=== PATIENT | male | born 1980 | race Caucasian/White ===

== ENCOUNTER 2019-08-01 13:47 | Emergency (ER) | payer SELFPAY ==
--- NOTE | 2019-08-01 14:00 | ER ---
Nurse's Notes [facility] Name: Jatinder Scott Age: 38 yrs Sex: Male : 1980 Arrival Date: 08/01/2019 Time: 13:48 Bed 12 Private MD: Domingo Dunlap H Diagnosis: Foreign body in left ear Presentation: 08/01 13:54 Presenting complaint: Patient states: A piece of my earbuds is stuck deep in my left la1 ear. Transition of care: patient was not received from another setting of care. Onset of symptoms was August 01, 2019. Risk Assessment: Do you want to hurt yourself or someone else? Patient reports no desire to harm self or others. Initial Sepsis Screen: Does the patient meet any 2 criteria? No. Patient's initial sepsis screen is negative. Does the patient have a suspected source of infection? No. Patient's initial sepsis screen is negative. Care prior to arrival: None. 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 - Social history:: Smoking status: Patient/guardian denies using tobacco. - Ebola Screening: : No symptoms or risks identified at this time. Screenin:55 Abuse screen: Denies threats or abuse. Nutritional screening: No deficits noted. la1 Tuberculosis screening: No symptoms or risk factors identified. Fall Risk None identified. Assessment: 13:55 General: Appears in no apparent distress. Behavior is calm, cooperative. Pain: la1 Complains of pain in left ear. Neuro: Level of Consciousness is awake, alert, obeys commands. Cardiovascular: Capillary refill < 3 seconds Patient's skin is warm and dry. Respiratory: Airway is patent Respiratory effort is even, unlabored. GI: No signs and/or symptoms were reported involving the gastrointestinal system. : No signs and/or symptoms were reported regarding the genitourinary system. Vital Signs: 13:55 BP 155 / 100; Pulse 74; Resp 16; Temp 97.6; Pulse Ox 100% on R/A; Weight 136.08 kg; la1 Height 6 ft. 4 in. (193.04 cm); 13:55 Body Mass Index 36.52 (136.08 kg, 193.04 cm) la1 ED Course: 13:48 Patient arrived in ED. am2 13:48 Domingo Dunlap DO is Private Physician. am2 13:54 Triage completed. la1 13:54 Arm band placed on. la1 13:56 Patient has correct armband on for positive identification. la1 13:57 Oscar Bello NP is PHCP. pm1 13:57 Adrienne Gibson MD is Attending Physician. pm1 14:02 No provider procedures requiring assistance completed. Patient did not have IV access ss during this emergency room visit. Administered Medications: No medications were administered Outcome: 13:59 Discharge ordered by MD. pm1 14:02 Discharged to home ambulatory. ss 14:02 Condition: good 14:02 Discharge instructions given to patient, Instructed on discharge instructions, follow up and referral plans. Demonstrated understanding of instructions, follow-up care, medications. 14:03 Patient left the ED. ss Signatures: Nazanin Vazquez RN RN Robert Su RN RN la1 Oscar Bello NP DRIVER'S EDUCATION INSTRUCTOR pm1 Anastacia Alicea am2
--- NOTE | 2019-08-01 14:00 | EDPHYS ---
Physician Documentation [facility] Name: Jatinder Scott Age: 38 yrs Sex: Male : 1980 Arrival Date: 08/01/2019 Time: 13:48 Bed 12 Private MD: Domingo Dunlap H ED Physician Adrienne Gibson HPI: 08/01 13:57 This 38 yrs old Male presents to ER via Ambulatory with complaints of Foreign pm1 Body In Ear - left/earbud. 13:57 The patient presents with a foreign body sensation, piece of his ear bud. The pm1 complaints affect the left ear. Onset: The symptoms/episode began/occurred this morning, at 04:00. Modifying factors: The symptoms are alleviated by nothing, the symptoms are aggravated by nothing. Associated signs and symptoms: The patient has no apparent associated signs or symptoms. Severity of symptoms: in the emergency department the symptoms are unchanged. The patient has not experienced similar symptoms in the past. 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 - Social history:: Smoking status: Patient/guardian denies using tobacco. - Ebola Screening: : No symptoms or risks identified at this time. ROS: 13:57 Constitutional: Negative for fever, chills, and weight loss. pm1 13:57 ENT: Positive for foreign body sensation. 13:57 All other systems are negative. Exam: 13:57 Constitutional: This is a well developed, well nourished patient who is awake, alert, pm1 and in no acute distress. Head/Face: Normocephalic, atraumatic. Eyes: Pupils equal round and reactive to light, extra-ocular motions intact. Lids and lashes normal. Conjunctiva and sclera are non-icteric and not injected. Cornea within normal limits. Periorbital areas with no swelling, redness, or edema. 13:57 ENT: External ear(s): are unremarkable, Ear canal(s): foreign body, small rubber black object, in the left external ear canal. 13:57 Neuro: Orientation: is normal, Motor: moves all fours, Gait: is steady, at a normal pace, without difficulty. Vital Signs: 13:55 BP 155 / 100; Pulse 74; Resp 16; Temp 97.6; Pulse Ox 100% on R/A; Weight 136.08 kg; la1 Height 6 ft. 4 in. (193.04 cm); 13:55 Body Mass Index 36.52 (136.08 kg, 193.04 cm) la1 Procedures: 13:57 Foreign Body Removal: small black rubber object from left ear canal, by using alligator pm1 clamps, The patient tolerated the removal well. MDM: 13:57 Patient medically screened. pm1 13:58 Data reviewed: vital signs. Data interpreted: Pulse oximetry: on room air is 100 %. pm1 Interpretation: normal. Counseling: I had a detailed discussion with the patient and/or guardian regarding: the historical points, exam findings, and any diagnostic results supporting the discharge/admit diagnosis, to return to the emergency department if symptoms worsen or persist or if there are any questions or concerns that arise at home. Administered Medications: No medications were administered Disposition: 17:46 Co-signature as Attending Physician, Adrienne Gibson MD. ma2 Disposition: 08/01/19 13:59 Discharged to Home. Impression: Foreign body in left ear. - Condition is Stable. - Discharge Instructions: Ear Foreign Body. - Medication Reconciliation Form, Thank You Letter, Antibiotic Education, Prescription Opioid Use form. - Follow up: Emergency Department; When: As needed; Reason: Worsening of condition. Follow up: Private Physician; When: As needed; Reason: Recheck today's complaints, Continuance of care, Re-evaluation by your physician. - Problem is new. - Symptoms are resolved. Signatures: Nazanin Vazquez RN RN Robert Su RN RN la1 Oscar Bello NP APPEALS SPECIALIST pm1 Adrienne Gibson MD MD ma2 Corrections: (The following items were deleted from the chart) 14:03 13:59 08/01/2019 13:59 Discharged to Home. Impression: Foreign body in left ear. ss Condition is Stable. Forms are Medication Reconciliation Form, Thank You Letter, Antibiotic Education, Prescription Opioid Use. Follow up: Emergency Department; When: As needed; Reason: Worsening of condition. Follow up: Private Physician; When: As needed; Reason: Recheck today's complaints, Continuance of care, Re-evaluation by your physician. Problem is new. Symptoms are resolved. pm1
[2019-08-01 14:15] VITALS: BP 155/100; TEMP 97.6; O2SAT 100
== END 2019-08-01 14:03 | disposition home or self-care (01) ==
LOC: ER 13:47
PROC: 09C4XZZ Extirpation of Matter from Left External Auditory Canal, External Approach (ICD-10-PCS; principal; 2019-08-01)
DX: T16.2XXA Foreign body in left ear, initial encounter (principal); X58.XXXA Exposure to other specified factors, initial encounter
CPT/HCPCS: 99281

== ENCOUNTER 2020-04-30 03:20 | Inpatient (IN) | payer SELFPAY ==
[2020-04-30] MEDS ORDERED: FOLIC ACID 5 MG/ML VIAL ONE (04:10)
[2020-04-30] MEDS ORDERED: MULTIVITAMINS 10 ML VIAL (INJ) IV ONE (04:10)
[2020-04-30] MEDS ORDERED: NA CHLORIDE 0.9% 1,000 ML ONE ×2 (04:10→14:26)
[2020-04-30] MEDS ORDERED: THIAMINE 200 MG/2 ML INJ ONE (04:10)
[2020-04-30 04:16] LABS: Absolute Lymphocytes (CBC) 0.6 K/uL (0.7-4.9); Basophils % 0.2 % (0-1.3); Hematocrit 48.8 % (39.6-49.0); Lymphocytes % 4.7 % (15.3-44.8); MPV 7.6 fL (7.6-11.3); RBC Red Blood Cell Count 4.81 M/uL (4.33-5.43)
[2020-04-30 04:22] LABS: Protime INR 0.91
[2020-04-30 05:08] LABS: Blood Morphology Comment NOT SEEN (NOT SEEN); Platelet Estimate ADEQ
[2020-04-30 05:09] LABS: ALT/SGPT 53 U/L (12-78); AST/SGOT 42 U/L (15-37); Albumin 3.9 g/dL (3.4-5.0); Alkaline Phosphatase 82 U/L (45-117); BUN Blood Urea Nitrogen 14 mg/dL (7-18); Bicarbonate 28 mmol/L (21-32); Bilirubin Direct < 0.1 mg/dL (0-0.2); Bilirubin Total 0.2 mg/dL (0.2-1.0); Glucose Level 108 mg/dL (74-106); Protein, Total 7.9 g/dL (6.4-8.2); Sodium Level 144 mmol/L (136-145)
[2020-04-30 06:02] LABS: Barbiturates NEGATIVE (NEGATIVE); Benzodiazepines POSITIVE (NEGATIVE); Cocaine POSITIVE (NEGATIVE); METHAMPHETAM NEGATIVE (NEGATIVE); Methadone NEGATIVE (NEGATIVE); Opiates POSITIVE (NEGATIVE); Phencyclidine NEGATIVE (NEGATIVE); THC Cannibis NEGATIVE (NEGATIVE)
--- NOTE | 2020-04-30 06:04 | ER ---
Nurse's Notes [facility] Name: Jatinder Scott Age: 39 yrs Sex: Male : 1980 Arrival Date: 04/30/2020 Time: 03:19 Bed 23 Private MD: Diagnosis: Altered mental status. Pneumonia. Substance abuse Presentation: 04/30 03:19 Chief complaint: EMS states: pt spouse found pt sleeping in kitchen on the floor, sg seemed confused to her so she called EMS for assistance. upon EMS arrival pt is a\T\ox3, but is drowsy and will fall asleep without stimulation, VSS in route to ER, pt reports having taken his hydrocodone and drinking alcohol beginning around 12 noon today. Coronavirus screen: Proceed with normal triage. Ebola Screen: Patient negative for fever greater than or equal to 101.5 degrees Fahrenheit, and additional compatible Ebola Virus Disease symptoms Patient denies exposure to infectious person. Patient denies travel to an Ebola-affected area in the 21 days before illness onset. No symptoms or risks identified at this time. Initial Sepsis Screen: Does the patient meet any 2 criteria? No. Patient's initial sepsis screen is negative. Does the patient have a suspected source of infection? No. Patient's initial sepsis screen is negative. Risk Assessment: Do you want to hurt yourself or someone else? Patient reports no desire to harm self or others. Onset of symptoms was April 30, 2020. Transition of care: patient was not received from another setting of care. 03:19 Method Of Arrival: EMS: [facility] 03:19 Acuity: JAYLEEN 3 sg Historical: - Allergies: 03:22 No Known Allergies; sg - Home Meds: 03:22 Hydrocodone-Acetaminophen Oral [Active]; sg - PMHx: 03:22 CYST IN BRAIN; sg - Immunization history:: Adult Immunizations not up to date. - Social history:: Smoking status: Patient reports the use of cigarette tobacco products, Patient uses alcohol, weekly. Screenin:30 Abuse screen: Denies threats or abuse. Denies injuries from another. Nutritional rv screening: No deficits noted. Tuberculosis screening: No symptoms or risk factors identified. Fall Risk None identified. Assessment: 03:30 General: Appears uncomfortable, Behavior is calm, cooperative. Pain: Denies pain. rv Neuro: Level of Consciousness is obeys commands, lethargic, Oriented to person, place, time, situation, Speech is normal, Pupils are PERRLA. Cardiovascular: Patient's skin is warm and dry. Rhythm is sinus tachycardia. Respiratory: Airway is patent Respiratory effort is even, unlabored, Breath sounds are clear bilaterally. Derm: Skin is intact. 04:30 Reassessment: patient back from CT scan. able to answer question. orientation x four. rv denies any pain. unable to maintain wakefulness. awaiting test results. 05:05 Reassessment: Patient and/or family updated on plan of care and expected duration. Pain rv level reassessed. Patient is alert, oriented x 3, equal unlabored respirations, skin warm/dry/pink. Neuro: Level of Consciousness is awake, alert, obeys commands, Oriented to person, place, time, situation, Moves all extremities. Full function Speech is normal. 07:00 General: Appears uncomfortable, Behavior is calm, cooperative. Pain: Denies pain. rb1 Neuro: Level of Consciousness is awake, alert, obeys commands, Oriented to person, place, time, situation. Cardiovascular: Capillary refill < 3 seconds Patient's skin is warm and dry. Respiratory: Airway is patent Respiratory effort is even, unlabored, Respiratory pattern is regular, symmetrical. GI: No signs and/or symptoms were reported involving the gastrointestinal system. : No signs and/or symptoms were reported regarding the genitourinary system. Musculoskeletal: Range of motion: intact in all extremities. 08:00 Reassessment: Patient appears in no apparent distress at this time. No changes from rb1 previously documented assessment. 08:57 Reassessment: Left a voice mail for Dr. Hramon requesting medication for agitation. rb1 23:55 Reassessment: report given to Caroline LONGORIA nurse for room 215. jd3 Vital Signs: 03:29 BP 136 / 70; Pulse 106; Resp 20; Temp 97.7(O); Pulse Ox 100% ; Weight 137.89 kg (R); rv Pain 0/10; 04:31 BP 145 / 79; Pulse 103; Resp 16; Pulse Ox 95% on R/A; rv 05:05 BP 146 / 93; Pulse 99; Resp 18; Pulse Ox 97% on R/A; rv 05:19 Temp 98.5(O); rv 07:00 BP 113 / 58; Pulse 102; Resp 21; Pulse Ox 95% ; rb1 08:29 BP 145 / 91; Pulse 102; Resp 20; Temp 99.1(O); Pulse Ox 90% on R/A; mh5 21:19 BP 153 / 82 LA (auto/lg); jp3 ED Course: 03:19 Patient arrived in ED. sg 03:19 Melvin Lazo MD is Attending Physician. pkl 03:19 Arm band placed on. sg 03:21 Triage completed. sg 03:29 Julian Lau, VON is Primary Nurse. rv 03:31 Patient has correct armband on for positive identification. property assessment monitor on. Pulse rv ox on. NIBP on. 03:49 Inserted saline lock: 20 gauge in left antecubital area, using aseptic technique. Blood rv collected. 04:27 CT Head Brain wo Cont In Process Unspecified. EDMS 05:08 Notified ED physician of a critical lab result(s). notified of bands of 18 per Servando in the lab. 06:02 Dev Moss is Hospitalizing Provider. pkl 07:03 XRAY CXR (1 view) In Process Unspecified. EDMS 08:47 Placed in gown. Call light in reach. Side rails up X 1. Warm blanket given. Pillow mh5 given. 14:00 Repeat lab(s) drawn. by me, sent to lab. First set of blood cultures drawn by me. jp3 14:12 Second set of blood cultures drawn by me. jp3 14:17 Diet tray given. Diet: Patient given a regular meal tray. jp3 17:51 Removal of peripheral IV. Catheter intact, dressing applied. jp3 17:51 Repeat lab(s) drawn. by me, sent to lab. Inserted saline lock: 20 gauge in right [facility] antecubital area, using aseptic technique. Blood collected. 17:55 Diet tray given. jp3 21:19 Repeat lab(s) drawn. by me, sent to lab. jp3 Administered Medications: 04:25 Drug: Banana Bag - (NS 0.9% 1000 ml, foLIC Acid 1 mg, Thiamine 100 mg, Multivitamin 1 rv amp) Route: IV; Rate: calculated rate; Site: left antecubital; Outcome: 06:03 Decision to Hospitalize by Provider. pkl 07/08 00:19 Patient left the ED. jd3 Signatures: Dispatcher [employer] EDMS Jasiel Aguero, RN RN Melvin Lacey MD MD pkl Barber, Rebecca RN RN rb1 Lia Burnett [facility] oHmero Boucher RN RN jd3 Julian Lau RN RN rv Travis Rangel jp3 Corrections: (The following items were deleted from the chart) 04/30 03:46 03:19 Chief complaint: EMS states: pt spouse found pt sleeping in kitchen on the floor, sg seemed confused to her so she called EMS for assistance. upon EMS arrival pt is alter and orientedx3 is drowsy and will fall asleep without stimulation, VSS in route to ER, pt reports having taken his hydrocodone and drinking alcohol beginning around 12 noon today sg 03:46 03:19 Chief complaint: EMS states: pt spouse found pt sleeping in kitchen on the floor, sg seemed confused to her so she called EMS for assistance. upon EMS arrival pt is aa\T\ox3, but is drowsy and will fall asleep without stimulation, VSS in route to ER, pt reports having taken his hydrocodone and drinking alcohol beginning around 12 noon today sg 10:25 07:00 BP 113 / 58; Pulse 102bpm; Resp 21bpm; Pulse Ox 20%; rb1 rb1
--- NOTE | 2020-04-30 06:04 | EDPHYS ---
Physician Documentation [facility] Name: Jatinder Scott Age: 39 yrs Sex: Male : 1980 Arrival Date: 04/30/2020 Time: 03:19 Bed 23 Private MD: ED Physician Melvin Lazo HPI: 04/30 03:55 This 39 yrs old Male presents to ER via EMS with complaints of Altered Mental pkl Status. 03:55 The patient presents with decreased mental status. Onset: The symptoms/episode pkl began/occurred just prior to arrival. Possible causes: drug use, narcotics, alcohol. Patient admits to drinking alcohol and taking hydrocodone earlier today. Historical: - Allergies: 03:22 No Known Allergies; sg - Home Meds: 03:22 Hydrocodone-Acetaminophen Oral [Active]; sg - PMHx: 03:22 CYST IN BRAIN; sg - Immunization history:: Adult Immunizations not up to date. - Social history:: Smoking status: Patient reports the use of cigarette tobacco products, Patient uses alcohol, weekly. ROS: 03:55 Eyes: Negative for injury, pain, redness, and discharge, ENT: Negative for injury, pkl pain, and discharge, Neck: Negative for injury, pain, and swelling, Cardiovascular: Negative for chest pain, palpitations, and edema, Respiratory: Negative for shortness of breath, cough, wheezing, and pleuritic chest pain, Abdomen/GI: Negative for abdominal pain, nausea, vomiting, diarrhea, and constipation, Back: Negative for injury and pain, : Negative for injury, bleeding, discharge, and swelling, MS/Extremity: Negative for injury and deformity, Skin: Negative for injury, rash, and discoloration. 03:55 Neuro: Positive for altered mental status. Exam: 03:55 Head/Face: Normocephalic, atraumatic. Eyes: Pupils equal round and reactive to light, pkl extra-ocular motions intact. Lids and lashes normal. Conjunctiva and sclera are non-icteric and not injected. Cornea within normal limits. Periorbital areas with no swelling, redness, or edema. ENT: Nares patent. No nasal discharge, no septal abnormalities noted. Tympanic membranes are normal and external auditory canals are clear. Oropharynx with no redness, swelling, or masses, exudates, or evidence of obstruction, uvula midline. Mucous membranes moist. Neck: Trachea midline, no thyromegaly or masses palpated, and no cervical lymphadenopathy. Supple, full range of motion without nuchal rigidity, or vertebral point tenderness. No Meningismus. Chest/axilla: Normal chest wall appearance and motion. Nontender with no deformity. No lesions are appreciated. Cardiovascular: Regular rate and rhythm with a normal S1 and S2. No gallops, murmurs, or rubs. Normal PMI, no JVD. No pulse deficits. Respiratory: Lungs have equal breath sounds bilaterally, clear to auscultation and percussion. No rales, rhonchi or wheezes noted. No increased work of breathing, no retractions or nasal flaring. Abdomen/GI: Soft, non-tender, with normal bowel sounds. No distension or tympany. No guarding or rebound. No evidence of tenderness throughout. Back: No spinal tenderness. No costovertebral tenderness. Full range of motion. Skin: Warm, dry with normal turgor. Normal color with no rashes, no lesions, and no evidence of cellulitis. MS/ Extremity: Pulses equal, no cyanosis. Neurovascular intact. Full, normal range of motion. 03:55 Neuro: Orientation: drowsy, Mentation: slow to respond, Cranial nerves: grossly normal, Motor: moves all fours. Vital Signs: 03:29 BP 136 / 70; Pulse 106; Resp 20; Temp 97.7(O); Pulse Ox 100% ; Weight 137.89 kg (R); rv Pain 0/10; 04:31 BP 145 / 79; Pulse 103; Resp 16; Pulse Ox 95% on R/A; rv 05:05 BP 146 / 93; Pulse 99; Resp 18; Pulse Ox 97% on R/A; rv 05:19 Temp 98.5(O); rv 07:00 BP 113 / 58; Pulse 102; Resp 21; Pulse Ox 95% ; rb1 08:29 BP 145 / 91; Pulse 102; Resp 20; Temp 99.1(O); Pulse Ox 90% on R/A; mh5 21:19 BP 153 / 82 LA (auto/lg); jp3 MDM: 03:19 Patient medically screened. pkl 05:14 Data reviewed: vital signs, nurses notes, lab test result(s), radiologic studies, CT pkl scan, plain films. ED course: Patient more alert. Said he had fever coughing since yesterday.. 05:52 ED course: Patient feeling better. Discussed lab. and X' rays and CT Scan results. pkl 06:01 ED course: Talked to Dr. Moss,, admit. pkl 04/30 03:52 Order name: Acetaminophen; Complete Time: 05:51 pkl 04/30 03:52 Order name: Basic Metabolic Panel; Complete Time: 05:51 pkl 04/30 03:52 Order name: CBC with Diff; Complete Time: 05:09 pkl 04/30 03:52 Order name: ETOH Level; Complete Time: 04:46 pkl 04/30 03:52 Order name: Hepatic Function; Complete Time: 05:51 pkl 04/30 03:52 Order name: PT-INR; Complete Time: 04:47 pkl 04/30 03:52 Order name: Ptt, Activated; Complete Time: 04:47 pkl 04/30 03:52 Order name: Salicylate; Complete Time: 04:46 pkl 04/30 03:52 Order name: Urine Drug Screen; Complete Time: 06:04 pkl 04/30 04:00 Order name: Glucose, Ancillary Testing; Complete Time: 04:47 EDMS 04/30 04:17 Order name: Manual Differential; Complete Time: 05:09 EDMS 04/30 05:14 Order name: COVID-19 rv 04/30 12:39 Order name: CORONAVIRUS EDMS 04/30 14:50 Order name: Troponin I EDMS 04/30 03:52 Order name: EKG; Complete Time: 03:54 pkl 04/30 03:52 Order name: EKG - Nurse/Tech; Complete Time: 04:25 pkl 04/30 03:52 Order name: IV Saline Lock; Complete Time: 03:58 pkl 04/30 03:52 Order name: Labs collected and sent; Complete Time: 03:58 pkl 04/30 03:52 Order name: Urine Dipstick-Ancillary (obtain specimen); Complete Time: 05:05 pkl 04/30 03:52 Order name: CT Head Brain wo Cont pkl 04/30 05:10 Order name: XRAY CXR (1 view) pkl 04/30 14:50 Order name: Thyroid Stimulating Hormone EDID 04/30 18:22 Order name: Troponin I EDID 04/30 21:49 Order name: Troponin I EDID Administered Medications: 04:25 Drug: Banana Bag - (NS 0.9% 1000 ml, foLIC Acid 1 mg, Thiamine 100 mg, Multivitamin 1 rv amp) Route: IV; Rate: calculated rate; Site: left antecubital; Disposition: 04/30/20 06:03 Hospitalization ordered by Dev Moss for Observation. Preliminary diagnosis is Altered mental status. Pneumonia. Substance abuse. - Bed requested for Telemetry/MedSurg (observation). - Status is Observation. jd3 - Condition is Stable. - Problem is new. - Symptoms are unchanged. Signatures: Dispatcher [employer] EDMS Raven Jordan, RN RN Erlinda Gonzalez RN VON dmJasiel Granda RN Melvin Tapia MD MD pkl Davies, Jonathon, RN RN jd3 Julian Lau RN RN rv Corrections: (The following items were deleted from the chart) 06:06 06:03 Hospitalization Ordered by Dev Moss for Inpatient Admission. Preliminary pkl diagnosis is Altered mental status. Pneumonia. Bed requested for Telemetry/MedSurg (Inpatient). Status is Inpatient Admission. Condition is Stable. Problem is new. Symptoms are unchanged. pkl 06:55 06:06 04/30/2020 06:03 Hospitalization Ordered by Dev Moss for Inpatient pkl Admission. Preliminary diagnosis is Altered mental status. Pneumonia. Substance abuse. Bed requested for Telemetry/MedSurg (Inpatient). Status is Inpatient Admission. Condition is Stable. Problem is new. Symptoms are unchanged. pkl 08:31 06:55 04/30/2020 06:03 Hospitalization Ordered by Dev Moss for Observation. dmKenzie Preliminary diagnosis is Altered mental status. Pneumonia. Substance abuse. Bed requested for Telemetry/MedSurg (observation). Status is Observation. Condition is Stable. Problem is new. Symptoms are unchanged. pkl 23:00 08:31 04/30/2020 06:03 Hospitalization Ordered by Dev Moss for Observation. minna Preliminary diagnosis is Altered mental status. Pneumonia. Substance abuse. Bed requested for [facility] ER HOLD. Status is Observation. Condition is Stable. Problem is new. Symptoms are unchanged. dm5 05/01 00:19 04/30 23:00 04/30/2020 06:03 Hospitalization Ordered by Dev Moss for Observation. jd3 Preliminary diagnosis is Altered mental status. Pneumonia. Substance abuse. Bed requested for Telemetry/MedSurg (observation). Status is Observation. Condition is Stable. Problem is new. Symptoms are unchanged. kl
--- NOTE | 2020-04-30 07:22 | P.HP ---
Certification for Inpatient Patient admitted to: Observation With expected LOS: <2 Midnights Practitioner: I am a practitioner with admitting privileges, knowledge of patient current condition, hospital course, and medical plan of care. Services: Services provided to patient in accordance with Admission requirements found in Title 42 Section 412.3 of the Code of Federal Regulations Patient History Date of Service: 04/30/20 Reason for admission: Confusion History of Present Illness: 39-year-old gentleman with a history of hypertension, but pain and obesity was brought to the emergency department obtunded. According to reports the found him lying on the kitchen floor confused. Patient had mild leukocytosis and chest x-ray shows bilateral infiltrates in the ED. Patient's mental status had improved during my examination in the ED. He was awake and able to communicate, and admitted to taking [place] and diazepam last night. Patient reported nonproductive cough, he denied fever. He also reports some chest pain. Patient was up and ambulating to the bathroom in the ED. He is placed under observation for further management. Allergies No Known Allergies Allergy (Verified 12/17/11 00:33) Home Medications: Hydrocodone 10/APAP 325 [[place] 10/325] 1 each PO Q4HP PRN #0 tab 12/17/11 - Past Medical/Surgical History Diabetic: No -: Hypertension -: Chronic back pain -: Obesity - Family History Father -: Diabetes - Social History Alcohol use: Yes CD- Drugs: Yes Caffeine use: Yes Review of Systems Other: Except as documented, all other systems reviewed and negative. Physical Examination - Physical Exam General: In no apparent distress, Oriented x3, Other (Awake,) HEENT: Atraumatic, Normocephalic, PERRLA, Mucous membr. moist/pink, Sclerae nonicteric Neck: Supple, JVD not distended Respiratory: Normal air movement, Crackles/rales (Bilateral) Cardiovascular: No edema, Regular rate/rhythm, Normal S1 S2 Capillary refill: <2 Seconds Gastrointestinal: Normal bowel sounds, Soft and benign, Non-distended, No tenderness Musculoskeletal: No swelling, No erythema Integumentary: No rashes Neurological: Normal speech, Normal strength at 5/5 x4 extr, Cranial nerves 3-12 intact - Studies Laboratory Data (last 24 hrs) 04/30/20 03:55: PT 10.7, INR 0.91, APTT 30.3 04/30/20 03:55: WBC 12.3 H, Hgb 15.9, Hct 48.8, Plt Count 201 04/30/20 03:55: Sodium 144, Potassium 5.0, BUN 14, Creatinine 1.56 H, Glucose 108 H, Total Bilirubin 0.2, AST 42 H, ALT 53, Alkaline Phosphatase 82 Microbiology Data (last 24 hrs): 04/30/20 05:25 Nasopharnyx Coronavirus COVID-19 PCR - Final Assessment and Plan - Problems (Diagnosis) (1) Metabolic encephalopathy Current Visit: Yes Status: Acute (2) Pneumonia Current Visit: Yes Status: Acute (3) COVID-19 ruled out Current Visit: Yes Status: Acute (4) Obesity Current Visit: Yes Status: Acute (5) Leukocytosis Current Visit: Yes Status: Acute (6) Chest pain Current Visit: Yes Status: Acute - Plan Metabolic encephalopathy likely secondary to benzodiazepine and opioid use. Place patient under observation Hydrate with IV fluid. Neuro checks Screened for COVID 19 is pending. Droplet isolation Empiric IV antibiotics. Trend troponin. Echocardiogram pending troponin results. - Advance Directives Does patient have a Living Will: No Does patient have a Durable POA for Healthcare: No
--- NOTE | 2020-04-30 07:39 | RAD REPORT ---
EXAM DESCRIPTION: RAD - Chest Single View - 04/30/2020 7:03 am CLINICAL HISTORY: leukocytosis, shortness of breath COMPARISON: None TECHNIQUE: AP portable chest image was obtained 04/30/2020 7:03 am . FINDINGS: Lung volumes are low. Prominent overlying soft tissues affect the examination. No dense consolidations seen. Interstitial pattern is prominent with the baseline for this patient un known. Minimal airspace opacities are present as well. Cardiac silhouette is enlarged by portable technique, shallow inspiration and body habitus. Vasculatu re within normal limits. No measurable pleural effusion and no pneumothorax. No acute bony abnormality seen. No acute aortic findings suspected. IMPRESSION: Prominent interstitial pattern with baseline unknown. Patchy airspace opacities are present which could be infiltrate or edema.
[2020-04-30] MEDS ORDERED: ACETAMINOPHEN 325 MG TABLET ONE (10:28)
--- NOTE | 2020-04-30 10:54 | EKG ---
Test Date: 2020-04-30 Test Time: 04:20:12 Lead Case Manager: RV MEASUREMENT RESULTS: Intervals: Rate: 103 WV: 130 QRSD: 82 QT: 330 QTc: 432 [place]: P: 67 WV: 130 QRS: 37 T: 32 INTERPRETIVE STATEMENTS: Sinus tachycardia Otherwise normal ECG Compared to ECG 03/28/2016 04:27:16 Sinus rhythm no longer present Left ventricular hypertrophy no longer present Electronically Signed On 04-30-20 10:53:50 CDT by Nabor Ramsey
--- NOTE | 2020-04-30 12:47 | RAD REPORT ---
EXAM DESCRIPTION: CT - Head Brain Wo Cont - 04/30/2020 5:50 am CLINICAL HISTORY: Altered mental status TECHNIQUE: Multiple axial CT images of the brain were performed followed by sagittal and coronal rec onstructed images. The CT study is performed according to ALARA (as low as reasonably achievable) or ALARA/IMAGE GENTLY, with automatic adjustment of mA and/or kV according to patient size. Performed on: 04/30/2020 at 3:56 AM COMPARISON: 03/28/2016. FINDINGS: There is no evidence of mass, acute mass effect or midline shift. There is a stable arachn oid cyst along the right sylvian fissure. There is no evidence of acute intracranial hemorrhage. Ther e is stable asymmetry of the lateral ventricles. The cerebral sulci and ventricles are otherwise norm al in size and configuration. There are no focal abnormal areas of increased or decreased attenuation. There is trace mucosal thickening of the paranasal sinuses. The mastoid air cells are clear. The orbital contents are grossly unremarkable. No acute osseous abnormalities are identified. No focal soft tissue abnormalities are identified. IMPRESSION: 1. There is no evidence of acute intracranial pathology. 2. Stable arachnoid cyst along the right sylvian fissure and stable asymmetry of the lateral ventricl es. Electronically signed by: Barbara Wong DO 04/30/2020 4:37 AM CDT Due to temporary technical issues with the PACS/Fluency reporting system, reports are being signed by the in house radiologist without review as a courtesy to ensure prompt reporting. The interpreting r adiologist is fully responsible for the content of the report.
[2020-04-30] MEDS: AZITHROMYCIN IV 500 MG in NA CHLORIDE 0.9% 250 ML IVPB SCH (13:06)
[2020-04-30] MEDS ORDERED: ACETAMINOPHEN 325 MG TABLET PO PRN (13:06)
[2020-04-30] MEDS: ENOXAPARIN 40 MG/0.4 ML SQ SCH (13:06)
[2020-04-30] MEDS: NA CHLORIDE 0.9% 1,000 ML IV SCH (13:06)
[2020-04-30] MEDS ORDERED: ACETAMINOPHEN 500 MG TAB PO PRN (13:06)
[2020-04-30] MEDS: CEFTRIAXONE/SWI 1gm 1 GM/10 ML SYR IV SCH (13:06)
[2020-04-30] MEDS ORDERED: BENZONATATE 100 MG CAP PO PRN (13:06)
[2020-04-30] MEDS ORDERED: ENOXAPARIN 40 MG/0.4 ML SQ ONE (14:25)
[2020-04-30] MEDS ORDERED: CEFTRIAXONE/SWI 1gm 1 GM/10 ML SYR ONE (14:26)
[2020-04-30 14:50] LABS: Thyroid Stimulating Hormone 0.154 uIU/mL (0.360-3.740); Troponin I 0.41 ng/mL (0.0-0.045)
[2020-04-30] MEDS ORDERED: BENZONATATE 100 MG CAP PO ONE (14:57)
[2020-05-01 00:44] VITALS: BMI 37.6
[2020-05-01] MEDS: NA CHLORIDE 0.9% 1,000 ML IV SCH (05:06)
[2020-05-01 05:25] LABS: Urine Appearance CLEAR; Urine Bilirubin NEGATIVE (NEG); Urine Blood NEGATIVE (NEG); Urine Color YELLOW; Urine Glucose NEGATIVE (NEG); Urine Protein NEGATIVE (NEG)
[2020-05-01 05:27] LABS: Urine Microscopic Reflex NO UMIC
[2020-05-01 06:22] LABS: Absolute Lymphocytes (CBC) 1.7 K/uL (0.7-4.9); Basophils % 0.5 % (0-1.3); Hematocrit 46.1 % (39.6-49.0); MPV 8.9 fL (7.6-11.3); RBC Red Blood Cell Count 4.64 M/uL (4.33-5.43)
[2020-05-01 06:23] LABS: BUN Blood Urea Nitrogen 15 mg/dL (7-18); Bicarbonate 24 mmol/L (21-32); Glucose Level 93 mg/dL (74-106); Sodium Level 142 mmol/L (136-145)
[2020-05-01 06:27] LABS: Magnesium 2.3 mg/dL (1.8-2.4); Potassium 4.3 mmol/L (3.5-5.1)
[2020-05-01 06:28] LABS: Phosphorus 0.5 mg/dL (2.5-4.9)
[2020-05-01] MEDS ORDERED: POTASSIUM PHOS 30 MM in NA CHLORIDE 0.9% 500 ML IV ONE (08:00)
--- NOTE | 2020-05-01 08:29 | CON ---
Date of Consultation: 05/01/[address] Moss on 04/30/2020. I saw the patient on 05/01/2020. Reason For Consultation: Syncope, elevated troponin, metabolic encephalopathy and drug abuse. History Of Present Illness: Mr. Scott is 39 years old who has a history of arachnoid cyst in his b rain, but no previous medical history otherwise. He came in with syncope. He does not remember what happened and still does not remember what happened now, but according to him, he was blue on the delmy or, was found by his daughter. He does not remember the EMS bring him to the hospital, but he rememb ers the last when he came to the hospital. His blood pressure was 160/70, white count was 12,000, cr eatinine is 1.56. His creatinine is now improved to 0.8. His white count is down to 8.0. He was po sitive for cocaine and opioids. He admits to drug use. His EKG showed sinus tachycardia. Chest x-r ay showed possible infiltrate versus edema. His troponin was mildly elevated. He never had any ches t pain. Past Medical History: Negative. Allergies: NONE. Review of Systems: Negative. Social History: Positive for drugs and alcohol. Medications: At home include testosterone. Physical Examination: Vital Signs: His weight is 317 pounds. Blood pressure is 160/70. HEENT: Negative. Neck: Supple with no bruit. Chest: Clear. Cardiac: Revealed a regular rhythm and rate. No murmurs, gallops, or rubs. Abdomen: Benign. Extremities: Revealed no clubbing, cyanosis, or edema. Diagnostic Data: As stated earlier. Impression And Plan: 1.Elevated troponin secondary to drug abuse. 2.Mild renal insufficiency that is improved with hydration. 3.Elevated white count that has improved on antibiotics. The patient has received Lovenox. His thy roid level is low and that may need to be evaluated further, but from my standpoint, he needs an echo cardiogram today and if that is normal, he can go home. He needs to be counseled regarding his drug abuse and alcohol abuse. Maybe he can see somebody as an outpatient in that regard. MAHESH/NETTEL Voice ID: [id number] Report ID: [id number]
[2020-05-01] MEDS: CEFTRIAXONE/SWI 1gm 1 GM/10 ML SYR IV SCH (08:34)
[2020-05-01] MEDS: ENOXAPARIN 40 MG/0.4 ML SQ SCH (08:34)
--- NOTE | 2020-05-01 10:24 | P.DS ---
Admission Date: 05/01/20 Discharge Date: 05/02/20 Disposition: ROUTINE DISCHARGE Discharge Condition: FAIR Reason for Admission: Confusion - Problems (1) Metabolic encephalopathy Current Visit: Yes Status: Acute (2) Pneumonia Current Visit: Yes Status: Acute (3) COVID-19 ruled out Current Visit: Yes Status: Acute (4) Obesity Current Visit: Yes Status: Acute (5) Leukocytosis Current Visit: Yes Status: Acute (6) Chest pain Current Visit: Yes Status: Acute Brief History of Present Illness: 39-year-old gentleman with a history of hypertension, but pain and obesity was brought to the emergency department obtunded. According to reports the found him lying on the kitchen floor confused. Patient had mild leukocytosis and chest x-ray shows bilateral infiltrates in the ED. Patient's mental status had improved during my examination in the ED. He was awake and able to communicate, and admitted to taking [place] and diazepam last night. Patient reported nonproductive cough, he denied fever. He also reports some chest pain. Patient was up and ambulating to the bathroom in the ED. He is placed under observation for further management. Hospital Course: Patient was admitted to the medical floor. Treated with supportive measures for possible drug overdose with opiates and benzodiazepine. His mental status improved within 24 hrs of presentation. Troponin trended came back positive and flat with no acute rise to suggest ACS. His urine toxicology screen was positive for cocaine which could indicate cocaine induced coronary spasms leading to elevated troponin. His chest x-ray demonstrated bilateral infiltrates more could be CHF. Echocardiogram done reported normal EF and no wall motion abnormalities. Patient was seen by cardiology and deemed stable for discharge. He will follow with patient in the office as an outpatient. Patient discharged with aspirin. Vital Signs/Physical Exam: Temp Pulse Resp BP Pulse Ox 97.8 F 60 18 174/82 H 95 05/01/20 08:00 05/01/20 08:00 05/01/20 08:00 05/01/20 08:00 05/01/20 08:00 General: Alert, In no apparent distress, Oriented x3 HEENT: Mucous membr. moist/pink Neck: Supple, JVD not distended Respiratory: Clear to auscultation bilaterally, Normal air movement Cardiovascular: No edema, Regular rate/rhythm, Normal S1 S2 Gastrointestinal: Normal bowel sounds, Soft and benign, No tenderness Musculoskeletal: No swelling, No erythema Integumentary: No rashes Neurological: Normal speech, Normal strength at 5/5 x4 extr Laboratory Data at Discharge: WBC 8.0 K/uL (4.3-10.9) D 05/01/20 05:37 Hgb 15.3 g/dL (13.6-17.9) 05/01/20 05:37 Hct 46.1 % (39.6-49.0) 05/01/20 05:37 Plt Count 194 K/uL (152-406) 05/01/20 05:37 PT 10.7 SECONDS (9.5-12.5) 04/30/20 03:55 INR 0.91 04/30/20 03:55 APTT 30.3 SECONDS (24.3-36.9) 04/30/20 03:55 Sodium 142 mmol/L (136-145) 05/01/20 05:37 Potassium 4.3 mmol/L (3.5-5.1) 05/01/20 05:37 BUN 15 mg/dL (7-18) 05/01/20 05:37 Creatinine 0.88 mg/dL (0.55-1.3) 05/01/20 05:37 Glucose 93 mg/dL (74-106) 05/01/20 05:37 Phosphorus 0.5 mg/dL (2.5-4.9) L* 05/01/20 05:37 Magnesium 2.3 mg/dL (1.8-2.4) 05/01/20 05:37 Total Bilirubin 0.2 mg/dL (0.2-1.0) 04/30/20 03:55 AST 42 U/L (15-37) H 04/30/20 03:55 ALT 53 U/L (12-78) 04/30/20 03:55 Alkaline Phosphatase 82 U/L (45-117) 04/30/20 03:55 Troponin I 0.20 ng/mL (0.0-0.045) H 04/30/20 21:10 Home Medications: Testosterone Cypionate [Testone Cik] 200 mg IM Q5D 04/30/20 Aspirin [Aspirin EC 81 MG] 81 mg PO DAILY #30 tablet. 05/01/20 New Medications: Aspirin [Aspirin EC 81 MG] 81 mg PO DAILY #30 tablet. Diet: AHA Activity: Ad maritza Followup: Nabor Ramsey MD [ACTIVE - CAN ADMIT] - 1-2 Weeks
[2020-05-01] MEDS: AZITHROMYCIN IV 500 MG in NA CHLORIDE 0.9% 250 ML IVPB SCH (11:39)
[2020-05-01] MEDS: POTASS/SODIUM PHOSPHATE 1 PKT POWD.PACK PO SCH ×3 (21:12→22:23)
[2020-05-02] MEDS: NA CHLORIDE 0.9% 1,000 ML IV SCH (03:54)
[2020-05-02 05:53] LABS: BUN Blood Urea Nitrogen 12 mg/dL (7-18); Bicarbonate 24 mmol/L (21-32); Glucose Level 105 mg/dL (74-106); Phosphorus 1.1 mg/dL (2.5-4.9); Potassium 4.4 mmol/L (3.5-5.1); Sodium Level 141 mmol/L (136-145)
[2020-05-02] MEDS: POTASS/SODIUM PHOSPHATE 1 PKT POWD.PACK PO SCH ×3 (06:25→11:03)
--- NOTE | 2020-05-02 08:37 | ECHO ---
HEIGHT: 6 ft 5 in WEIGHT: 317 lb 11.2 oz DATE OF STUDY: 05/01/[address]: bennie hess 2-DIMENSIONAL: YES M.MODE: YES DOPPLER: YES COLOR FLOW: YES TDS: NO PORTABLE: NO DEFINITY: NO BUBBLE STUDY: NO DIAGNOSIS: ELEVATED TROPONIN CARDIAC HISTORY: CATHERIZATION: NO SURGERY: NO PROSTHETIC VALVE: NO PACEMAKER: NO MEASUREMENTS (cm) DIASTOLIC (NORMALS) SYSTOLIC (NORMALS) IVSd 1.1 (0.6-1.2) LA Diam 3.8 (1.9-4.0) LVEF 64% LVIDd 5.2 (3.5-5.7) LVIDs 3.4 (2.0-3.5) %FS 35% LVPWd 1.2 (0.6-1.2) Ao Diam 3.3 (2.0-3.7) 2 DIMENSIONAL ASSESSMENT: RIGHT ATRIUM: NORMAL LEFT ATRIUM: NORMAL RIGHT VENTRICLE: NORMAL LEFT VENTRICLE: NORMAL TRICUSPID VALVE: NORMAL MITRAL VALVE: NORMAL PULMONIC VALVE: NORMAL AORTIC VALVE: NORMAL PERICARDIAL EFFUSION: NONE AORTIC ROOT: NORMAL LEFT VENTRICULAR WALL MOTION: NORMAL DOPPLER/COLOR FLOW: NORMAL COMMENTS: NORMAL 2D ECHOCARDIOGRAM WITH DOPPLER. NO WALL MOTION ABNORMALITY. NO EFFUSION. TECHNOLOGIST: Rj SOUZA
--- NOTE | 2020-05-02 09:13 | P.PN ---
Subjective Date of Service: 05/01/20 Chief Complaint: Confusion Patient is currently awake and alert. Altered mental status has resolved. He currently has no complain. He has been up and ambulating. Physical Examination - Vital Signs Temperature: 97.3 F Blood Pressure: 168/74 Pulse: 60 Respirations: 18 Pulse Ox (%): 95 - Physical Exam General: Alert, In no apparent distress, Oriented x3 HEENT: Mucous membr. moist/pink, Sclerae nonicteric Neck: Supple, JVD not distended Respiratory: Clear to auscultation bilaterally, Normal air movement Cardiovascular: No edema, Regular rate/rhythm, Normal S1 S2 Capillary refill: <2 Seconds Gastrointestinal: Normal bowel sounds, Soft and benign, No tenderness Musculoskeletal: No swelling, No erythema Integumentary: No rashes Neurological: Normal strength at 5/5 x4 extr Assessment And Plan - Current Problems (Diagnosis) (1) Metabolic encephalopathy Current Visit: Yes Status: Acute (2) Pneumonia Current Visit: Yes Status: Acute (3) COVID-19 ruled out Current Visit: Yes Status: Acute (4) Obesity Current Visit: Yes Status: Acute (5) Leukocytosis Current Visit: Yes Status: Acute (6) Chest pain Current Visit: Yes Status: Acute - Plan Metabolic encephalopathy resolved. Troponin elevation likely demand ischemia or secondary to coronary spasms from cocaine use. Screened for COVID 19 is negative. Echocardiogram is pending. Cardiology input appreciated.
[2020-05-02] MEDS: AZITHROMYCIN IV 500 MG in NA CHLORIDE 0.9% 250 ML IVPB SCH (09:26)
[2020-05-02] MEDS: ENOXAPARIN 40 MG/0.4 ML SQ SCH (09:28)
[2020-05-02] MEDS: CEFTRIAXONE/SWI 1gm 1 GM/10 ML SYR IV SCH (09:35)
[2020-05-02 10:03] VITALS: O2SAT 95
[2020-05-02] MEDS ORDERED: POTASS/SODIUM PHOSPHATE 1 PKT POWD.PACK ONE (11:08)
[2020-05-02 12:42] VITALS: BP 179/98; TEMP 96.9
[2020-05-03] MEDS ORDERED: AMLODIPINE 2.5 MG TAB PO ONE (10:04)
== END 2020-05-02 12:30 | disposition home or self-care (01) | DRG 917 ==
LOC: ER 03:20 → ERHOLD 07:27 → 2ND 05-01 00:03 → OBSVTOIN 05-01 07:49
PROVIDERS: ADMIT Internal Medicine; ATTEND Internal Medicine
PROC: 8E0ZXY6 Isolation (ICD-10-PCS; principal; 2020-05-01)
DX: T40.2X1A Poisoning by other opioids, accidental (unintentional), initial encounter (principal); G92 Toxic encephalopathy; I11.0 Hypertensive heart disease with heart failure; I50.9 Heart failure, unspecified; E66.9 Obesity, unspecified; D72.829 Elevated white blood cell count, unspecified; R07.9 Chest pain, unspecified; R79.89 Other specified abnormal findings of blood chemistry; F14.10 Cocaine abuse, uncomplicated; F11.10 Opioid abuse, uncomplicated; N28.9 Disorder of kidney and ureter, unspecified; F10.10 Alcohol abuse, uncomplicated; T42.4X1A Poisoning by benzodiazepines, accidental (unintentional), initial encounter; Z79.891 Long term (current) use of opiate analgesic; Z11.59 Encounter for screening for other viral diseases; Z68.37 Body mass index [BMI] 37.0-37.9, adult
CPT/HCPCS: 36415; 70450; 71045; 80048; 80076; 80307; 80320; 80329; 81003; 82947; 83735; 84100; 84443; 84484; 85025; 85610; 85730; 87040; 93005; 93306; 96374; 99284; G0378; J0456; J0696; J1650; J3411; J7030; J7040; J7050; U0002

== ENCOUNTER 2020-08-13 16:06 | Emergency (ER) | payer SELFPAY ==
[2020-08-13] MEDS ORDERED: NA CHLORIDE 0.9% 1,000 ML ONE (16:09)
[2020-08-13] MEDS ORDERED: FLUMAZENIL 0.1 MG/ML (5 mL VIAL) IV ONE (16:26)
[2020-08-13 16:46] LABS: Protime INR 2.08
[2020-08-13] MEDS ORDERED: NA CHLORIDE 0.9% 2,000 ML ONE (16:47)
[2020-08-13] MEDS ORDERED: ACETAMINOPHEN 325 MG TABLET ONE (16:47)
[2020-08-13 16:50] LABS: Absolute Lymphocytes (CBC) 0.5 K/uL (0.7-4.9); Basophils % 0.3 % (0-1.3); Lymphocytes % 5.2 % (15.3-44.8); MPV 9.1 fL (7.6-11.3); RBC Red Blood Cell Count 4.75 M/uL (4.33-5.43)
[2020-08-13 17:20] LABS: Urine Blood 3+ (NEG); Urine Glucose NEGATIVE (NEG); Urine Protein 3+ (NEG); Urine pH 6.5 (5.0-7.0)
[2020-08-13 17:22] LABS: Barbiturates NEGATIVE (NEGATIVE); Benzodiazepines POSITIVE (NEGATIVE); Cocaine NEGATIVE (NEGATIVE); METHAMPHETAM NEGATIVE (NEGATIVE); Methadone NEGATIVE (NEGATIVE); Opiates NEGATIVE (NEGATIVE); Phencyclidine NEGATIVE (NEGATIVE); THC Cannibis NEGATIVE (NEGATIVE)
[2020-08-13 17:28] LABS: CKMB Creatine Kinase MB 2.9 ng/mL (0.3-3.6)
[2020-08-13 17:34] LABS: Albumin 3.1 g/dL (3.4-5.0); Alkaline Phosphatase 112 U/L (45-117); BUN Blood Urea Nitrogen 34 mg/dL (7-18); Bicarbonate 29 mmol/L (21-32); Bilirubin Direct 1.6 mg/dL (0-0.2); Bilirubin Total 2.3 mg/dL (0.2-1.0); Glucose Level 91 mg/dL (74-106); Protein, Total 6.6 g/dL (6.4-8.2); Sodium Level 135 mmol/L (136-145)
[2020-08-13 17:37] LABS: Platelet Estimate DECR; White Blood Cell Scan OK (OK)
[2020-08-13 17:38] LABS: Blood Morphology Comment NOTED (NOT SEEN)
[2020-08-13 17:39] LABS: ALT/SGPT 4100 U/L (12-78); AST/SGOT 2918 U/L (15-37); Potassium 5.9 mmol/L (3.5-5.1); Troponin (Emerg Dept Use Only) 0.89 ng/mL (0.0-0.045)
[2020-08-13] MEDS ORDERED: PROMETHAZINE INJ 25 MG/ML AMP ONE (17:49)
[2020-08-13] MEDS ORDERED: FOLIC ACID 1 MG, MULTIVITAMINS INJ 10 ML, THIAMINE HCL 100 MG in NA CHLORIDE 0.9% 1,000 ML IV ONE (18:00)
[2020-08-13 18:04] LABS: Urine Amorphous Sediment 3+ /HPF (NONE SEEN); Urine Bacteria <20 /HPF (NONE SEEN); Urine Culture Reflex Order REFLEXED
[2020-08-13] MEDS ORDERED: INSULIN -REGULAR HUMAN 50 UNIT/0.5 ML ML ONE (18:09)
[2020-08-13] MEDS ORDERED: D50W 25 GM/50 ML SYRINGE/VIAL IV ONE (18:09)
[2020-08-13 18:50] LABS: Arterial Blood Carboxyhemoglob 1.6 % (0-1.5); Blood Gas Oxyhemoglobin 91.1 % (94-97); Blood O2 Saturation 93.5 % (92-98.5)
[2020-08-13] MEDS ORDERED: CALCIUM GLUCONATE 1gm/100 ML NS (4.65 mEq/100mL) IV ONE ×2 (19:00)
--- NOTE | 2020-08-13 19:36 | RAD REPORT ---
EXAM DESCRIPTION: CT - Chest Abd Pelvis Wo Con - 08/13/2020 7:22 pm CLINICAL HISTORY: Shortness of breath and abdominal pain COMPARISON: None TECHNIQUE: Computed axial tomography of the chest, abdomen and pelvis was obtained. Oral contrast wa s given. IV contrast was not requested. All CT scans are performed using dose optimization technique as appropriate and may include automated exposure control or mA/KV adjustment according to patient size. FINDINGS: The evaluation of mediastinum, coty, vessels and solid organs is limited secondary to the lack of IV contrast administration No mediastinal or hilar lymphadenopathy is seen. A pleural effusion is not present. A pericardial effusion is not seen. Lungs are clear Limited evaluation of the liver and spleen as the patient's arms were down by his side resulting in a rtifact Liver, spleen, Pancreas, adrenals and kidneys appear grossly normal There is no evidence of diverticulitis. Normal appendix. Small inguinal hernias contain fat Mild stranding within the retroperitoneal fat IMPRESSION: Mild stranding within the retroperitoneal fat is a nonspecific finding and of questiona ble significance Small bilateral inguinal hernias
--- NOTE | 2020-08-13 19:38 | RAD REPORT ---
EXAM DESCRIPTION: [place] Single View08/13/2020 5:04 pm CLINICAL HISTORY: sob COMPARISON: 2014 FINDINGS: The lungs appear clear of acute infiltrate. The heart is moderately enlarged IMPRESSION: No acute abnormalities displayed
--- NOTE | 2020-08-13 19:41 | RAD REPORT ---
EXAM DESCRIPTION: CT - Head Brain Wo Cont - 08/13/2020 7:25 pm CLINICAL HISTORY: Alteration of awareness/confusion COMPARISON: April 2020 TECHNIQUE: Computed axial tomography of the head was obtained. IV contrast was not requested. All CT scans are performed using dose optimization technique as appropriate and may include automated exposure control or mA/KV adjustment according to patient size. FINDINGS: An intracranial bleed is not seen . The ventricles are normal in caliber. 6.5 centimeter Low-density fluid collection along right temporal convexity is unchanged compatible wi th an arachnoid cyst. Fluid within the sinuses/ mastoids is not seen. IMPRESSION: No acute intracranial abnormality is seen. If patient's symptoms persist MRI of the bra in would be recommended.
[2020-08-13] MEDS ORDERED: ASPIRIN 81 MG CHEWABLE TABLET ONE (19:46)
[2020-08-13] MEDS ORDERED: PIPER/TAZO/NS 3.375gm 3.375 GM/100 ML BAG ONE (19:47)
[2020-08-13] MEDS ORDERED: ENOXAPARIN 100 MG/ML SYR SQ ONE (19:47)
--- NOTE | 2020-08-13 20:49 | RAD REPORT ---
EXAM DESCRIPTION: US - Abdomen Exam Limited - 08/13/2020 8:42 pm CLINICAL HISTORY: Abdominal pain. COMPARISON: None. FINDINGS: The gallbladder wall is not thickened. A gallstone is not seen. The biliary tree is normal caliber. IMPRESSION: Unremarkable gallbladder ultrasound.
[2020-08-13] MEDS ORDERED: D5 0.45 NS 1,000 ML IV ONE (21:46)
[2020-08-13] MEDS ORDERED: Acetylcysteine 6000mg/30mL IV ONE ×2 (21:46→21:48)
--- NOTE | 2020-08-13 21:47 | ER ---
Nurse's Notes [facility] Name: Jatinder Scott Age: 39 yrs Sex: Male : 1980 Arrival Date: 08/13/2020 Time: 16:07 Bed 3 Private MD: Diagnosis: Altered mental status, unspecified;Acute Kidney Injury;Liver Failure Presentation: 08/13 15:58 Chief complaint: EMS states: called out by spouse, found unresponsive at home. On EMS sv arrival, pt had labored respirations, pt might have taken an unknown pill. Narcan 1mg IVP given, pt then began having regular respirations. Pt then was A\T\O x1, EKG -ST 115, RR-14 BS-94 18G R AC. Coronavirus screen: At this time, unable to obtain information related to travel outside the [place] Ebola Screen: Unable to complete the Ebola screening because: The patient is disoriented. Initial Sepsis Screen: Does the patient meet any 2 criteria? RR > 20 per min. Altered Mental Status. HR > 90 bpm. Yes Does the patient have a suspected source of infection? Yes: Other: fever. Risk Assessment: Do you want to hurt yourself or someone else? Unable to obtain. Onset of symptoms was August 13, 2020. 15:58 Method Of Arrival: EMS: [facility] sv 16:07 Acuity: JAYLEEN 1 hb Triage Assessment: 15:55 General: Appears distressed, well developed, Behavior is uncooperative. Pain: Unable to sv use pain scale. Patient is disoriented. FLACC scale score is 0 out of 10. Neuro: Level of Consciousness is lethargic. Cardiovascular: Rhythm is sinus tachycardia. Respiratory: Airway is patent Respiratory effort is shallow, weak, Respiratory pattern is tachypnea. GI: Abdomen is obese. Derm: Skin temperature is hot pt's feet are mottled and purple up to the bilateral lower calves. 15:55 EENT: Nares blue residue noted in pt's nostrils.. 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 - Social history:: Smoking status: unknown. Screenin:14 Abuse screen: Denies threats or abuse. Denies injuries from another. Nutritional sv screening: No deficits noted. Tuberculosis screening: No symptoms or risk factors identified. Fall Risk No fall in past 12 months (0 pts). Secondary diagnosis (15 points) AMS. IV access (20 points). Ambulatory Aid- None/Bed Rest/Nurse Assist (0 pts). Gait- Normal/Bed Rest/Wheelchair (0 pts) Mental Status- Overestimates/Forgets Limitations (15 pts.). Total Montilla Fall Scale indicates High Risk Score (45 or more points). Fall prevention measures have been instituted. Side Rails Up X 2 Placed Close to Nursing Station Frequent Obs/Assessments Occuring As available patient and family educated on Fall Prevention Program and Strategies. Assessment: 16:25 Reassessment: Pt talking more to staff, eyes open and answering questions. Pt stated sv that he took 10 Xanax's sometime today. When asked about suicidal ideation, pt refused to answer the question. 17:00 Reassessment: Patient and/or family updated on plan of care and expected duration. Pain sv level reassessed. Pt restless in the bed, attempting to get out of the bed. Pt informed to remain in bed d/t safety precautions. 17:25 Reassessment: Spouse at the bedside, Richelle ACOSTA spoke with her. sv 17:35 Reassessment: Spouse stated that they came home from [place] last night around 2300 sv and fell on the ground. c/o right shoulder pain. Informed Richelle PORT ENGINEER. 17:40 Reassessment: [employer] at the bedside as a sitter. sv 18:15 Reassessment: Patient appears in no apparent distress at this time. Patient and/or sv family updated on plan of care and expected duration. Pain level reassessed. Pt remains restless in the stretcher. Spouse remains at the bedside. Arslan [email or web address].ru as a sitter at the bedside. 18:15 Derm: Skin is pt's bilateral feet are purple at this time. Richelle ACOSTA aware. sv 18:57 Reassessment: Called and spoke with Sondra in [place], that the pt has calmed down within sv the last 10 mins, if they could attempt to do the CT. She stated they would come get the pt. 19:13 Reassessment: Pt to CT via stretcher with Maryellen LONGORIA and Sondra from CT. sv 19:30 General: Appears obese. Pain: Unable to use pain scale. Patient is disoriented. Neuro: Level of Consciousness is confused, lethargic. Cardiovascular: Heart tones S1 S2. Respiratory: Airway is patent Respiratory effort is even, unlabored, Respiratory pattern is regular, symmetrical, Breath sounds are clear bilaterally. GI: Abdomen is round non-distended. : No deficits noted. EENT: No deficits noted. Derm: Skin is flushed. Musculoskeletal: Circulation, motion, and sensation intact. 20:30 Reassessment: Patient appears in no apparent distress at this time. Patient and/or family updated on plan of care and expected duration. Pain level reassessed. Pt much more alert and oriented. 21:30 Reassessment: Patient appears in no apparent distress at this time. No changes from previously documented assessment. Patient and/or family updated on plan of care and expected duration. Pain level reassessed. Patient is alert, oriented x 3, equal unlabored respirations, skin warm/dry/pink. Pt awake and alert, updated on POC need for transfer. 22:30 Reassessment: Patient appears in no apparent distress at this time. Patient and/or family updated on plan of care and expected duration. Pain level reassessed. Patient is alert, oriented x 3, equal unlabored respirations, skin warm/dry/pink. 23:30 Reassessment: Report given to Saskia Burgess RN. 08/14 00:30 Reassessment: Patient appears in no apparent distress at this time. Patient and/or family updated on plan of care and expected duration. Pain level reassessed. Patient is alert, oriented x 3, equal unlabored respirations, skin warm/dry/pink. Report given to [facility]. Vital Signs: 08/13 16:01 BP 156 / 113; Pulse 112; Resp 38; Pulse Ox 98% ; sv 16:15 BP 157 / 98; Pulse 115; Resp 36; Temp 102.2(C); Pulse Ox 100% on 2 lpm NC; sv 16:29 Weight 137 kg; sv 17:00 BP 122 / 109; Pulse 110; Resp 30; Pulse Ox 95% on 2 lpm NC; sv 17:13 BP 165 / 104; Pulse 110; Resp 26; Temp 101.8(C); Pulse Ox 96% on 2 lpm NC; sv 17:50 Pulse Ox 90% on 2 lpm NC; sv 18:16 Pulse 102; Resp 30; Temp 100.8(C); Pulse Ox 99% on 3 lpm NC; sv 18:53 BP 151 / 95; Pulse 98; Resp 24; Pulse Ox 97% on 3 lpm NC; sv 19:12 Temp 99.6(O); sv 20:00 BP 138 / 86; Pulse 98; Resp 20; Temp 99.6; Pulse Ox 98% on 3 lpm NC; wh 21:00 BP 127 / 69; Pulse 88; Resp 20; Temp 99.2; Pulse Ox 97% 3 lpm ; wh 22:00 BP 130 / 81; Pulse 88; Resp 20; Pulse Ox 95% on 3 lpm NC; wh 23:00 BP 169 / 62; Pulse 90; Resp 18; Pulse Ox 95% on R/A; wh 08/14 00:00 BP 143 / 90; Pulse 89; Resp 18; Pulse Ox 96% on R/A; wh 08/13 17:50 Pt's O2 increased to 3L per NC. O2 sat up to 95%. sv ED Course: 15:55 First set of blood cultures drawn by ED staff. Inserted saline lock: 18 gauge in left sv antecubital area, using aseptic technique. ,using aseptic technique. done by Natalya LONGORIA Blood collected. 15:55 monitoring specialist on. Pulse ox on. NIBP on. sv 16:00 Patient has correct armband on for positive identification. Placed in gown. Bed in low sv position. Call light in reach. Side rails up X2. 16:00 Arm band placed on. sv 16:05 Second set of blood cultures drawn by ED staff. sv 16:07 Patient arrived in ED. ss 16:07 Richelle Little FNP-Long is PHCP. snw 16:07 Ceasar Solorzano MD is Attending Physician. snw 16:08 Ashley Campbell, VON is Primary Nurse. sv 16:25 EKG done, by ED staff, reviewed by Ceasar Solorzano MD. Lam cath inserted, using sterile mt technique, 16 Fr., by nc, balloon inflated, to gravity drainage, Patient tolerated well. 16:31 Acetaminophen Sent. sv 16:31 Basic Metabolic Panel Sent. sv 16:31 CBC with Diff Sent. sv 16:31 ETOH Level Sent. sv 16:37 Triage completed. hb 17:09 Chest Single View XRAY In Process Unspecified. EDMS 17:34 CBC Smear Scan Sent. hb 17:40 Notified Nurse Practitioner and/or Physician Viscosity Tester of a critical lab result(s), hb Lactate 4.3, troponin 1.89, K 5.9, AST 2918, ALT 4100. 18:21 Lam cath removed intact, balloon deflated, done by Arslan interactive video technician. sv 18:47 Add On-Lab Sent. sv 18:48 ABG drawn. by RT staff, on oxygen. sv 19:03 PHCP role handed off by Richelle Little FNP-C [facility] 19:03 Mj Cooney PA is PHCP. jmm 19:[address] via stretcher. sv 19:13 Report given to Maryellen LONGORIA. sv 19:15 Primary Nurse role handed off by Ashley Campbell RN sv 19:22 Chest Abd Pelvis Wo Con In Process Unspecified. EDMS 19:24 CT Head Brain wo Cont In Process Unspecified. EDMS 19:29 Maryellen Mera is Primary Nurse. 20:[address] [facility] with Lacy. Transferred call to JADON Mares tt3 regarding the pt case, as he is the provider. 20:43 US Abdomen Limited In Process Unspecified. EDMS 21:10 Lacy called back to speak with JADON Mares regarding the pt case. tt3 22:29 Lacy Brown called to request Covid results on the pt. She also gave admin approval. tt3 Covid results and face sheet faxed to per her request. The accepting physician is Dr. Olivares and accepted the pt at 2123. The pt is going to [address] [place] [address] Bed 6. Report to be called to [phone]. 23:34 Inserted saline lock: 18 gauge in right antecubital area, using aseptic technique. jp3 23:44 [facility] is transferring pt. ETA is approximately 30-35 minutes. tt3 08/14 00:41 No provider procedures requiring assistance completed. Patient transferred, IV remains in place. Administered Medications: 08/13 16:05 Drug: NS 0.9% (30 ml/kg) 30 ml/kg Route: IV; Rate: bolus; Site: left antecubital; sv 08/14 00:42 Follow up: Response: No adverse reaction; IV Status: Completed infusion 08/13 16:13 Drug: Romazicon 0.2 mg Route: IVP; Site: left antecubital; sv 16:30 Follow up: Response: No adverse reaction; Marked relief of symptoms sv 16:35 CANCELLED (pt awake for po administration): Tylenol Suppository 650 mg HI once snw 16:50 Drug: Tylenol 650 mg Route: PO; sv 17:29 Follow up: Response: No adverse reaction; Temperature is decreased sv 17:38 Drug: Phenergan 12.5 mg Route: IVP; Site: left antecubital; sv 17:43 Follow up: Response: No adverse reaction sv 18:10 Drug: D50W 50 ml Route: IVP; Site: left antecubital; sv 18:26 Follow up: Response: No adverse reaction sv 18:10 Drug: Insulin Regular Human 10 units {Co-Signature: hb (Natalya Urrutia RN).} Route: sv IVP; Site: left antecubital; 18:26 Follow up: Response: No adverse reaction sv 20:54 Follow up: Response: No adverse reaction 18:26 Drug: Calcium Gluconate 1 grams Route: IVPB; Infused Over: 60 mins; Site: left sv antecubital; 08/14 00:42 Follow up: Response: No adverse reaction; IV Status: Completed infusion 08/13 19:45 Drug: Lovenox 100 mg Route: Sub-Q; Site: left lower abdomen; 20:53 Follow up: Response: No adverse reaction 19:45 Drug: Zosyn 3.375 grams Route: IVPB; Infused Over: 60 mins; Site: left antecubital; 20:53 Follow up: Response: No adverse reaction; IV Status: Completed infusion 19:46 Drug: Aspirin Chewable Tablet 324 mg Route: PO; 20:53 Follow up: Response: No adverse reaction 20:54 Drug: Banana Bag - (NS 0.9% 1000 ml, foLIC Acid 1 mg, Thiamine 100 mg, Multivitamin 1 wh amp) Route: IV; Rate: 150 ml/hr; Site: left antecubital; 08/14 00:42 Follow up: Response: No adverse reaction; IV Status: Completed infusion 08/13 21:28 Not Given (Physician Discretion): MucoMYST - Acetylcysteine 50 mg/kg IV at calculated [facility] rate once; not to exceed 5.5 grams, administer over 4 hours 22:00 Drug: Acetylcysteine 150 mg/kg Route: IV; Rate: calculated rate; Site: left antecubital; 23:10 Follow up: Response: No adverse reaction; IV Status: Completed infusion 23:10 Drug: D5-1/2 NS 1000 ml Route: IV; Rate: TKO; Site: left antecubital; 08/14 00:42 Follow up: Response: No adverse reaction; IV Status: Infusion continued upon transfer Outcome: 08/13 21:46 ER care complete, transfer ordered by . [facility] 08/14 00:41 Transferred by ground EMS to [facility], Transfer form completed. X-rays sent w/ patient. Note: Report given to [facility] Condition: stable Instructed on the need for transfer. 00:43 Patient left the ED. Signatures: Dispatcher [employer] Ashley Larson, VON LONGORIA sv Richelle Little, ANTIQUE FURNITURE REPAIRER-C ANTIQUE FURNITURE REPAIRER-Csnw Mj Cooney PA PA jmm Smirch, Shelby, RN RN Natalya Urrutia, VON LONGORIA Angelic Erwin mt, Winsy Travis Rangel jp3 Singh Acuña tt3 Natalya Urrutia RN Corrections: (The following items were deleted from the chart) 08/13 17:18 17:13 BP 165 / 104; Pulse 110bpm; Resp 26bpm; Pulse Ox 96% 2 lpm Nasal Cannula; sv sv 18:50 15:55 Derm: Skin temperature is hot pt's feet are mottled up to the the lower calves. svsv 19:00 18:15 Reassessment: Patient appears in no apparent distress at this time. Patient sv and/or family updated on plan of care and expected duration. Pain level reassessed. Pt remains restless in the stretcher. Spouse remains at the bedside. Arslan Jhonny rincon as a sitter at the bedside sv
--- NOTE | 2020-08-13 21:47 | EDPHYS ---
Physician Documentation [facility] Name: Jatinder Scott Age: 39 yrs Sex: Male : 1980 Arrival Date: 08/13/2020 Time: 16:07 Bed 3 Private MD: ED Physician Ceasar Solorzano HPI: 08/13 16:10 This 39 yrs old Male presents to ER via Unassigned with complaints of snw unresponsive. 16:10 The patient presents to the emergency department with a possible overdose, found snw unresponsive. Context: Method: unknown but pt has some sort of blue substance in right nare. Associated signs and symptoms: Pertinent positives: unresponsive. Severity of symptoms: At their worst the symptoms were incapacitating in the emergency department the symptoms have improved mildly. The patient has not experienced similar symptoms in the past. recent fx of right shoulder. found unresponsive by family and ems was called. 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 - Social history:: Smoking status: unknown. ROS: 16:12 Unable to obtain ROS due to altered mental status, obtunded state. snw Exam: 16:12 Head/Face: Normocephalic, atraumatic. ENT: Nares patent. No nasal discharge, no snw septal abnormalities noted. Tympanic membranes are normal and external auditory canals are clear. Oropharynx with no redness, swelling, or masses, exudates, or evidence of obstruction, uvula midline. Mucous membranes moist. Neck: Trachea midline, no thyromegaly or masses palpated, and no cervical lymphadenopathy. Supple, full range of motion without nuchal rigidity, or vertebral point tenderness. No Meningismus. Chest/axilla: Normal chest wall appearance and motion. Nontender with no deformity. No lesions are appreciated. Cardiovascular: Regular rate and rhythm with a normal S1 and S2. No gallops, murmurs, or rubs. Normal PMI, no JVD. No pulse deficits. Respiratory: Lungs have equal breath sounds bilaterally, clear to auscultation and percussion. No rales, rhonchi or wheezes noted. No increased work of breathing, no retractions or nasal flaring. Abdomen/GI: Soft, non-tender, with normal bowel sounds. No distension or tympany. No guarding or rebound. No evidence of tenderness throughout. Back: No spinal tenderness. No costovertebral tenderness. Full range of motion. MS/ Extremity: Pulses equal, no cyanosis. Neurovascular intact. Full, normal range of motion. 16:12 Constitutional: The patient appears awake, obese, obtunded, with eyes open mydriatic, equal pupils, blue substance in right nare. EMS gave Narcan 1mg without much response. 103.2 oral temp. Mottled skin to bilateral lower extremities 16:12 Skin: Appearance: Color: dusky, mottled lower extremities. 16:12 Neuro: Orientation: unable to test, Mentation: somnolent. Vital Signs: 16:01 BP 156 / 113; Pulse 112; Resp 38; Pulse Ox 98% ; sv 16:15 BP 157 / 98; Pulse 115; Resp 36; Temp 102.2(C); Pulse Ox 100% on 2 lpm NC; sv 16:29 Weight 137 kg; sv 17:00 BP 122 / 109; Pulse 110; Resp 30; Pulse Ox 95% on 2 lpm NC; sv 17:13 BP 165 / 104; Pulse 110; Resp 26; Temp 101.8(C); Pulse Ox 96% on 2 lpm NC; sv 17:50 Pulse Ox 90% on 2 lpm NC; sv 18:16 Pulse 102; Resp 30; Temp 100.8(C); Pulse Ox 99% on 3 lpm NC; sv 18:53 BP 151 / 95; Pulse 98; Resp 24; Pulse Ox 97% on 3 lpm NC; sv 19:12 Temp 99.6(O); sv 20:00 BP 138 / 86; Pulse 98; Resp 20; Temp 99.6; Pulse Ox 98% on 3 lpm NC; wh 21:00 BP 127 / 69; Pulse 88; Resp 20; Temp 99.2; Pulse Ox 97% 3 lpm ; wh 22:00 BP 130 / 81; Pulse 88; Resp 20; Pulse Ox 95% on 3 lpm NC; wh 23:00 BP 169 / 62; Pulse 90; Resp 18; Pulse Ox 95% on R/A; wh 08/14 00:00 BP 143 / 90; Pulse 89; Resp 18; Pulse Ox 96% on R/A; wh 08/13 17:50 Pt's O2 increased to 3L per NC. O2 sat up to 95%. sv MDM: 16:10 Patient medically screened. snw 16:24 Data reviewed: vital signs, nurses notes. Data interpreted: Pulse oximetry: on room air snw is 94 %. Interpretation: hypoxia. Counseling: I had a detailed discussion with the patient and/or guardian regarding: the historical points, exam findings, and any diagnostic results supporting the discharge/admit diagnosis, lab results, radiology results, the need for further work-up and treatment in the hospital. Response to treatment: awoke enough to speak post romazicon. 19:02 Transition of care: After a detail discussion of the patient's case, care is snw transferred to [facility]. 19:02 ED course: awaiting CT and CoVid results. Report to Mj Cooney, PAc. snw 21:43 ED course: I discussed the patient with Dr. Wright whom accepted transfer. [facility] 08/13 16:08 Order name: Acetaminophen sv 08/13 16:08 Order name: Basic Metabolic Panel sv 08/13 16:08 Order name: CBC with Diff sv 08/13 16:08 Order name: ETOH Level sv 08/13 16:08 Order name: Hepatic Function; Complete Time: 17:40 sv 08/13 16:08 Order name: PT-INR; Complete Time: 17:01 sv 08/13 16:08 Order name: Ptt, Activated; Complete Time: 17:01 sv 08/13 16:08 Order name: Salicylate; Complete Time: 17:05 sv 08/13 16:08 Order name: Urine Drug Screen; Complete Time: 17:24 sv 08/13 16:08 Order name: Lactate; Complete Time: 17:52 sv 08/13 16:08 Order name: Blood Culture Adult (2) sv 08/13 16:08 Order name: Acetaminophen Level; Complete Time: 17:40 EDMS 08/13 16:08 Order name: Basic Metabolic Panel; Complete Time: 17:40 EDMS 08/13 16:09 Order name: CBC with Automated Diff; Complete Time: 17:40 EDMS 08/13 16:09 Order name: Alcohol Serum/Plasma; Complete Time: 17:31 EDMS 08/13 16:09 Order name: Amylase, Serum; Complete Time: 17:40 snw 08/13 16:09 Order name: Ckmb; Complete Time: 17:40 snw 08/13 16:09 Order name: CPK; Complete Time: 17:40 snw 08/13 16:09 Order name: Lipase; Complete Time: 17:40 snw 08/13 16:09 Order name: Procalcitonin; Complete Time: 17:56 snw 08/13 16:09 Order name: Troponin (emerg Dept Use Only); Complete Time: 17:40 snw 08/13 16:09 Order name: Urine Microscopic Only; Complete Time: 18:15 snw 08/13 16:09 Order name: Chest Single View XRAY; Complete Time: 19:46 snw 08/13 16:42 Order name: Urine Dipstick--Ancillary (enter results); Complete Time: 17:24 bd 08/13 17:33 Order name: CBC Smear Scan; Complete Time: 17:40 EDMS 08/13 17:53 Order name: Chest Abd Pelvis Wo Con; Complete Time: 19:46 EDMS 08/13 17:57 Order name: ABG; Complete Time: 19:01 snw 08/13 18:05 Order name: Urine Culture EDMS 08/13 18:40 Order name: Add On-Lab w 08/13 19:08 Order name: Triglycerides Level; Complete Time: 19:23 EDMS 08/13 19:21 Order name: CT Head Brain wo Cont; Complete Time: 19:46 j 08/13 19:50 Order name: US Abdomen Limited; Complete Time: 20:52 [facility] 08/13 20:41 Order name: Lactate Sepsis 2 HR Follow-up; Complete Time: 20:50 EDMS 08/13 21:19 Order name: Phosphorus; Complete Time: 21:58 [facility] 08/13 21:23 Order name: COVID-19 [facility] 08/13 21:49 Order name: SARS-COV-2 RT PCR; Complete Time: 21:58 EDMS 08/13 16:08 Order name: EKG; Complete Time: 16:09 08/13 16:08 Order name: EKG - Nurse/Tech; Complete Time: 16:08 08/13 16:08 Order name: IV Saline Lock; Complete Time: 16:09 sv 08/13 16:08 Order name: Labs collected and sent; Complete Time: 16:09 sv 08/13 16:08 Order name: Urine Dipstick-Ancillary (obtain specimen); Complete Time: 16:09 sv 08/13 16:09 Order name: Cardiac monitoring; Complete Time: 16:30 snw 08/13 16:09 Order name: EKG; Complete Time: 16:11 snw 08/13 16:09 Order name: EKG - Nurse/Tech; Complete Time: 16:30 snw 08/13 16:09 Order name: IV Saline Lock; Complete Time: 16:30 snw 08/13 16:09 Order name: Labs collected and sent; Complete Time: 16:30 snw 08/13 16:09 Order name: O2 Per Protocol; Complete Time: 16:30 snw 08/13 16:09 Order name: O2 Sat Monitoring; Complete Time: 16:30 snw 08/13 16:09 Order name: Urine Dipstick-Ancillary (obtain specimen); Complete Time: 16:30 snw 08/13 16:09 Order name: Accucheck; Complete Time: 16:27 snw 08/13 16:09 Order name: IV Saline Lock - Large Bore; Complete Time: 16:27 snw 08/13 16:09 Order name: Lam; Complete Time: 16:27 snw 08/13 16:10 Order name: Misc. Order: suction at bedside; Complete Time: 16:10 snw 08/13 16:18 Order name: Misc. Order: criticore; Complete Time: 16:27 snw Administered Medications: 16:05 Drug: NS 0.9% (30 ml/kg) 30 ml/kg Route: IV; Rate: bolus; Site: left antecubital; sv 08/14 00:42 Follow up: Response: No adverse reaction; IV Status: Completed infusion 08/13 16:13 Drug: Romazicon 0.2 mg Route: IVP; Site: left antecubital; sv 16:30 Follow up: Response: No adverse reaction; Marked relief of symptoms sv 16:35 CANCELLED (pt awake for po administration): Tylenol Suppository 650 mg AZ once snw 16:50 Drug: Tylenol 650 mg Route: PO; sv 17:29 Follow up: Response: No adverse reaction; Temperature is decreased sv 17:38 Drug: Phenergan 12.5 mg Route: IVP; Site: left antecubital; 17:43 Follow up: Response: No adverse reaction sv 18:10 Drug: D50W 50 ml Route: IVP; Site: left antecubital; sv 18:26 Follow up: Response: No adverse reaction sv 18:10 Drug: Insulin Regular Human 10 units {Co-Signature: hb (Natalya Urrutia RN).} Route: sv IVP; Site: left antecubital; 18:26 Follow up: Response: No adverse reaction sv 20:54 Follow up: Response: No adverse reaction 18:26 Drug: Calcium Gluconate 1 grams Route: IVPB; Infused Over: 60 mins; Site: left sv antecubital; 08/14 00:42 Follow up: Response: No adverse reaction; IV Status: Completed infusion 08/13 19:45 Drug: Lovenox 100 mg Route: Sub-Q; Site: left lower abdomen; 20:53 Follow up: Response: No adverse reaction 19:45 Drug: Zosyn 3.375 grams Route: IVPB; Infused Over: 60 mins; Site: left antecubital; 20:53 Follow up: Response: No adverse reaction; IV Status: Completed infusion 19:46 Drug: Aspirin Chewable Tablet 324 mg Route: PO; 20:53 Follow up: Response: No adverse reaction 20:54 Drug: Banana Bag - (NS 0.9% 1000 ml, foLIC Acid 1 mg, Thiamine 100 mg, Multivitamin 1 wh amp) Route: IV; Rate: 150 ml/hr; Site: left antecubital; 08/14 00:42 Follow up: Response: No adverse reaction; IV Status: Completed infusion 08/13 21:28 Not Given (Physician Discretion): MucoMYST - Acetylcysteine 50 mg/kg IV at calculated jmm rate once; not to exceed 5.5 grams, administer over 4 hours 22:00 Drug: Acetylcysteine 150 mg/kg Route: IV; Rate: calculated rate; Site: left antecubital; 23:10 Follow up: Response: No adverse reaction; IV Status: Completed infusion 23:10 Drug: D5-1/2 NS 1000 ml Route: IV; Rate: TKO; Site: left antecubital; 08/14 00:42 Follow up: Response: No adverse reaction; IV Status: Infusion continued upon transfer Disposition: 06:23 Co-signature as Attending Physician, Ceasar Solorzano MD I agree with the assessment and kdr plan of care. Disposition: 08/13/20 21:46 Transfer ordered to [facility]. Diagnosis are Altered mental status, unspecified, Acute Kidney Injury, Liver Failure. - Reason for transfer: Higher level of care. - Accepting physician is Kyle. - Condition is Stable. - Problem is new. - Symptoms have improved. Signatures: Dispatcher [employer] EDMS Ashley Campbell RN RN Ceasar Benitez MD MD kdr Richelle Little, COLD ROLLER-C COLD ROLLER-Csnw Mj Cooney PA PA jmm Habalo, Winsy Natalya Urrutia RN Corrections: (The following items were deleted from the chart) 08/13 16:18 16:09 Rodrick Hugger ordered. snw snw 16:35 16:24 Tylenol Suppository 650 mg AZ once ordered. snw snw 16:35 16:35 Tylenol Suppository 650 mg AZ once ordered. snw snw 16:47 16:11 ACETAMINOPHEN+C.LAB.BRZ ordered. EDMS EDMS 16:47 16:11 BASIC METABOLIC PANEL+C.LAB.BRZ ordered. EDMS EDMS 16:47 16:11 CBC+H.LAB.BRZ ordered. EDMS EDMS 16:47 16:11 ETHANOL+C.LAB.BRZ ordered. EDMS EDMS 16:47 16:11 HEPATIC FUNCTION+C.LAB.BRZ ordered. EDMS EDMS 16:47 16:11 PROTIME (+INR)+COAG.LAB.BRZ ordered. EDMS EDMS 16:47 16:11 PTT, ACTIVATED+COAG.LAB.BRZ ordered. EDMS EDMS 16:47 16:11 SALICYLATE+C.LAB.BRZ ordered. EDMS EDMS 16:47 16:11 URINE DRUG SCREEN+CHEM UR.LAB.BRZ ordered. EDMS EDMS 16:47 16:11 LACTATE+C.LAB.BRZ ordered. EDMS EDMS 16:49 16:11 BLOOD CULTURE*+BA.LAB.BRZ ordered. EDMS EDMS 17:16 16:09 Misc. Order ordered. snw sv 17:53 17:28 Chest For PE Angio+CT.RAD.BRZ ordered. EDMS EDMS 17:54 17:52 Abdomen Pelvis W Con+CT.RAD.BRZ ordered. EDMS EDMS 20:49 16:28 CORONAVIRUS+MR.LAB.BRZ ordered. EDMS EDMS 08/14 00:43 08/13 21:46 08/13/2020 21:46 Transfer ordered to [facility]. wh Diagnosis is Altered mental status, unspecified; Acute Kidney Injury; Liver Failure. Reason for transfer: Higher level of care. Accepting physician is Kyle. Condition is Stable. Problem is new. Symptoms have improved. normm
[2020-08-13] MEDS ORDERED: NA CHLORIDE 0.9% 250 ML ONE (22:01)
[2020-08-14 01:19] VITALS: TEMP 99.2
[2020-08-14 01:22] VITALS: BP 143/90; O2SAT 96
--- NOTE | 2020-08-14 11:29 | EKG ---
Test Date: 2020-08-13 Test Time: 16:08:57 [employer] Operator Surface: MIKE MEASUREMENT RESULTS: Intervals: Rate: 113 MS: 128 QRSD: 84 QT: 286 QTc: 392 [place]: P: 31 MS: 128 QRS: 62 T: 13 INTERPRETIVE STATEMENTS: Sinus tachycardia Otherwise normal ECG Compared to ECG 04/30/2020 04:20:12 No significant changes Electronically Signed On 08-14-20 11:27:12 CDT by Nabor Ramsey
== END 2020-08-14 00:43 | disposition short-term general hospital (02) ==
LOC: ER 16:06
DX: N17.9 Acute kidney failure, unspecified (principal); K72.90 Hepatic failure, unspecified without coma; Z20.828 Contact with and (suspected) exposure to other viral communicable diseases
CPT/HCPCS: 36415; 51702; 70450; 71045; 71250; 74176; 76705; 80048; 80076; 80307; 80320; 80329; 81003; 81015; 82150; 82550; 82553; 82805; 83605; 83690; 84100; 84145; 84478; 84484; 85025; 85610; 85730; 87040; 87086; 87088; 93005; 96365; 96366; 96367; 96372; 96375; 99291; 99292; J0132; J0610; J1650; J2543; J2550; J3411; J7030; J7050; J7799; U0003

== ENCOUNTER 2023-05-07 13:42 | Emergency (ER) | payer SELFPAY ==
--- OUTSIDE RECORDS SUMMARY | 2023-05-07 13:46 | XMS REPORT | Continuity of Care Document ---
:1980 Author Organization [facility] t Address [address] [facility]. [address] [place] [address] Care Team Providers Name Role Phone DIYA EPSTEIN Attending Clinician Unavailable DIYA EPSTEIN Admitting Clinician Unavailable Problems Condition Condition Condition Status Onset Resolution Last Treating Co mments Source Name Details Category Date Date Treatment Clinician Date Acute Acute Disease Active 2019-[address] [facility] liver 0[facility]21 [facility] MELINDA (acute MELINDA (acute Disease Active 2019-[address] kidney kidney 0-21 [facility] injury) injury) 00:00: Medical 00 [place] Acute Acute Disease Active 2019-[address] [facility] [address] metabolic metabolic 0-21 [facility] encephalop encephalop 00:00: Ks dical athy athy 00 Center Allergies, Adverse Reactions, Alerts Allergy Allergy Status Severity Reaction(s) Onset Inactive Treating Comm ents Source Name Type Date Date Clinician NO KNOWN Allergy Active [facility] Social History Social Habit Start Date Stop Date Quantity Comments Source Sex Assigned At [address] [facility] k[facility] 00:00:00 00:00:00 [facility] Medications Ordered Filled Start Stop Current Ordering Indication Dosage Frequency Signature Comments Components Source Medication Medication Date Date Medication? Clinician (SIG) Name Name diazePAM 2019-10 Yes 2mg Take [address] [facility] (VALIUM) 2 0-23 by mouth [facility] MG tablet 12:29: every 6 Medic al 29 (six) Center hours as needed for Anxiety. HYDROcodone 2019-10 Yes 1{tbl} Take [address] -acetaminop 0-01 tablet by Sony zepeda (NORCO 00:00: mouth 4 Medi anastacia 10-325) 00 (four) Center 10-325 mg times per tablet daily as needed for Pain. carisoprodo 2019-10 Yes 1{tbl} Q.5D Take [address] [facility] (SOMA) 0-01 tablet by [facility] 350 MG 00:00: mouth 2 Medical tablet 00 (two) Center times daily. Vital Signs Vital Name Observation Time Observation Value Comments Source HEIGHT 2020-08-14 02:00:00 193 cm WEIGHT 2020-08-14 02:00:00 153.5 kg HEIGHT 2020-08-14 02:00:00 193 cm WEIGHT 2020-08-14 02:00:00 153.5 kg Procedures This patient has no known procedures. Plan of Care Planned Activity Planned Date Details Comments Source Future Scheduled 2023-08-[address] [facility] Test 00:00:00 (procedure) [code = [facility] 77748024] Future Scheduled 2023-06-[address] [facility] Test 00:00:00 (#1) [code = [facility] Influenza Vaccine (#1)] Future Scheduled 2022-10-[address] [facility] Test 00:00:00 (12+) [code = [facility] DEPRESSION SCREENING (12+)] Future Scheduled 1999 DTAP/TDAP/TD VACCINES [facility] Test 00:00:00 (1 - Tdap) [code = Medical enter DTAP/TDAP/TD VACCINES (1 - Tdap)] Future Scheduled [address] [facility] 00:00[facility]00 [facility] (12+) [code = Tobacco Cessation Counseling and Screening (12+)] Future Scheduled 1981-06-04 COVID-19 VACCINE (#1) [facility] Test 00:00:00 [code = COVID-[address] VACCINE (#1)] Encounters Start End Encounter Admission Attending Care Care Encounter Source Date/Time Date/Time Type Type Clinicians Facility Department ID 2020-08-14 Inpatient ER [facility] [id number] [facility] 01:49:00 [facility] Med Results Test Description Test Time Test Comments Results Result Comments Source AFB CULTURE + SMEAR (NON-SPUTUM) 2020-09-30 08:44:00 Test Item Value Reference Range Interpretation Comme nts CULTURE (BEAKER) (test code = 1095) No acid-fast bacilli isolated i n 42 days AFB SMEAR (BEAKER) (test code = 994) No acid fast bacilli seen FUNGUS CULTURE + [id number] 09:51:00 Test Item Value Reference Range Interpretation Comments CULTURE (BEAKER) (test No fungus isolated in code = 1095) 28 days FUNGUS SMEAR (BEAKER) No fungal elements seen (test code = 1406) ANTI-MITOCHONDRIAL AB, REFLEX TO [id number] 12:06:00 Test Item Value Reference Range Interpretation Comments SCAN RESULT (test code = 1537867) MISCELLANEOUS LAB [id number] 08:56:00 Test Item Value Reference Range Interpretation Comments SCAN RESULT (test code = 6956203) See Scanned ReportTISSUE [id number] 12:18:00Surgical Pathology Report Case: [id number] Authorizing Provider: Diya Epstein, Collected: 08/15/2020 05:11 PM Ordering Location: [place] [address] ICU Received: 08/16/2020 08:35 AM Pathologist: Melanie Abreu MD Specimen: Foot, Right A. SKIN, RIGHT FOOT, PUNCH BIOPSY: - LIVEDOID VASCULOPATHY Signing Pathologist Direct Phone Line: [phone] signed by Melanie Abreu MD on 08/21/2020 at 12:18 PMPreliminary result electronically signed by Melanie Abreu MD on 08/19/2020 at 3:32PMPreliminary result electronically signed by Nino Guerrero MD on 08/17/2020 at 11:42 [id number] liver injury with new onset retiform purpura on the bilateral feet. Differential diagnosis: Vasculitis versus vasculopathy versus septic emboliA. Right footA. Received in formalin labeled with the patient's name, medical record number and "right foot" is a 0.5 x 0.5 cm ya- white punch biopsy excised to a depth of 0.4 cm. The epidermis is ya-white and does not display any evident lesions. The specimen is inked blue, bisected and submitted entirely in cassette A1. DLR/pl Sections show skin withfocal fibrin thrombi within small dermal vessels.HERPES VIRUS ANTIBODY, [id number] 09:24:00 Test Item Value Reference Range Interpretation Comments HERPES VIRUS IGM (BEAKER) (test code Negative = 1808) TEST PERFORMED BY [employer]T SPOT [id number] 11:55:00 Test Item Value Reference Range Interpretation Comments T-SPOT TB (BEAKER) (test code = Negative 1683) NEG CONTROL SPOT COUNT (BEAKER) 0 (test code = 1684) PANEL A SPOT (BEAKER) (test code = 0 1685) PANEL B SPOT (BEAKER) (test code = 1 1686) POS CONTROL SPOT CT (BEAKER) (test 0 code = 1687) SCAN RESULT (test code = 2851385) BLOOD [id number] 04:00:00 Test Item Value Reference Range Interpretation Comments CULTURE (BEAKER) (test No growth in 5 days code = 1095) BLOOD [id number] 04:00:00 Test Item Value Reference Range Interpretation Comments CULTURE (BEAKER) (test No growth in 5 days code = 1095) SURGICALLY OBTAINED CULTURE + GRAM [id number] 11:36:00 Test Item Value Reference Range Interpretation Comments CULTURE (BEAKER) (test No growth code = 1095) GRAM STAIN RESULT No White blood cells (BEAKER) (test code = seen 1123) GRAM STAIN RESULT No organisms seen (BEAKER) (test code = 467087) Culture in progressPOCT-GLUCOSE [id number] 12:01:00 Test Item Value Reference Range Interpretation Comments POC-GLUCOSE METER 93 mg/dL 70-110 : TESTED A T [facility] 6720 (BEAKER) (test [facility] = [facility], 1538) [address]: Rougher Operator/Techni aggie ID = [id number] for ANALISA HOSKINS HIRAL POCT-GLUCOSE [id number] 07:56:00 Test Item Value Reference Range Interpretation Comments POC-GLUCOSE METER 83 mg/dL 70-110 : TESTED A T [facility] 6720 (BEAKER) (test code = [facility], 1538) [address]: Rougher Operator/Techni aggie ID = [id number] for HOMERO GILLIS ALPHA FETOPROTEIN (AFP), TUMOR [id number] 07:17:00 Test Item Value Reference Range Interpretation Comments ALPHA-FETOPROTEIN (BEAKER) (test 4.0 ng/mL <10.0 code = 1094) Rougher Operator ID - MAURA [id number] 06:31:00 Test Item Value Reference Range Interpretation Comments FERRITIN (BEAKER) (test code = 2387.68 ng/mL 5.00-275.00 H 361) Rougher Operator ID - EDASIOperator ID - EDASICOMPREHENSIVE METABOLIC [id number] 05:02:00 Test Item Value Reference Range Interpretation Comments TOTAL PROTEIN 5.8 gm/dL 6.0-8.3 L (BEAKER) (test code = 770) ALBUMIN (BEAKER) 3.0 g/dL 3.5-5.0 L (test code = 1145) ALKALINE PHOSPHATASE 83 U/L 40-150 (BEAKER) (test code = 346) BILIRUBIN TOTAL 1.5 mg/dL 0.2-1.2 H (BEAKER) (test code = 377) SODIUM (BEAKER) (test 141 meq/L 136-145 code = 381) POTASSIUM (BEAKER) 3.2 meq/L 3.5-5.1 L (test code = 379) CHLORIDE (BEAKER) 101 meq/L 98-107 (test code = 382) CO2 (BEAKER) (test 33 meq/L 22-29 H code = 355) BLOOD UREA NITROGEN 10 mg/dL 7-21 (BEAKER) (test code = 354) CREATININE (BEAKER) 0.75 mg/dL 0.57-1.25 (test code = 358) GLUCOSE RANDOM 99 mg/dL 70-105 (BEAKER) (test code = 652) CALCIUM (BEAKER) 8.7 mg/dL 8.4-10.2 (test code = 697) AST (SGOT) (BEAKER) 490 U/L 5-34 H (test code = 353) ALT (SGPT) (BEAKER) 1558 U/L 6-55 H (test code = 347) EGFR (BEAKER) (test 116 ESTIMATE D GFR IS code = 1092) mL/min/1.73 sq NOT ACCURA TE m CREATININE CLEARANCE IN PREDICTING GLOMERULAR FILTRATION RATE . ESTIMATED GFR I S NOT APPLICABLE FOR DIALYSIS PATIEN TS. Rougher Operator ID - [id number] 05:02:00 Test Item Value Reference Range Interpretation Comments PHOSPHORUS (BEAKER) (test code = 1.7 mg/dL 2.3-4.7 L 604) Rougher Operator ID - EDASICREATINE KINASE (CK)2020-08-16 05:02:00 Test Item Value Reference Range Interpretation Comments CREATINE KINASE TOTAL (BEAKER) (test 100 U/L 29-200 code = 380) Rougher Operator ID - EDASIPROTHROMBIN [id number] 04:35:00 Test Item Value Reference Range Interpretation Comments PROTIME (BEAKER) (test code = 17.5 seconds 11.9-14.2 H 759) INR (BEAKER) (test code = 370) 1.48 <=5.90 Effective 03/22/2019: PT Reference Range ChangeNew: 11.9-14.2 Previous: 11.7- 14.7RECOMMENDED COUMADIN/WARFARIN INR THERAPY RANGESSTANDARD DOSE: 2.0-3.0 Includes: PROPHYLAXIS for venous thrombosis, systemic embolization; TREATMENT for venous thrombosis and/or pulmonary embolus.HIGH RISK: Target INR is 2.5-3.5 for patients wiht mechanical heart valves.CBC W/PLT COUNT & AUTO [id number] 04:17:00 Test Item Value Reference Range Interpretation Comments WHITE BLOOD CELL COUNT (BEAKER) 6.8 K/ L 3.5-10.5 (test code = 775) RED BLOOD CELL COUNT (BEAKER) 4.47 M/ L 4.63-6.08 L (test code = 761) HEMOGLOBIN (BEAKER) (test code = 14.8 GM/DL 13.7-17.5 410) HEMATOCRIT (BEAKER) (test code = 45.0 % 40.1-51.0 411) MEAN CORPUSCULAR VOLUME (BEAKER) 100.7 fL 79.0-92.2 H (test code = 753) MEAN CORPUSCULAR HEMOGLOBIN 33.1 pg 25.7-32.2 H (BEAKER) (test code = 751) MEAN CORPUSCULAR HEMOGLOBIN CONC 32.9 GM/DL 32.3-36.5 (BEAKER) (test code = 752) RED CELL DISTRIBUTION WIDTH 14.7 % 11.6-14.4 H (BEAKER) (test code = 412) PLATELET COUNT (BEAKER) (test code 95 K/CU MM 150-450 L = 756) MEAN PLATELET VOLUME (BEAKER) 10.2 fL 9.4-12.4 (test code = 754) NUCLEATED RED BLOOD CELLS (BEAKER) 0 /100 WBC 0-0 (test code = 413) NEUTROPHILS RELATIVE PERCENT 71 % (BEAKER) (test code = 429) LYMPHOCYTES RELATIVE PERCENT 15 % (BEAKER) (test code = 430) MONOCYTES RELATIVE PERCENT 12 % (BEAKER) (test code = 431) EOSINOPHILS RELATIVE PERCENT 2 % (BEAKER) (test code = 432) BASOPHILS RELATIVE PERCENT 0 % (BEAKER) (test code = 437) NEUTROPHILS ABSOLUTE COUNT 4.78 K/ L 1.78-5.38 (BEAKER) (test code = 670) LYMPHOCYTES ABSOLUTE COUNT 1.00 K/ L 1.32-3.57 L (BEAKER) (test code = 414) MONOCYTES ABSOLUTE COUNT (BEAKER) 0.80 K/ L 0.30-0.82 (test code = 415) EOSINOPHILS ABSOLUTE COUNT 0.13 K/ L 0.04-0.54 (BEAKER) (test code = 416) BASOPHILS ABSOLUTE COUNT (BEAKER) 0.02 K/ L 0.01-0.08 (test code = 417) IMMATURE GRANULOCYTES-RELATIVE 1 % 0-1 PERCENT (BEAKER) (test code = 2801) SPIN/CONCENTRATION [id number] 02:06:00 Test Item Value Reference Range Interpretation Comments CONCENTRATION CHARGED (BEAKER) (test Done code = 2657) [id number] 18:49:00 Test Item Value Reference Range Interpretation Comments T4 TOTAL (BEAKER) (test code = 895) 6.8 ug/dL 4.9-11.7 Rougher Operator ID - BSCOMPREHENSIVE METABOLIC [id number] 15:41:00 Test Item Value Reference Range Interpretation Comments TOTAL PROTEIN 5.5 gm/dL 6.0-8.3 L (BEAKER) (test code = 770) ALBUMIN (BEAKER) 2.9 g/dL 3.5-5.0 L (test code = 1145) ALKALINE PHOSPHATASE 79 U/L 40-150 (BEAKER) (test code = 346) BILIRUBIN TOTAL 1.7 mg/dL 0.2-1.2 H (BEAKER) (test code = 377) SODIUM (BEAKER) (test 142 meq/L 136-145 code = 381) POTASSIUM (BEAKER) 3.3 meq/L 3.5-5.1 L (test code = 379) CHLORIDE (BEAKER) 100 meq/L 98-107 (test code = 382) CO2 (BEAKER) (test 36 meq/L 22-29 H code = 355) BLOOD UREA NITROGEN 10 mg/dL 7-21 (BEAKER) (test code = 354) CREATININE (BEAKER) 0.78 mg/dL 0.57-1.25 (test code = 358) GLUCOSE RANDOM 108 mg/dL 70-105 H (BEAKER) (test code = 652) CALCIUM (BEAKER) 8.1 mg/dL 8.4-10.2 L (test code = 697) AST (SGOT) (BEAKER) 650 U/L 5-34 H (test code = 353) ALT (SGPT) (BEAKER) 1832 U/L 6-55 H (test code = 347) EGFR (BEAKER) (test 111 ESTIMATE D GFR IS code = 1092) mL/min/1.73 sq NOT ACCURA TE m CREATININE CLEARANCE IN PREDICTING GLOMERULAR FILTRATION RATE . ESTIMATED GFR I S NOT APPLICABLE FOR DIALYSIS PATIEN TS. Rougher Operator ID - [id number] 15:41:00 Test Item Value Reference Range Interpretation Comments PHOSPHORUS (BEAKER) (test code = 2.2 mg/dL 2.3-4.7 L 604) Rougher Operator ID - BSPROTHROMBIN [id number] 15:19:00 Test Item Value Reference Range Interpretation Comments PROTIME (BEAKER) (test code = 18.8 seconds 11.9-14.2 H 759) INR (BEAKER) (test code = 370) 1.61 <=5.90 Effective 03/22/2019: PT Reference Range ChangeNew: 11.9-14.2 Previous: 11.7- 14.7RECOMMENDED COUMADIN/WARFARIN INR THERAPY RANGESSTANDARD DOSE: 2.0-3.0 Includes: PROPHYLAXIS for venous thrombosis, systemic embolization; TREATMENT for venous thrombosis and/or pulmonary embolus.HIGH RISK: Target INR is 2.5-3.5 for patients wiht mechanical heart valves.POCT-GLUCOSE [id number] 15:18:00 Test Item Value Reference Range Interpretation Comments POC-GLUCOSE METER 113 mg/dL 70-110 H : [facility] (test code = BERTNE April [facility], 1538) [address]: Rougher Operator/Techni aggie ID = [id number] for Nat Chery [id number] 12:13:00 Test Item Value Reference Range Interpretation Comments PHOSPHORUS (BEAKER) (test code = 2.5 mg/dL 2.3-4.7 604) Rougher Operator ID - AAHAMIDPOCT-GLUCOSE [id number] 12:07:00 Test Item Value Reference Range Interpretation Comments POC-GLUCOSE METER 90 mg/dL 70-110 : TESTED A T [facility] 6720 (BEAKER) (test code = [facility] April [facility], 1538) [address]: Rougher Operator/Techni aggie ID = [id number] for Nat Palmer [id number] 12:05:00 Test Item Value Reference Range Interpretation Comments MAGNESIUM (BEAKER) 1.3 mg/dL 1.6-2.6 L Specimen slightly (test code = 627) hemolyzed Rougher Operator ID - AAHAMIDBASIC METABOLIC [id number] 12:05:00 Test Item Value Reference Range Interpretation Comments SODIUM (BEAKER) 138 meq/L 136-145 (test code = 381) POTASSIUM (BEAKER) 3.4 meq/L 3.5-5.1 L Specimen slightly (test code = 379) hemolyzed CHLORIDE (BEAKER) 103 meq/L 98-107 (test code = 382) CO2 (BEAKER) (test 26 meq/L 22-29 code = 355) BLOOD UREA NITROGEN 13 mg/dL 7-21 (BEAKER) (test code = 354) CREATININE (BEAKER) 0.76 mg/dL 0.57-1.25 Specimen slightly (test code = 358) hemolyzed GLUCOSE RANDOM 89 mg/dL 70-105 (BEAKER) (test code = 652) CALCIUM (BEAKER) 8.0 mg/dL 8.4-10.2 L (test code = 697) EGFR (BEAKER) (test 114 mL/min/1.73 ESTIM ATED GFR IS code = 1092) sq m NOT ACCURATE CREATININE CLEARANCE IN PREDICTING GLOMERULAR FILTRATION RATE . ESTIMATED GFR I S NOT APPLICABLE FOR DIALYSIS PATIEN TS. Rougher Operator ID - AAHAMIDSpecimen slightly [id number] 10:59:00 Test Item Value Reference Range Interpretation Comments RPR SCREEN (BEAKER) (test code = Nonreactive Nonreactive 420) RAD, CHEST, 1 VIEW, NON [id number] 10:12:00Reason for exam:->pulmonary edema, pneumoniaShould this be performed at the bedside?->Yes [facility] 1980 Sex: MFINAL REPORT RAD, CHEST, 1 VIEW, NON DEPT INDICATION: pulmonary edema, pneumonia COMPARISON: Prior day's exam FINDINGS: Portable frontal view of the chest. IMPRESSION: Support Lines: None Lungs and pleura: No new consolidation or effusion No pneumothorax.Heart and mediastinum: Stable prominent cardiac shadow.Additional findings: None. Signed: JR Casey Robert MDReport Verified Date/Time: 08/15/2020 10:12:40 Reading Location: [facility] Radiology Reading Room POCT-GLUCOSE [id number] 09:09:00 Test Item Value Reference Range Interpretation Comments POC-GLUCOSE METER 130 mg/dL 70-110 H : TESTED A T [facility] 6720 (BEAKER) (test code = [place], 1538) [address]: Rougher Operator/Techni aggie ID = [id number] for Nat Chery SALICYLATE [id number] 08:33:00 Test Item Value Reference Range Interpretation Comments SALICYLATE LEVEL (BEAKER) (test code < mg/dL 15.0-30.0 L = 764) Therapeutic Range: 15.0-30.0 mg/dLToxic: >30.0 mg/dL Lethal: >70.0 mg/dL POCT-GLUCOSE [id number] 07:30:00 Test Item Value Reference Range Interpretation Comments POC-GLUCOSE METER 86 mg/dL 70-110 : TESTED A T [facility] 6720 (BEAKER) (test code = [place], 1538) [address]: Rougher Operator/Techni aggie ID = [id number] for Nat Palmer COMPREHENSIVE METABOLIC [id number] 06:51:00 Test Item Value Reference Range Interpretation Comments TOTAL PROTEIN 5.2 gm/dL 6.0-8.3 L (BEAKER) (test code = 770) ALBUMIN (BEAKER) 2.8 g/dL 3.5-5.0 L (test code = 1145) ALKALINE PHOSPHATASE 71 U/L 40-150 (BEAKER) (test code = 346) BILIRUBIN TOTAL 1.8 mg/dL 0.2-1.2 H (BEAKER) (test code = 377) SODIUM (BEAKER) (test 140 meq/L 136-145 code = 381) POTASSIUM (BEAKER) 3.4 meq/L 3.5-5.1 L (test code = 379) CHLORIDE (BEAKER) 104 meq/L 98-107 (test code = 382) CO2 (BEAKER) (test 27 meq/L 22-29 code = 355) BLOOD UREA NITROGEN 13 mg/dL 7-21 (BEAKER) (test code = 354) CREATININE (BEAKER) 0.80 mg/dL 0.57-1.25 (test code = 358) GLUCOSE RANDOM 91 mg/dL 70-105 (BEAKER) (test code = 652) CALCIUM (BEAKER) 8.2 mg/dL 8.4-10.2 L (test code = 697) AST (SGOT) (BEAKER) 790 U/L 5-34 H (test code = 353) ALT (SGPT) (BEAKER) 1914 U/L 6-55 H (test code = 347) EGFR (BEAKER) (test 108 ESTIMATE D GFR IS code = 1092) mL/min/1.73 sq NOT ACCURA TE m CREATININE CLEARANCE IN PREDICTING GLOMERULAR FILTRATION RATE . ESTIMATED GFR I S NOT APPLICABLE FOR DIALYSIS PATIEN TS. Rougher Operator ID - CRISTINA [id number] 06:51:00 Test Item Value Reference Range Interpretation Comments PHOSPHORUS (BEAKER) (test code = 3.0 mg/dL 2.3-4.7 604) Rougher Operator ID - CRISTINA MCREATINE KINASE (CK)2020-08-15 06:51:00 Test Item Value Reference Range Interpretation Comments CREATINE KINASE TOTAL (BEAKER) (test 215 U/L 29-200 H code = 380) Rougher Operator ID - CRISTINA MALPHA FETOPROTEIN (AFP), TUMOR [id number] 06:28:00 Test Item Value Reference Range Interpretation Comments ALPHA-FETOPROTEIN (BEAKER) (test 3.1 ng/mL <10.0 code = 1094) Rougher Operator ID - CRISTINA MHEPATITIS A ANTIBODY, [id number] 06:28:00 Test Item Value Reference Range Interpretation Comments HEPATITIS A IGG ANTIBODY (BEAKER) Nonreactive Nonreactive (test code = 2797) Rougher Operator ID - CRISTINA MCBC W/PLT COUNT & AUTO [id number] 06:27:00 Test Item Value Reference Range Interpretation Comments WHITE BLOOD CELL COUNT (BEAKER) 6.8 K/ L 3.5-10.5 (test code = 775) RED BLOOD CELL COUNT (BEAKER) 4.24 M/ L 4.63-6.08 L (test code = 761) HEMOGLOBIN (BEAKER) (test code = 13.8 GM/DL 13.7-17.5 410) HEMATOCRIT (BEAKER) (test code = 42.5 % 40.1-51.0 411) MEAN CORPUSCULAR VOLUME (BEAKER) 100.2 fL 79.0-92.2 H (test code = 753) MEAN CORPUSCULAR HEMOGLOBIN 32.5 pg 25.7-32.2 H (BEAKER) (test code = 751) MEAN CORPUSCULAR HEMOGLOBIN CONC 32.5 GM/DL 32.3-36.5 (BEAKER) (test code = 752) RED CELL DISTRIBUTION WIDTH 14.9 % 11.6-14.4 H (BEAKER) (test code = 412) PLATELET COUNT (BEAKER) (test code 72 K/CU MM 150-450 L = 756) MEAN PLATELET VOLUME (BEAKER) 9.8 fL 9.4-12.4 (test code = 754) NUCLEATED RED BLOOD CELLS (BEAKER) 1 /100 WBC 0-0 H (test code = 413) NEUTROPHILS RELATIVE PERCENT 75 % (BEAKER) (test code = 429) LYMPHOCYTES RELATIVE PERCENT 11 % (BEAKER) (test code = 430) MONOCYTES RELATIVE PERCENT 11 % (BEAKER) (test code = 431) EOSINOPHILS RELATIVE PERCENT 1 % (BEAKER) (test code = 432) BASOPHILS RELATIVE PERCENT 0 % (BEAKER) (test code = 437) NEUTROPHILS ABSOLUTE COUNT 5.14 K/ L 1.78-5.38 (BEAKER) (test code = 670) LYMPHOCYTES ABSOLUTE COUNT 0.75 K/ L 1.32-3.57 L (BEAKER) (test code = 414) MONOCYTES ABSOLUTE COUNT (BEAKER) 0.78 K/ L 0.30-0.82 (test code = 415) EOSINOPHILS ABSOLUTE COUNT 0.06 K/ L 0.04-0.54 (BEAKER) (test code = 416) BASOPHILS ABSOLUTE COUNT (BEAKER) 0.02 K/ L 0.01-0.08 (test code = 417) IMMATURE GRANULOCYTES-RELATIVE 1 % 0-1 PERCENT (BEAKER) (test code = 2801) PROTHROMBIN [id number] 06:02:00 Test Item Value Reference Range Interpretation Comments PROTIME (BEAKER) (test code = 19.5 seconds 11.9-14.2 H 759) INR (BEAKER) (test code = 370) 1.70 <=5.90 Effective 03/22/2019: PT Reference Range ChangeNew: 11.9-14.2 Previous: 11.7- 14.7RECOMMENDED COUMADIN/WARFARIN INR THERAPY RANGESSTANDARD DOSE: 2.0-3.0 Includes: PROPHYLAXIS for venous thrombosis, systemic embolization; TREATMENT for venous thrombosis and/or pulmonary embolus.HIGH RISK: Target INR is 2.5-3.5 for patients wiht mechanical heart valves.POCT-GLUCOSE [id number] 05:46:00 Test Item Value Reference Range Interpretation Comments POC-GLUCOSE METER 106 mg/dL 70-110 : TESTED A T [facility] 6720 (BEAKER) (test code = [place], 1538) [address]: Rougher Operator/Techni aggie ID = [id number] for Kathleen Harris POCT-GLUCOSE [id number] 04:17:00 Test Item Value Reference Range Interpretation Comments POC-GLUCOSE METER 81 mg/dL 70-110 : TESTED A T [facility] 6720 (BEAKER) (test code = [facility]) [address]: Rougher Operator/Techni aggie ID = [id number] for AINSLEY ORTIZ [id number] 00:19:00 Test Item Value Reference Range Interpretation Comments PHOSPHORUS (BEAKER) (test code = 2.2 mg/dL 2.3-4.7 L 604) Rougher Operator ID - PIAYA LPOCT-GLUCOSE [id number] 00:12:00 Test Item Value Reference Range Interpretation Comments POC-GLUCOSE METER 103 mg/dL 70-110 : TESTED A T [facility] 6720 (BEAKER) (test code = [facility]8) [address]: Rougher Operator/Techni aggie ID = [id number] for Kaylynn brice, Kathleen POCT-GLUCOSE [id number] 23:00:00 Test Item Value Reference Range Interpretation Comments POC-GLUCOSE METER 74 mg/dL 70-110 : TESTED A T [facility] 6720 (BEAKER) (test code = [facility], [facility]8) 82353: Rougher Operator/Techni aggie ID = [id number] for Chary es, Kathleen POCT-GLUCOSE [id number] 20:39:00 Test Item Value Reference Range Interpretation Comments POC-GLUCOSE METER 86 mg/dL 70-110 : TESTED A T [facility] 6720 (BEAKER) (test code = [facility], [facility]8) 82427: Rougher Operator/Techni aggie ID = [id number] for Chary es, Kathleen POCT-GLUCOSE [id number] 18:48:00 Test Item Value Reference Range Interpretation Comments POC-GLUCOSE METER 114 mg/dL 70-110 H : TESTED A T [facility] 6720 (BEAKER) (test code = [facility], [facility]8) 52031: Rougher Operator/Techni aggie ID = [id number] for Wi lliams, Nat TROPONIN [id number] 17:44:00 Test Item Value Reference Range Interpretation Comments TROPONIN I (BEAKER) (test code = 0.71 ng/mL 0.00-0.03 [facility]) Troponin I (TnI) levels must be interpreted in the context of the presenting symptoms and the clinical findings. Elevated TnI levels indicate myocardial damage, but are not specific for ischemic heart disease. Elevated TnI levels are seen in patients with other cardiac conditions (including myocarditis and congestive heart failure), and slight TnI elevations occur in patients with other conditions, including sepsis, renal failure, acidosis, acute neurological disease, and persistent tachyarrhythmia.Rougher Operator ID - BSHEPATITIS B CORE ANTIBODY, [id number] 17:24:00 Test Item Value Reference Range Interpretation Comments HEPATITIS B CORE TOTAL ANTIBODY Reactive Nonreactive A (BEAKER) (test code = 497) Rougher Operator ID - AWAIS CPOCT-GLUCOSE [id number] 17:08:00 Test Item Value Reference Range Interpretation Comments POC-GLUCOSE METER 212 mg/dL 70-110 H : TESTED A T [facility] 6720 (BEAKER) (test code = [facility], 1538) [address]: Rougher Operator/Techni aggie ID = [id number] for Wi richar, Nat POCT-GLUCOSE [id number] 15:40:00 Test Item Value Reference Range Interpretation Comments POC-GLUCOSE METER 131 mg/dL 70-110 H : TESTED A T [facility] 6720 (BEAKER) (test code = [facility], 1538) [address]24[address]: Rougher Operator/Techni aggie ID = [id number] for Wi lliams, Nat CYTOMEGALOVIRUS ANTIBODY, [id number] 14:31:00 Test Item Value Reference Range Interpretation Comments CYTOMEGALOVIRUS, IGG (BEAKER) Positive Negative, Equivocal A (test code = 3429) CMV IgG Result Interpretation: </= 0.8 Al Negative 0.9-1.0 Al Equivocal >/=1.1 Al PositiveCYTOMEGALOVIRUS ANTIBODY, [id number] 14:30:00 Test Item Value Reference Range Interpretation Comments CYTOMEGALOVIRUS IGM ANTIBODY Negative Negative, Equivocal (BEAKER) (test code = 3437) CMV IgM Result Interpretation: </= 0.8 Al Negative 0.9-1.0 Al Equivocal >/= 1.1 Al PositiveEBV ANTIBODY, [id number] 14:30:00 Test Item Value Reference Range Interpretation Comments LITTLE GONZALEZ VIRAL CAPSID Negative Negative, Equivocal ANTIGEN IGM (BEAKER) (test code = 3418) Little Gonzalez Viral Capsid Antigen IgM Result Interpretation: </= 0.8 Al Negative 0.9-1.0 Al Equivocal >/= 1.1 Al [id number] 13:41:00 Test Item Value Reference Range Interpretation Comments PHOSPHORUS (BEAKER) (test code = 0.9 mg/dL 2.3-4.7 LL 604) Rougher Operator ID - AWAIS CPOCT-GLUCOSE [id number] 13:39:00 Test Item Value Reference Range Interpretation Comments POC-GLUCOSE METER 146 mg/dL 70-110 H : TESTED A T [facility] 6720 (BEAKER) (test code = [place], 1538) [address]: Rougher Operator/Techni aggie ID = [id number] for Nat Chery COMPREHENSIVE METABOLIC [id number] 13:39:00 Test Item Value Reference Range Interpretation Comments TOTAL PROTEIN 5.2 gm/dL 6.0-8.3 L (BEAKER) (test code = 770) ALBUMIN (BEAKER) 2.9 g/dL 3.5-5.0 L (test code = 1145) ALKALINE PHOSPHATASE 71 U/L 40-150 (BEAKER) (test code = 346) BILIRUBIN TOTAL 1.9 mg/dL 0.2-1.2 H (BEAKER) (test code = 377) SODIUM (BEAKER) (test 141 meq/L 136-145 code = 381) POTASSIUM (BEAKER) 2.9 meq/L 3.5-5.1 L (test code = 379) CHLORIDE (BEAKER) 102 meq/L 98-107 (test code = 382) CO2 (BEAKER) (test 29 meq/L 22-29 code = 355) BLOOD UREA NITROGEN 25 mg/dL 7-21 H (BEAKER) (test code = 354) CREATININE (BEAKER) 1.03 mg/dL 0.57-1.25 (test code = 358) GLUCOSE RANDOM 144 mg/dL 70-105 H (BEAKER) (test code = 652) CALCIUM (BEAKER) 8.2 mg/dL 8.4-10.2 L (test code = 697) AST (SGOT) (BEAKER) 1478 U/L 5-34 H (test code = 353) ALT (SGPT) (BEAKER) 2578 U/L 6-55 H (test code = 347) EGFR (BEAKER) (test 80 mL/min/1.73 ESTIMA JACOB GFR IS code = 1092) sq m NOT ACCURATE CREATININE CLEARANCE IN PREDICTING GLOMERULAR FILTRATION RATE . ESTIMATED GFR I S NOT APPLICABLE FOR DIALYSIS PATIEN TS. Rougher Operator ID - AWAIS CCREATINE KINASE (CK)2020-08-14 13:37:00 Test Item Value Reference Range Interpretation Comments CREATINE KINASE TOTAL (JOSÉ LUISAKER) (test 436 U/L 29-200 H code = 380) Rougher Operator ID - AWAIS CPROTHROMBIN [id number] 13:30:00 Test Item Value Reference Range Interpretation Comments PROTIME (Cognitive SecurityAKER) (test code = 21.7 seconds 11.9-14.2 H 759) INR (Cognitive SecurityAKER) (test code = 370) 1.95 <=5.90 Effective 03/22/2019: PT Reference Range ChangeNew: 11.9-14.2 Previous: 11.7- 14.7RECOMMENDED COUMADIN/WARFARIN INR THERAPY RANGESSTANDARD DOSE: 2.0-3.0 Includes: PROPHYLAXIS for venous thrombosis, systemic embolization; TREATMENT for venous thrombosis and/or pulmonary embolus.HIGH RISK: Target INR is 2.5-3.5 for patients wiht mechanical heart valves.POCT-GLUCOSE [id number] 12:36:00 Test Item Value Reference Range Interpretation Comments POC-GLUCOSE METER 142 mg/dL 70-110 H : TESTED A T [facility] 6720 (ANPI) (test code = [place], 1538) [address]: Rougher Operator/Techni aggie ID = [id number] for Wi llia, Nat COMPLEMENT COMPONENT [id number] 12:36:00 Test Item Value Reference Range Interpretation Comments C4 COMPLEMENT (Cognitive SecurityAKER) (test code = < mg/dL 15-57 L 394) Rougher Operator ID - AWAIS CHEPATITIS B SURFACE [id number] 12:34:00 Test Item Value Reference Range Interpretation Comments HEPATITIS B SURFACE ANTIBODY 267.1 mIU/mL <8.0 H (Cognitive SecurityAKER) (test code = 647) Rougher Operator ID - AWAIS CALPHA FETOPROTEIN (AFP), TUMOR [id number] 12:34:00 Test Item Value Reference Range Interpretation Comments ALPHA-FETOPROTEIN (Cognitive SecurityAKER) (test 2.8 ng/mL <10.0 code = 1094) Rougher Operator ID - AWAIS CCOMPLEMENT COMPONENT [id number] 12:33:00 Test Item Value Reference Range Interpretation Comments C3 COMPLEMENT (RAJIV) (test code = 43 mg/dL 82-193 L 393) Rougher Operator ID - AWAIS CHEMOGLOBIN [id number] 11:58:00 Test Item Value Reference Range Interpretation Comments HEMOGLOBIN A1C (RAJIV) (test code = 5.3 % 4.3-6.1 368) Rougher Operator ID - [id number] ID - [id number]-COV2/RT-PCR ([facility]) 2020-08-14 11:27:00 Test Item Value Reference Range Interpretation Comments SARS-COV2/RT-PCR (test Negative Not Detected, Negative, code = 3152232) See external report for linked test SARS-COV-2 PERFORMING LAB [facility] SYED (test code = 3097780) Negative result for this test determines that SARS-CoV-2 RNA was not present in the specimen above the Limit of Detection (LOD). However, Negative results do not preclude SARS-CoV-2 infection and should not be used as the sole basis for treatment or patient management decisions. Negative results must be combined with clinical observations, patient history, and epidemiological information. A false negative result may occur if a specimen is improperly collected, transported or handled. A false negative result should be considered if patient's recent exposures or clinical presentation indicate that COVID-19 (SARS-CoV-2) is likely and diagnostic tests for other causes of illness are negative. Re-testing should be considered in cases of suspected false negatives.The limit of detection for this assay is 800 copies/mL.This SARS CoV-2 test is a real-time RT-PCR test intended for the qualitative detection of nucleic acid from SARS-CoV-2 in a nasopharyngeal swab specimen collected from individuals suspected of COVID-19 by their healthcare provider.This test has not been Food and Drug Administration (FDA) cleared or approved. This is a modified version of an approved Emergency Use Authorization (EUA) and is in the process of review by the FDA. Once authorized by the FDA, the issued EUA will be effective until the declaration that circumstances exist justifying the authorization of the emergency use ofin vitro diagnostic tests for detection and/or diagnosis of COVID-19 is terminated under Section 564(b)(2) of the Act or the EUA is revoked under Section 564(g) of the Act.Fact Sheet for Healthcare Prov iders:https://www.[employer]/sites/default/files/product/documents/Fact_Sheet_HC _Eifkfavel_Jgbz_MBHE-QaP-6.pdfFact Sheet for Healthcare Patients:https://www.[employer]/sites/default/files/product/docume nts/Lexv_Jzqdi_Ltorkdop_Xcga_MVND-WkC-3.pdfPerforming Laboratory:[facility] [place], [place] [address]KFNDNP 5 ACTIVITY (BLEEDING RISK)2020-08-14 11:24:00 Test Item Value Reference Range Interpretation Comments FACTOR V ACTIVITY (BEAKER) (test code 43.0 % 60.0-150.0 L = 665) RAD, SHOULDER, COMPLETE (MIN 2 VIEWS), [id number] 11:19:00Reason for exam:- >shoulder pain s/p pain [facility] 1980 Sex: MFINAL REPORT RAD, SHOULDER, COMPLETE (MIN 2 VIEWS), RIGHT COMPARISON: None INDICATION: shoulder pain s/p pain FINDINGS: AP views in internal and external rotation and an axillary "Y" view of the right shoulder. Osseous structures: No fracture.Joint spaces: Intact without malalignment. No s ignificant degenerative changes.Soft tissues: Unremarkable IMPRESSION: No acute abnormality of the right shoulder. Signed: JR Casey Robert MDReport Verified Date/Time: 08/14/2020 11:19:31 Reading Location: [facility]iology Reading Room POCT-GLUCOSE [id number] 11:09:00 Test Item Value Reference Range Interpretation Comments POC-GLUCOSE METER 90 mg/dL 70-110 : TESTED A T [facility] 6720 (BEAKER) (test code = [facility], 1538) [address]: Rougher Operator/Techni aggie ID = [id number] for Step toe, Ariana POCT-GLUCOSE [id number] 11:09:00 Test Item Value Reference Range Interpretation Comments POC-GLUCOSE METER 106 mg/dL 70-110 : TESTED A T [facility] 6720 ([facility]) (test code = [facility], 1538) 51850: Rougher Operator/Techni aggie ID = [id number] for Wi lliams, Nat POCT-GLUCOSE [id number] 11:09:00 Test Item Value Reference Range Interpretation Comments POC-GLUCOSE METER 107 mg/dL 70-110 : TESTED A T [facility] 6720 (BEAKER) (test code = [facility], 1538) 844[address]: Rougher Operator/Techni aggie ID = [id number] for Wi lliams, Nat TROPONIN [id number] 10:59:00 Test Item Value Reference Range Interpretation Comments TROPONIN I (BEAKER) (test code = 1.16 ng/mL 0.00-0.03 [facility]) Troponin I (TnI) levels must be interpreted in the context of the presenting symptoms and the clinical findings. Elevated TnI levels indicate myocardial damage, but are not specific for ischemic heart disease. Elevated TnI levels are seen in patients with other cardiac conditions (including myocarditis and congestive heart failure), and slight TnI elevations occur in patients with other conditions, including sepsis, renal failure, acidosis, acute neurological disease, and persistent tachyarrhythmia.Rougher Operator ID - AWAIS [id number] 10:52:00 Test Item Value Reference Range Interpretation Comments LIPASE (BEAKER) (test code = 749) 146 U/L 8-78 H Rougher Operator ID - AWAIS [id number] 10:50:00 Test Item Value Reference Range Interpretation Comments ALPHA-1 ANTITRYPSIN (BEAKER) 258.60 mg/dL 90.00-200.00 H (test code = 502) Rougher Operator ID - AWAIS CVITAMIN B12 AND [id number] 10:48:00 Test Item Value Reference Range Interpretation Comments VITAMIN B12 (BEAKER) (test code = > pg/mL 213-816 H 774) FOLATE (BEAKER) (test code = 362) 10.00 ng/mL >=7.00 Rougher Operator ID - AWAIS [id number] 10:48:00 Test Item Value Reference Range Interpretation Comments THYROID STIMULATING HORMONE 0.055 uIU/mL 0.350-4.940 L (BEAKER) (test code = 772) Rougher Operator ID - AWAIS [id number] 10:48:00 Test Item Value Reference Range Interpretation Comments FERRITIN (BEAKER) (test code = 39986.99 ng/mL 5.00-275.00 H 361) Rougher Operator ID - AWAIS COperator ID - AWAIS CCALCIUM, [id number] 10:27:00 Test Item Value Reference Range Interpretation Comments CALCIUM IONIZED (BEAKER) (test 1.17 mmol/L 1.12-1.27 code = 698) PH, BLOOD (BEAKER) (test code = 7.39 1810) RAPID DRUG SCREEN, [id number] 10:24:00 Test Item Value Reference Range Interpretation Comments BARBITURATE URINE (BEAKER) (test Negative Negative code = 725) BENZODIAZEPINE SCREEN URINE (BEAKER) Positive Negative A (test code = 726) COCAINE (METAB.) SCREEN (BEAKER) Negative Negative (test code = 1164) METHADONE SCREEN (BEAKER) (test code Negative Negative = 1436) OPIATE SCREEN URINE (BEAKER) (test Positive Negative A code = 734) CANNABINOID SCREEN URINE (BEAKER) Negative Negative (test code = 727) AMPH/METHAMPH SCREEN (BEAKER) (test Negative Negative code = 1438) PHENCYCLIDINE SCREEN URINE (BEAKER) Negative Negative (test code = 608) PH UA (BEAKER) (test code = 467) 5.5 5.0-8.0 DRUG CUTOFF CONC.Cocaine 300 ng/mL Cannabinoid 50 ng/mLBenzodiazepine 200 ng/mLBarbiturate 200 ng/mLPhencyclidine 25 ng/mLOpiate 300 ng/mLMethadone 300 ng/mLAmphetamine/ 1000 ng/mL MethamphetamineThis assay provides an unconfirmed qualitative test result for the clinical management of patients in emergency situations. Chain of custody not maintained. Some dwfb-cie-dwbyyaq medications, as well as adulterants, may cause inaccurate results. Clinical correlation should be applied. A more comprehensive drug screen or confirmation of a detected drug may be performed upon request.Rougher Operator ID - AWAIS CURINALYSIS W/ [id number] 10:24:00 Test Item Value Reference Range Interpretation Comments COLOR (BEAKER) (test code = 470) Yellow CLARITY (BEAKER) (test code = 469) Clear SPECIFIC GRAVITY UA (BEAKER) (test 1.016 1.001-1.035 code = 468) PH UA (BEAKER) (test code = 467) 5.5 5.0-8.0 PROTEIN UA (BEAKER) (test code = 10 mg/dL Negative A 464) GLUCOSE UA (BEAKER) (test code = Negative Negative 365) KETONES UA (BEAKER) (test code = 10 mg/dL Negative A 371) BILIRUBIN UA (BEAKER) (test code = Negative Negative 462) BLOOD UA (BEAKER) (test code = 461) Trace Negative A NITRITE UA (BEAKER) (test code = Negative Negative 465) LEUKOCYTE ESTERASE UA (BEAKER) Negative Negative (test code = 466) UROBILINOGEN UA (BEAKER) (test code 0.2 mg/dL 0.2-1.0 = 463) RBC UA (BEAKER) (test code = 519) 1 /HPF WBC UA (BEAKER) (test code = 520) 1 /HPF MUCUS (BEAKER) (test code = 1574) Rare SQUAMOUS EPITHELIAL (BEAKER) (test < /HPF code = 516) SOURCE(BEAKER) (test code = 2795) Rougher Operator ID - [auto]Rougher Operator ID - [auto]Rougher Operator ID - techIRON, TIBC, % SAT. (WITHOUT FERRITIN)2020-08-14 09:50:00 Test Item Value Reference Range Interpretation Comments IRON (BEAKER) (test code = 547) 47.0 ug/dL 40.0-160.0 TOTAL IRON BINDING CAPACITY 255 ug/dL 250-450 (BEAKER) (test code = 769) IRON % SATURATION (2) (BEAKER) 18 % 20-55 L (test code = 2590) Rougher Operator ID - AWAIS CLIPID [id number] 09:41:00 Test Item Value Reference Range Interpretation Comments TRIGLYCERIDES (BEAKER) (test code = 133 mg/dL 540) CHOLESTEROL (BEAKER) (test code = 90 mg/dL 631) HDL CHOLESTEROL (BEAKER) (test code 14 mg/dL = 976) LDL CHOLESTEROL CALCULATED (BEAKER) 49 mg/dL (test code = 633) Triglyceride Reference Range: Low Risk <150 Borderline 150-199 High Risk 200- 499 Very High Risk >=500Cholesterol Reference Range: Low Risk <200 Borderline 200-239 High Risk >240HDL Cholesterol Reference Range: Low Risk >=60 High Risk <40LDL Cholesterol Reference Range: Optimal <100 Near Optimal 100-129 Borderline 130-159 High 160-189 Very High >=190 Rougher Operator ID - AWAIS CGAMMA GLUTAMYL TRANSFERASE (GGT)2020-08-14 09:41:00 Test Item Value Reference Range Interpretation Comments GAMMA GLUTAMYL TRANSFERASE (BEAKER) 499 U/L 9-64 H (test code = 364) Rougher Operator ID - AWAIS CANTI-NUCLEAR ANTIBODY (BUDDY)2020-08-14 09:04:00 Test Item Value Reference Range Interpretation Comments ANTI-NUCLEAR ANTIBODY (BUDDY) (BEAKER) Positive Negative A (test code = 418) Test performed by IFA method.BUDYD TITER AND [id number] 09:04:00 Test Item Value Reference Range Interpretation Comments BUDDY TITER (BEAKER) (test code = :40 1541) BUDDY PATTERN (BEAKER) (test code = Speckled 1781) POCT-GLUCOSE [id number] 08:24:00 Test Item Value Reference Range Interpretation Comments POC-GLUCOSE METER 92 mg/dL 70-110 : [facility] ([facility]ER[facility] (test code = [place], 1538) [address]: Rougher Operator/Techni aggie ID = [id number] for FLAVIA LOU STACEY TROPONIN [id number] 06:39:00 Test Item Value Reference Range Interpretation Comments TROPONIN I (BEAKER) (test code = 1.34 ng/mL 0.00-0.03 397) Troponin I (TnI) levels must be interpreted in the context of the presenting symptoms and the clinical findings. Elevated TnI levels indicate myocardial damage, but are not specific for ischemic heart disease. Elevated TnI levels are seen in patients with other cardiac conditions (including myocarditis and congestive heart failure), and slight TnI elevations occur in patients with other conditions, including sepsis, renal failure, acidosis, acute neurological disease, and persistent tachyarrhythmia.Rougher Operator ID - MAURA MARIBETH/S, ABDOMINAL, [id number] 06:00:00W/ doppler- assess for PV thombrosisReason for exam:- >acute liver failureReason for exam:->w/ dopplerShould this be performed at the bedside?->Yes [facility] 1980 Sex: MFINAL REPORT History: Acute liver failure Abdominal ultrasound dated 08/14/2020 Comparison: None Comment: Real-time transabdominal ultrasound of the abdomen was performed. The examination is limited by patient body habitus. Liver: 21.8 cm , enlarged. Elevated parenchymal echogenicity suggesting steatosis. No focal lesions. Gallbladder: No gallstones. No gallbladder wall thickening. No perocholecystic fluid.. No sonographic Almeida's sign. Biliary tree: No intrahepatic ductal dilatation. CBD: 5 mm. Spleen: Splenomegaly, measuring 14.5 cm. Pancreas: Unremarkable. Right kidney: 12.9 x 6.2 x 7.8 cm. Normal echogenicity.Left kidney: 13.5 x 7.2 x 6.5 cm. Normal echogenicity. No ascites is present in the abdomen. Real-time Mcintosh scale, color and spectral doppler ultrasound of the abdomen was performed to evaluate visceral blood flow. Main portal vein measures 0.9 cm in diameter. There is hepatopetal flow in the main portal vein with velocity 24.7 cm/sec. The right and left intrahepatic portal veins are patent with hepatopetal flow. The splenic vein is patent with appropriate flow. Proper hepatic artery, right hepatic artery, and left hepatic artery are patent with resistive indices 0.6, 0.5, and 0.5 respectively. IVC, Hepatic venous confluence, right HV, middle HV and left HV are patent with appropriate flow. The visualized abdominal aorta is normal in caliber. Impression: Hepatosplenomegaly. Ultrasound evidence of hepatic steatosis. Normal abdominal Doppler. Signed: Antonio Ludwig MDReport Verified Date/Time: 08/14/2020 06:00:39 HEPATITIS PANEL, [id number] 05:17:00 Test Item Value Reference Range Interpretation Comments HEPATITIS A IGM ANTIBODY (BEAKER) Nonreactive Nonreactive (test code = 498) HEPATITIS B CORE IGM ANTIBODY Nonreactive Nonreactive (BEAKER) (test code = 645) HEPATITIS C ANTIBODY (BEAKER) Nonreactive Nonreactive (test code = 367) HEPATITIS B SURFACE ANTIGEN (2) Nonreactive Nonreactive (BEAKER) (test code = 2585) Rougher Operator ID - PIAYA LHIV-1 ANTIGEN WITH HIV-1/2 [id number] 04:57:00 Test Item Value Reference Range Interpretation Comments HIV-1 ANTIGEN WITH HIV 1\\T\\2 Nonreactive Nonreactive ANTIBODY (2) (BEAKER) (test code = 2586) Rougher Operator ID - PIGURPREET LRAD, CHEST, 1 VIEW, NON [id number] 04:03:00Reason for exam:->FEVERShould this be performed at the bedside?->Yes [facility] : 1980 Sex: MFINAL REPORT RAD, CHEST, 1 VIEW, NON DEPT INDICATION: FEVER COMPARISON: None FINDINGS: Portable frontal view of the chest. IMPRESSION: Heart and mediastinal silhouette is magnified by technique. No focal lung consolidation, large pleural effusion or pneumothorax. Perihilar interstitial prominence likely mild vascular congestion versus pneumonitis. Intact osseous structures. Signed: Chavo Hutson MDReport Verified Date/Time: 08/14/2020 04:03:31 [id number] 03:14:00 Test Item Value Reference Range Interpretation Comments PHOSPHORUS (BEAKER) (test code = 1.1 mg/dL 2.3-4.7 LL 604) Rougher Operator ID - [id number] 03:14:00 Test Item Value Reference Range Interpretation Comments PROCALCITONIN (BEAKER) (test code 13.95 ng/mL <0.05 HH = 3036) SEPSIS RISK (ng/mL)Low: 0.05-0.50Intermediate: 0.51-2.00High: >=2.01 COMPREHENSIVE METABOLIC [id number] 02:56:00 Test Item Value Reference Range Interpretation Comments TOTAL PROTEIN 5.8 gm/dL 6.0-8.3 L (BEAKER) (test code = 770) ALBUMIN (BEAKER) 3.2 g/dL 3.5-5.0 L (test code = 1145) ALKALINE PHOSPHATASE 80 U/L 40-150 (BEAKER) (test code = 346) BILIRUBIN TOTAL 2.0 mg/dL 0.2-1.2 H (BEAKER) (test code = 377) SODIUM (BEAKER) (test 141 meq/L 136-145 code = 381) POTASSIUM (BEAKER) 4.3 meq/L 3.5-5.1 (test code = 379) CHLORIDE (BEAKER) 101 meq/L 98-107 (test code = 382) CO2 (BEAKER) (test 30 meq/L 22-29 H code = 355) BLOOD UREA NITROGEN 34 mg/dL 7-21 H (BEAKER) (test code = 354) CREATININE (BEAKER) 1.63 mg/dL 0.57-1.25 H (test code = 358) GLUCOSE RANDOM 98 mg/dL 70-105 (BEAKER) (test code = 652) CALCIUM (BEAKER) 8.4 mg/dL 8.4-10.2 (test code = 697) AST (SGOT) (BEAKER) 2300 U/L 5-34 H (test code = 353) ALT (SGPT) (BEAKER) 3323 U/L 6-55 H (test code = 347) EGFR (BEAKER) (test 47 mL/min/1.73 ESTIMA JACOB GFR IS code = 1092) sq m NOT ACCURATE CREATININE CLEARANCE IN PREDICTING GLOMERULAR FILTRATION RATE . ESTIMATED GFR I S NOT APPLICABLE FOR DIALYSIS PATIEN TS. Rougher Operator ID - [id number] 02:53:00 Test Item Value Reference Range Interpretation Comments MAGNESIUM (BEAKER) (test code = 1.9 mg/dL 1.6-2.6 627) Rougher Operator ID - EDASICREATINE KINASE (CK)2020-08-14 02:53:00 Test Item Value Reference Range Interpretation Comments CREATINE KINASE TOTAL (BEAKER) (test 741 U/L 29-200 H code = 380) Rougher Operator ID - EDASIACETAMINOPHEN [id number] 02:53:00 Test Item Value Reference Range Interpretation Comments ACETAMINOPHEN LEVEL (BEAKER) (test < ug/mL 10.0-30.0 L code = 344) Therapeutic Range: 10.0-30.0 g/mLToxic Levels: >200.0 g/mLOperator ID - EDASI [id number] 02:50:00 Test Item Value Reference Range Interpretation Comments ETHANOL (BEAKER) (test code = 400) < mg/dL <=10 Rougher Operator ID - [id number] 02:47:00 Test Item Value Reference Range Interpretation Comments AMMONIA (BEAKER) (test code = 348) 91 mol/L 18-72 H Rougher Operator ID - EDASICBC W/PLT COUNT & AUTO [id number] 02:47:00 Test Item Value Reference Range Interpretation Comments WHITE BLOOD CELL COUNT (BEAKER) 10.1 K/ L 3.5-10.5 (test code = 775) RED BLOOD CELL COUNT (BEAKER) 4.37 M/ L 4.63-6.08 L (test code = 761) HEMOGLOBIN (BEAKER) (test code = 14.6 GM/DL 13.7-17.5 410) HEMATOCRIT (BEAKER) (test code = 44.7 % 40.1-51.0 411) MEAN CORPUSCULAR VOLUME (BEAKER) 102.3 fL 79.0-92.2 H (test code = 753) MEAN CORPUSCULAR HEMOGLOBIN 33.4 pg 25.7-32.2 H (BEAKER) (test code = 751) MEAN CORPUSCULAR HEMOGLOBIN CONC 32.7 GM/DL 32.3-36.5 (BEAKER) (test code = 752) RED CELL DISTRIBUTION WIDTH 14.4 % 11.6-14.4 (BEAKER) (test code = 412) PLATELET COUNT (BEAKER) (test code 68 K/CU MM 150-450 L = 756) MEAN PLATELET VOLUME (BEAKER) 10.9 fL 9.4-12.4 (test code = 754) NUCLEATED RED BLOOD CELLS (BEAKER) 2 /100 WBC 0-0 H (test code = 413) NEUTROPHILS RELATIVE PERCENT 78 % (BEAKER) (test code = 429) LYMPHOCYTES RELATIVE PERCENT 9 % (BEAKER) (test code = 430) MONOCYTES RELATIVE PERCENT 12 % (BEAKER) (test code = 431) EOSINOPHILS RELATIVE PERCENT 0 % (BEAKER) (test code = 432) BASOPHILS RELATIVE PERCENT 0 % (BEAKER) (test code = 437) NEUTROPHILS ABSOLUTE COUNT 7.86 K/ L 1.78-5.38 H (BEAKER) (test code = 670) LYMPHOCYTES ABSOLUTE COUNT 0.90 K/ L 1.32-3.57 L (BEAKER) (test code = 414) MONOCYTES ABSOLUTE COUNT (BEAKER) 1.18 K/ L 0.30-0.82 H (test code = 415) EOSINOPHILS ABSOLUTE COUNT 0.00 K/ L 0.04-0.54 L (BEAKER) (test code = 416) BASOPHILS ABSOLUTE COUNT (BEAKER) 0.02 K/ L 0.01-0.08 (test code = 417) IMMATURE GRANULOCYTES-RELATIVE 1 % 0-1 PERCENT (BEAKER) (test code = 2801) [id number] 02:42:00 Test Item Value Reference Range Interpretation Comments FIBRINOGEN LEVEL (BEAKER) (test 233 mg/dl 225-434 code = 658) [id number] 02:42:00 Test Item Value Reference Range Interpretation Comments PROTIME (BEAKER) (test code = 23.8 seconds 11.9-14.2 H 759) INR (BEAKER) (test code = 370) 2.19 <=5.90 PARTIAL THROMBOPLASTIN TIME 30.3 seconds 22.5-36.0 (BEAKER) (test code = 760) Effective 03/22/2019: PT Reference Range ChangeNew: 11.9-14.2 Previous: 11.7- 14.7RECOMMENDED COUMADIN/WARFARIN INR THERAPY RANGESSTANDARD DOSE: 2.0-3.0 Includes: PROPHYLAXIS for venous thrombosis, systemic embolization; TREATMENT for venous thrombosis and/or pulmonary embolus.HIGH RISK: Target INR is 2.5-3.5 for patients wiht mechanical heart valves.POCT-GLUCOSE [id number] 02:38:00 Test Item Value Reference Range Interpretation Comments POC-GLUCOSE METER 104 mg/dL 70-110 : TESTED A T [facility] 6720 (BEAKER) (test code = [facility], 1538) [address]: Rougher Operator/Techni aggie ID = [id number] for Se velez, Bright BLOOD GAS, [id number] 02:35:00 Test Item Value Reference Range Interpretation Comments PH VENOUS (BEAKER) (test code = 7.39 7.32-7.42 701) PCO2 VENOUS (BEAKER) (test code = 53 mm Hg 41-51 H 755) PO2 VENOUS (BEAKER) (test code = 33 mm Hg 25-40 702) O2 SATURATION VENOUS (BEAKER) 62.1 % 40.0-70.0 (test code = 703) HCO3 VENOUS (BEAKER) (test code = 31 mmol/L 21-29 H 705) BASE EXCESS VENOUS (BEAKER) (test 4.5 mmol/L -2.0-3.0 H code = 704) PATIENT TEMPERATURE (BEAKER) (test 37.0 code = 1818) LACTIC ACID, [id number] 02:32:00 Test Item Value Reference Range Interpretation Comments LACTATE BLOOD VENOUS (2) (BEAKER) 1.81 mmol/L 0.50-2.20 (test code = 2872) Rougher Operator ID - [id number]-PCR ([facility])2020-04-30 21:15:00 Test Item Value Reference Range Interpretation Comments SARS-COV2/RT-PCR (test code = Negative Not Detected, Negative [id number]) SARS-COV-2 PERFORMING LAB [facility] (test code = 7713083) Negative result for this test determines that SARS-CoV-2 RNA was not present in the specimen above the Limit of Detection (LOD). However, Negative results do not preclude SARS-CoV-2 infection and should not be used as the sole basis for treatment or patient management decisions. Negative results must be combined with clinical observations, patient history, and epidemiological information. A false negative result may occur if a specimen is improperly collected, transported or handled. A false negative result should be considered if patient's recent exposures or clinical presentation indicate that COVID-19 (SARS-CoV-2) is likely and diagnostic tests for other causes of illness are negative. Re-testing should be considered in cases of suspected false negatives.The limit of detection for this assay is 800 copies/mL.This SARS CoV-2 test is a real-time RT-PCR test intended for the qualitative detection of nucleic acid from SARS-CoV-2 in a nasopharyngeal swab specimen collected from individuals suspected of COVID-19 by their healthcare provider.This test has not been Food and Drug Administration (FDA) cleared or approved. This is a modified version of an approved Emergency Use Authorization (EUA) and is in the process of review by the FDA. Once authorized by the FDA, the issued EUA will be effective until the declaration that circumstances exist justifying the authorization of the emergency use ofin vitro diagnostic tests for detection and/or diagnosis of COVID-19 is terminated under Section 564(b)(2) of the Act or the EUA is revoked under Section 564(g) of the Act.Fact Sheet for Healthcare Prov iders:https://www.[employer]/sites/default/files/product/documents/Fact_Sheet_HC _Ymuktrczg_Zcun_MMTJ-XtE-3.pdfFact Sheet for Healthcare Patients:https://www.[employer]/sites/default/files/product/docume nts/Prah_Ytcto_Kcohfupc_Nocs_DXYE-ZcE-7.pdfPerforming Laboratory:[facility] [place] [address]
[2023-05-07 15:21] LABS: Albumin 3.4 g/dL (3.4-5.0); Bilirubin Direct 0.2 mg/dL (0-0.2); Bilirubin Indirect, Calculated 0.5 mg/dL (0.2-0.8); Bilirubin Total 0.7 mg/dL (0.2-1.0); Magnesium 2.1 mg/dL (1.6-2.4); Potassium 4.9 mEq/L (3.5-5.1); Protein, Total 7.7 g/dL (6.4-8.2); Troponin High Sensitivity 12.4 pg/mL (<58.9)
--- NOTE | 2023-05-07 15:33 | RAD REPORT ---
EXAM DESCRIPTION: RAD - Chest Single View - 05/07/2023 3:24 pm CLINICAL HISTORY: CHEST PAIN COMPARISON: Chest Single View dated 08/13/2020; Chest Single View dated 04/30/2020 FINDINGS: Lines: None. Lungs: No evidence of edema or pneumonia. Pleural: No significant pleural effusions or pneumothorax. Cardiac: Cardiomegaly. Mediastinum: Within normal limits. Bones: No acute fractures. Other: None IMPRESSION: No acute cardiopulmonary disease.
[2023-05-07 15:36] LABS: Protime INR 0.97
[2023-05-07 15:37] LABS: Absolute Lymphocytes (CBC) 0.8 K/uL (0.7-4.9); Hematocrit 51.5 % (39.6-49.0); Lymphocytes % 9.8 % (15.3-44.8); MCV 94.4 fL (80-100); MPV 7.4 fL (7.6-11.3); RBC Red Blood Cell Count 5.45 M/uL (4.33-5.43)
--- NOTE | 2023-05-07 17:49 | EDPHYS ---
Physician Documentation [facility] Name: Jatinder Scott Age: 42 yrs Sex: Male : 1980 Arrival Date: 05/07/2023 Time: 13:42 Bed 2 Private MD: ED Physician Denys Mistry HPI: 05/07 15:19 This 42 yrs old Male presents to ER via EMS with complaints of Chest Pain. familia 15:19 The patient or guardian reports chest pain that is located primarily in the substernal familia area. Onset: this morning. The pain does not radiate. Associated signs and symptoms: Pertinent positives: shortness of breath. The chest pain is described as a pressure. Modifying factors: The symptoms are alleviated by nothing. the symptoms are aggravated by nothing. Severity of pain: At its worst the pain was moderate in the emergency department the pain has improved moderately. The patient has not experienced similar symptoms in the past. 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 - Social history:: Smoking status: Patient denies any tobacco usage or history of. Patient uses alcohol, on a daily basis. 18 pack per day. - Family history:: not pertinent. ROS: 15:19 Constitutional: Negative for fever, chills, and weight loss, Eyes: Negative for injury, familia pain, redness, and discharge, ENT: Negative for injury, pain, and discharge, Neck: Negative for injury, pain, and swelling, Respiratory: Negative for shortness of breath, cough, wheezing, and pleuritic chest pain, Abdomen/GI: Negative for abdominal pain, nausea, vomiting, diarrhea, and constipation, Back: Negative for injury and pain, : Negative for injury, bleeding, discharge, and swelling, MS/Extremity: Negative for injury and deformity, Skin: Negative for injury, rash, and discoloration, Neuro: Negative for headache, weakness, numbness, tingling, and seizure, Psych: Negative for depression, anxiety, suicide ideation, homicidal ideation, and hallucinations, Allergy/Immunology: Negative for hives, rash, and allergies, Endocrine: Negative for neck swelling, polydipsia, polyuria, polyphagia, and marked weight changes, Hematologic/Lymphatic: Negative for swollen nodes, abnormal bleeding, and unusual bruising. 15:19 Cardiovascular: Positive for chest pain. Exam: 15:19 Constitutional: This is a well developed, well nourished patient who is awake, alert, familia and in no acute distress. Head/Face: Normocephalic, atraumatic. Eyes: Pupils equal round and reactive to light, extra-ocular motions intact. Lids and lashes normal. Conjunctiva and sclera are non-icteric and not injected. Cornea within normal limits. Periorbital areas with no swelling, redness, or edema. ENT: Nares patent. No nasal discharge, no septal abnormalities noted. Tympanic membranes are normal and external auditory canals are clear. Oropharynx with no redness, swelling, or masses, exudates, or evidence of obstruction, uvula midline. Mucous membranes moist. Neck: Trachea midline, no thyromegaly or masses palpated, and no cervical lymphadenopathy. Supple, full range of motion without nuchal rigidity, or vertebral point tenderness. No Meningismus. Chest/axilla: Normal chest wall appearance and motion. Nontender with no deformity. No lesions are appreciated. Cardiovascular: Regular rate and rhythm with a normal S1 and S2. No gallops, murmurs, or rubs. Normal PMI, no JVD. No pulse deficits. Respiratory: Lungs have equal breath sounds bilaterally, clear to auscultation and percussion. No rales, rhonchi or wheezes noted. No increased work of breathing, no retractions or nasal flaring. Abdomen/GI: Soft, non-tender, with normal bowel sounds. No distension or tympany. No guarding or rebound. No evidence of tenderness throughout. Back: No spinal tenderness. No costovertebral tenderness. Full range of motion. Skin: Warm, dry with normal turgor. Normal color with no rashes, no lesions, and no evidence of cellulitis. MS/ Extremity: Pulses equal, no cyanosis. Neurovascular intact. Full, normal range of motion. Neuro: Awake and alert, GCS 15, oriented to person, place, time, and situation. Cranial nerves II-XII grossly intact. Motor strength 5/5 in all extremities. Sensory grossly intact. Cerebellar exam normal. Normal gait. Psych: Awake, alert, with orientation to person, place and time. Behavior, mood, and affect are within normal limits. 15:19 ECG was reviewed by the Attending Physician. 15:49 ECG was reviewed by the Attending Physician. familia 17:48 Musculoskeletal/extremity: ROM: no acute changes, intact in all extremities, familia Circulation is intact in all extremities. Sensation intact. Compartment Syndrome exam of affected extremity: is normal. DVT Exam: No signs of deep vein thrombosis. no pain, no swelling, no tenderness, negative Homans' sign noted on exam, no appreciated bluish discoloration, no erythema, no increased warmth. Vital Signs: 13:46 BP 141 / 68; Pulse 48; Resp 18; Temp 97.5; Pulse Ox 94% on R/A; Weight 149.69 kg; ph Height 6 ft. 4 in. ; Pain 4/10; 15:57 BP 138 / 88; Pulse 57; Resp 18; Pulse Ox 94% ; ph 17:00 BP 141 / 78; Pulse 56; Resp 18; Temp 97.9; Pulse Ox 99% on R/A; ph 13:46 Body Mass Index 40.17 (149.69 kg, 193.04 cm) ph 13:46 Pain Scale: Adult ph MDM: 13:46 Patient medically screened. familia 15:22 Differential diagnosis: abnormal EKG, acute myocardial infarction, acute pericarditis, familia anxiety, coronary artery disease cholecystitis, Cholelithiasis costochondritis, gastritis, gastroesophageal reflux disease (GERD), myocarditis, pancreatitis, peptic ulcer disease, pneumonia, pulmonary embolus, stable angina, thoracic aortic disection, unstable angina. HEART Score: History: Slightly Suspicious (0), ECG: Normal (0), Age: < or = 45 years (0), Risk Factors: No Risk Factors Known (0), Troponin: < or = 1 x Normal Limit (0), Total Score = 0. The patient was given aspirin in the Emergency Department. STORM Risk Score: TOTAL SCORE = 0. Data reviewed: vital signs, nurses notes, EMS record, lab test result(s), EKG, radiologic studies, plain films. Consideration of Admission/Observation Escalation of care including admission/observation considered. I considered the following discharge prescriptions or medication management in the emergency department Medications were administered in the Emergency Department. See MAR. Test considered but Not performed: CT: no ct chest ro pe. Counseling: I had a detailed discussion with the patient and/or guardian regarding: the historical points, exam findings, and any diagnostic results supporting the discharge/admit diagnosis, lab results, radiology results, the need for outpatient follow up, for definitive care, a vp of customer experience strategy, a family practitioner. 17:49 ED course: NO TRAUMA , NO STASIS, NO HC STATE, NO HX PE, NO DVT. 05/07 13:48 Order name: Basic Metabolic Panel; Complete Time: 15:22 [facility] 05/07 13:48 Order name: CBC with Diff; Complete Time: 15:47 05/07 13:48 Order name: LFT's; Complete Time: 15:22 familia 05/07 13:48 Order name: Magnesium; Complete Time: 15:22 [facility] 05/07 13:48 Order name: NT PRO-BNP; Complete Time: 15:22 [facility] 05/07 13:48 Order name: PT-INR; Complete Time: 15:47 05/07 13:48 Order name: Troponin HS; Complete Time: 15:22 [facility] 05/07 13:48 Order name: Lipase; Complete Time: 15:22 familia 05/07 13:48 Order name: UDS 05/07 13:48 Order name: Urinalysis w/ reflexes 05/07 15:19 Order name: Troponin HS: 5 pm; Complete Time: 16:17 familia 05/07 16:57 Order name: Troponin HS; Complete Time: 17:48 05/07 13:48 Order name: XRAY Chest (1 view); Complete Time: 15:47 05/07 13:48 Order name: EKG; Complete Time: 13:49 [facility] 05/07 15:19 Order name: EKG; Complete Time: 15:20 familia 05/07 13:48 Order name: Cardiac monitoring; Complete Time: 13:52 05/07 13:48 Order name: EKG - Nurse/Tech; Complete Time: 15:08 05/07 13:48 Order name: IV Saline Lock; Complete Time: 15:08 familia 05/07 13:48 Order name: Labs collected and sent; Complete Time: 15:08 05/07 13:48 Order name: O2 Per Protocol; Complete Time: 13:52 05/07 13:48 Order name: O2 Sat Monitoring; Complete Time: 13:52 [facility] 05/07 15:19 Order name: EKG - Nurse/Tech; Complete Time: 16:29 familia EC:19 Rate is 52 beats/min. QRS [place] is Normal. OR interval is normal. QRS interval is familia normal. QT interval is normal. No Q waves. T waves are Normal. No ST changes noted. Clinical impression: Sinus bradycardia and No evidence of ischemia. Interpreted by me. Reviewed by me. 15:49 Rate is 53 beats/min. Rhythm is regular. QRS [place] is Normal. OR interval is normal. QRS familia interval is normal. QT interval is normal. No Q waves. T waves are Normal. No ST changes noted. Clinical impression: Sinus bradycardia and No evidence of ischemia. Interpreted by me. Reviewed by me. Administered Medications: 13:52 Not Given (given by EMS): Aspirin PO Chewable Tablet 162 mg PO once ph Disposition Summary: 05/07/23 17:48 Discharge Ordered Location: Home familia Problem: new familia Symptoms: have improved familia Condition: Stable familia Diagnosis - Chest pain, unspecified familia Followup: familia - With: Emergency Department - When: 2 - 3 days - Reason: Recheck today's complaints, Continuance of care, Re-evaluation by your physician Discharge Instructions: - Discharge Summary Sheet familia - Nonspecific Chest Pain, Adult familia - Nonspecific Chest Pain, Adult, [id number] familia - Aspirin and Your Heart familia Forms: - Medication Reconciliation Form familia - Thank You Letter familia - Antibiotic Education familia - Prescription Opioid Use familia - Patient Portal Instructions familia Signatures: Dispatcher [employer] Denys Infante MD MD cha Hall, Patricia, RN RN ph
--- NOTE | 2023-05-07 17:49 | ER ---
Nurse's Notes [facility] Name: Jatinder Scott Age: 42 yrs Sex: Male : 1980 Arrival Date: 05/07/2023 Time: 13:42 Bed 2 Private MD: Diagnosis: Chest pain, unspecified Presentation: 05/07 13:46 Chief complaint: EMS states: Pt brought in from [facility], c/o chest pain that ph started this morning, officers at bedside report that pt's home was raided this morning, afterwards pt was found to have a bottle of Fentanyl in his rectum, pt reports to EMS that bottle was in his pocket, denies ingestion. Coronavirus screen: Vaccine status: Patient reports being unvaccinated. Ebola Screen: No symptoms or risks identified at this time. Initial Sepsis Screen: Does the patient meet any 2 criteria? No. Patient's initial sepsis screen is negative. Does the patient have a suspected source of infection? No. Patient's initial sepsis screen is negative. Risk Assessment: Do you want to hurt yourself or someone else? Patient reports no desire to harm self or others. Onset of symptoms was May 07, 2023. 13:46 Method Of Arrival: EMS: [facility] 13:46 Acuity: JAYLEEN 3 ph 13:50 Care prior to arrival: Medication(s) given: ASA, 325 mg. ph Triage Assessment: 13:51 General: Appears in no apparent distress. uncomfortable, Behavior is calm, cooperative. ph Pain: Complains of pain in mid-sternal area. Neuro: Level of Consciousness is awake, alert, obeys commands, Oriented to person, place, time, situation. Cardiovascular: Reports chest pain, shortness of breath, Capillary refill < 3 seconds in bilateral fingers Patient's skin is warm and dry. Respiratory: Airway is patent Respiratory effort is even, unlabored. GI: No signs and/or symptoms were reported involving the gastrointestinal system. Derm: Skin is pink, warm \T\ dry. Musculoskeletal: Circulation, motion, and sensation intact. Range of motion: intact in all extremities. 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 - Social history:: Smoking status: Patient denies any tobacco usage or history of. Patient uses alcohol, on a daily basis. 18 pack per day. - Family history:: not pertinent. Screenin:49 [facility] ED Fall Risk Assessment (Adult) History of falling in the last 3 months, ph including since admission No falls in past 3 months (0 pts) Confusion or Disorientation No (0 pts) Intoxicated or Sedated No (0 pts) Impaired Gait No (0 pts) Mobility Assist Device Used No (0 pt) Altered Elimination No (0 pt) Score/Fall Risk Level 0 - 2 = Low Risk Oriented to surroundings, Maintained a safe environment, Hourly rounding (assess needs \T\ fall precautionary measures) done, Used ambulatory aids as needed (educated on \T\ assisted with). Abuse screen: Denies threats or abuse. Denies injuries from another. Nutritional screening: No deficits noted. Tuberculosis screening: No symptoms or risk factors identified. Assessment: 14:00 General: SEE TRIAGE ASSESSMENT. ph 18:14 Reassessment: No changes from previously documented assessment. Patient and/or family mb9 updated on plan of care and expected duration. Pain level reassessed. Patient is alert, oriented x 3, equal unlabored respirations, skin warm/dry/pink. Vital Signs: 13:46 BP 141 / 68; Pulse 48; Resp 18; Temp 97.5; Pulse Ox 94% on R/A; Weight 149.69 kg; ph Height 6 ft. 4 in. ; Pain 4/10; 15:57 BP 138 / 88; Pulse 57; Resp 18; Pulse Ox 94% ; ph 17:00 BP 141 / 78; Pulse 56; Resp 18; Temp 97.9; Pulse Ox 99% on R/A; ph 13:46 Body Mass Index 40.17 (149.69 kg, 193.04 cm) ph 13:46 Pain Scale: Adult ED Course: 13:45 Patient arrived in ED. ph 13:46 Denys Mistry MD is Attending Physician. [facility] 13:49 Triage completed. ph 13:50 Arm band placed on Patient placed in an exam room, on a stretcher, on transmitter supervisor, ph on pulse oximetry. 13:51 Patient has correct armband on for positive identification. Bed in low position. Call ph light in reach. Side rails up X 1. Client placed on continuous cardiac and pulse oximetry monitoring. NIBP monitoring applied. 13:52 Yaquelin Moreland, RN is Primary Nurse. ph 15:08 Lipase Sent. mm9 15:09 Side rails up X2. mm9 15:09 Basic Metabolic Panel Sent. mm9 15:09 CBC with Diff Sent. mm9 15:09 LFT's Sent. mm9 15:09 Magnesium Sent. mm9 15:09 NT PRO-BNP Sent. mm9 15:09 PT-INR Sent. mm9 15:09 Troponin HS Sent. mm9 15:09 Initial lab(s) drawn, by ED staff, sent to lab. EKG done, by ED staff, reviewed by oliver Mistry MD. 15:27 XRAY Chest (1 view) In Process Unspecified. EDMS 18:14 No provider procedures requiring assistance completed. IV discontinued, intact, mb9 bleeding controlled, No redness/swelling at site. Pressure dressing applied. Administered Medications: 13:52 Not Given (given by EMS): Aspirin PO Chewable Tablet 162 mg PO once ph Medication: 13:51 VIS not applicable for this client. ph Outcome: 17:48 Discharge ordered by . familia 18:15 Discharged to Law Enforcement mb9 18:15 Condition: stable 18:15 Discharge instructions given to patient, Instructed on discharge instructions, follow up and referral plans. Demonstrated understanding of instructions, follow-up care. 18:15 Patient left the ED. mb9 Signatures: Dispatcher [employer] Denys Infante MD MD cha Hall, Patricia, RN RN Lia Calabrese [facility] Shae Durham, RN RN mb9
[2023-05-07 18:35] LABS: Specific Gravity 1.022 (1.005-1.030); Urine Bacteria None Seen /HPF (<20); Urine Bilirubin NEGATIVE (Negative); Urine Blood Negative (Negative); Urine Clarity Extremely Turbid (Clear); Urine Color Yellow (Yellow); Urine Glucose NEGATIVE (Negative); Urine Mucus Slight /HPF (None Seen); Urine Protein TRACE (Negative); Urine Urobilinogen 1+ (Normal)
[2023-05-07 18:36] LABS: Barbiturates NEGATIVE (NEGATIVE); Benzodiazepines POSITIVE (NEGATIVE); Cocaine POSITIVE (NEGATIVE); METHAMPHETAM NEGATIVE (NEGATIVE); Methadone NEGATIVE (NEGATIVE); Opiates NEGATIVE (NEGATIVE); Phencyclidine NEGATIVE (NEGATIVE); THC Cannibis NEGATIVE (NEGATIVE)
[2023-05-07 20:27] VITALS: TEMP 97.5; O2SAT 94
[2023-05-07 20:29] VITALS: BP 138/88
--- NOTE | 2023-05-10 11:50 | EKG ---
Test Date: 2023-05-07 Test Time: 15:46:03 Back Office Medical Assistant: ROXI MEASUREMENT RESULTS: Intervals: Rate: 53 IA: 146 QRSD: 76 QT: 442 QTc: 414 [place]: P: 31 IA: 146 QRS: 27 T: 66 INTERPRETIVE STATEMENTS: Sinus bradycardia with sinus arrhythmia Otherwise normal ECG Compared to ECG 05/07/2023 15:06:47 No significant changes Electronically Signed On 05-10-23 11:46:20 CDT by Romel Renee
--- NOTE | 2023-05-10 11:50 | EKG ---
Test Date: 2023-05-07 Test Time: 15:06:47 Automotive Sales Associate: KVAON MEASUREMENT RESULTS: Intervals: Rate: 52 IL: 144 QRSD: 82 QT: 442 QTc: 411 [place]: P: 42 IL: 144 QRS: 35 T: 73 INTERPRETIVE STATEMENTS: Sinus bradycardia with sinus arrhythmia Otherwise normal ECG Compared to ECG 08/13/2020 16:08:57 Sinus tachycardia no longer present Electronically Signed On 05-10-23 11:46:22 CDT by Romel Renee
== END 2023-05-07 18:15 | disposition home or self-care (01) ==
LOC: ER 13:42
DX: R07.9 Chest pain, unspecified (principal)
CPT/HCPCS: 36415; 71045; 80048; 80076; 80307; 81001; 83690; 83735; 83880; 84484; 85025; 85610; 93005; 99284

== ENCOUNTER 2023-09-29 19:38 | Inpatient (IN) | payer SELFPAY ==
[2023-09-29 20:55] LABS: Absolute Lymphocytes (CBC) 0.3 K/uL (0.7-4.9); Hematocrit 42.1 % (39.6-49.0); Lymphocytes % 3.8 % (15.3-44.8); MCV 95.2 fL (80-100); MPV 7.3 fL (7.6-11.3); Platelets 141 thou/uL (152-406); RBC Red Blood Cell Count 4.42 M/uL (4.33-5.43)
[2023-09-29 20:56] LABS: SARS-CoV-2 Antigen Rapid Res Negative (Negative)
[2023-09-29] MEDS ORDERED: ALBUTEROL 2.5 MG/3 ML NEB SOL ONE ×2 (20:57→21:04)
[2023-09-29] MEDS ORDERED: IPRATROPIUM BROM 0.5MG/2.5ML ONE ×2 (20:57→21:04)
[2023-09-29 21:00] LABS: Protime INR 1.09
[2023-09-29] MEDS ORDERED: NA CHLORIDE 0.9% 100 ML ONE (21:04)
[2023-09-29] MEDS ORDERED: NA CHLORIDE 0.9% 250 ML ONE (21:04)
[2023-09-29] MEDS ORDERED: NA CHLORIDE 0.9% 1,000 ML ONE (21:04)
[2023-09-29] MEDS ORDERED: VANCOMYCIN 1 GM/VIAL ONE (21:04)
[2023-09-29] MEDS ORDERED: CEFEPIME 2 GM VIAL ONE (21:04)
[2023-09-29 21:10] LABS: Albumin 2.9 g/dL (3.4-5.0); Bilirubin Total 0.6 mg/dL (0.2-1.0)
[2023-09-29 21:12] LABS: Potassium 5.2 mEq/L (3.5-5.1)
[2023-09-29 21:21] LABS: Arterial Blood Carboxyhemoglob 1.4 % (0-1.5); Blood Gas Oxyhemoglobin 90.9 % (94-97); Blood O2 Saturation 93.8 % (92-98.5)
[2023-09-29] MEDS ORDERED: KETOROLAC 30 MG/ML INJ ONE (21:27)
[2023-09-29] MEDS ORDERED: ACETAMINOPHEN 500 MG TAB ONE (21:27)
[2023-09-29] MEDS ORDERED: OSELTAMIVIR 75 MG CAP PO ONE (21:44)
[2023-09-29 21:49] LABS: C-Reactive Protein 55.6 mg/L (<3.00)
--- NOTE | 2023-09-29 21:51 | RAD REPORT ---
EXAM DESCRIPTION: RAD - Chest Single View - 09/29/2023 9:42 pm CLINICAL HISTORY: DYSPNEA Chest pain. COMPARISON: Chest Single View dated 05/07/2023; Chest Single View dated 08/13/2020; Chest Single View dated 04/30/2020 FINDINGS: Portable technique limits examination quality. Mildly prominent interstitial lung markings, likely chronic. The heart is mildly enlarged in size. No displaced fractures.
[2023-09-29 22:20] LABS: Barbiturates NEGATIVE (NEGATIVE); Benzodiazepines POSITIVE (NEGATIVE); Cocaine POSITIVE (NEGATIVE); METHAMPHETAM POSITIVE (NEGATIVE); Methadone POSITIVE (NEGATIVE); Opiates NEGATIVE (NEGATIVE); Phencyclidine NEGATIVE (NEGATIVE); THC Cannibis NEGATIVE (NEGATIVE)
--- NOTE | 2023-09-29 22:33 | RAD REPORT ---
EXAM DESCRIPTION: CT - Chest Abdomen Pelvis W Cont - 09/29/2023 10:15 pm CLINICAL HISTORY: Chest and abdomen pain. CHEST PAIN COMPARISON: No comparisons TECHNIQUE: Approximately 100 mL nonionic IV contrast was administered to the patient. All CT scans are performed using dose optimization technique as appropriate and may include automated exposure control or mA/KV adjustment according to patient size. FINDINGS: The lungs are clear.No pleural or pericardial effusion.No intrathoracic adenopathy. The liver, spleen, pancreas, adrenal glands and kidneys are within normal limits. No bowel obstruction, free air, free fluid or abscess. Normal appendix. No pathologic lymphadenopath y in the abdomen or pelvis. Small fat containing left inguinal hernia. No worrisome osseous finding. IMPRESSION: No acute abnormality is detected.
--- NOTE | 2023-09-29 22:57 | ER ---
Nurse's Notes [facility] Name: Jatinder Scott Age: 42 yrs Sex: Male : 1980 Arrival Date: 09/29/2023 Time: 19:38 Bed 19 Private MD: Diagnosis: Respiratory failure with hypercarbia, right lower extremity cellulitis, amphetamine abuse, cocaine abuse, benzodiazepine use, Influenza B Presentation: 09/29 19:45 Chief complaint: EMS states: toned out for a patient that was difficult to arrouse. me1 Patient has been sick with flu symptoms since Wednesday and his friend stopped by to see him and had a difficult time waking him up. Room air sat 88% which improved to 99% with A\T\A neb tx by EMS. Reports new onset edema to BLE. HR 110s. Coronavirus screen:. Ebola Screen: No symptoms or risks identified at this time. 19:45 Method Of [place] [facility] Initial Sepsis Screen: Does the patient meet any 2 criteria? HR > 90 bpm. Does the or1 patient have a suspected source of infection? Yes: Productive cough/pneumonia. Risk Assessment: Do you want to hurt yourself or someone else? Patient reports no desire to harm self or others. Onset of symptoms was September 29, 2023. 19:45 Acuity: JAYLEEN 2 or1 Triage Assessment: 20:39 General: Appears ill, obese, well developed, well nourished, Behavior is drowsy, me1 listless, quiet, Reports Per EMS patient has been sick with flu like symptoms since Wednesday. Friend stopped by to see him today and was having difficulty arousing patient from sleep. Pain: Denies pain. Neuro: Level of Consciousness is awake, lethargic, stuporous, Arousable with verbal stimuli at times and at times it requires painful stimuli. Patient will wake up for less that 30 seconds and goes back to sleep. . Cardiovascular: Capillary refill < 3 seconds Patient's skin is warm and dry. Respiratory: Airway is patent Respiratory effort is even, unlabored, Respiratory pattern is symmetrical, snoring. 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 - Social history:: Smoking status: unknown Patient uses alcohol, only on a social basis. Screenin:44 [facility] ED Fall Risk Assessment (Adult) History of falling in the last 3 months, me1 including since admission No falls in past 3 months (0 pts) Confusion or Disorientation No (0 pts) Intoxicated or Sedated No (0 pts) Impaired Gait No (0 pts) Mobility Assist Device Used No (0 pt) Altered Elimination No (0 pt) Score/Fall Risk Level 0 - 2 = Low Risk Maintained a safe environment, Provided non-skid footwear, Hourly rounding (assess needs \T\ fall precautionary measures) done. Abuse screen: Denies threats or abuse. Nutritional screening: No deficits noted. Tuberculosis screening: No symptoms or risk factors identified. Assessment: 20:44 General: See triage assessment. . me1 22:42 Reassessment: Patient and/or family updated on plan of care and expected duration. Pain vc1 level reassessed. Patient is alert, oriented x 3, equal unlabored respirations, skin warm/dry/pink. 23:10 Reassessment: Patient and/or family updated on plan of care and expected duration. Pain vc1 level reassessed. Patient is alert, oriented x 3, equal unlabored respirations, skin warm/dry/pink. Patient states feeling better. Patient states symptoms have improved. Vital Signs: 19:45 BP 134 / 69; Pulse 102; Resp 14; Pulse Ox 86% on R/A; Weight 149.69 kg; Height 6 ft. 4 me1 in. ; 19:45 BP 149 / 70; Pulse 104; Resp 14; Temp 101.4(O); Pulse Ox 88% on 2 lpm NC; me1 20:12 Pulse Ox 97% on 3 lpm NC; me1 21:03 BP 148 / 80; Pulse 102; Resp 20; Pulse Ox 99% on BiPAP; me1 22:00 BP 104 / 71; Pulse 91; Resp 16; Pulse Ox 98% ; vc1 23:10 BP 110 / 78; Pulse 75; Resp 18; Temp 97.6; Pulse Ox 97% on 3 lpm NC; vc1 19:45 Body Mass Index 40.17 (149.69 kg, 193.04 cm) me1 ED Course: 19:41 Patient arrived in ED. rv1 19:42 Yoan Garza MD is Attending Physician. rt 19:49 Eddleman, Alejandrina, VON is Primary Nurse. me1 20:10 Attending Physician role handed off by Yoan Garza MD sp4 20:10 Mike Tsai MD is Attending Physician. sp4 20:12 Inserted saline lock: 20 gauge in left antecubital area, using aseptic technique. me1 20:39 Triage completed. me1 20:39 Arm band placed on Patient placed in an exam room. me1 20:44 Patient has correct armband on for positive identification. Bed in low position. Call me1 light in reach. Side rails up X2. Provided Education on: POC. Verbalized understanding. . 20:44 No provider procedures requiring assistance completed. me1 20:45 Influenza Screen (A Sent. me1 20:45 Lactate w/ 2H reflex if indic. Sent. me1 20:45 PTT, Activated Partial Thromb Sent. me1 20:45 SARS-COV-2 Antigen Rapid Sent. me1 20:45 CBC with Automated Diff Sent. me1 20:45 Protime (+INR) Sent. me1 20:45 Comprehensive Metabolic Panel Sent. me1 20:45 NT PRO-BNP Sent. me1 21:08 EKG done, by ED staff, reviewed by Mike Tsai MD. wm 21:44 Chest Single View XRAY In Process Unspecified. EDMS 22:17 CT Chest, Abdomen, Pelvis - W/Contrast In Process Unspecified. EDMS 23:56 Initiated transfer with Ar[facility] at [facility]. rv1 12 00:16 Evert Osborn MD is Hospitalizing Provider. sp4 Administered Medications: 09/29 21:00 Drug: Cefepime IVPB 2 grams IVPB at 200 ml/hr once over 30 mins; (mix in NS 100 mL) me1 Route: IVPB; Rate: 200 ml/hr; Infused Over: 30 mins; Site: left antecubital; 21:34 Follow up: Response: No adverse reaction; IV Status: Completed infusion me1 21:00 Drug: DuoNeb Nebulize (3:1) (2.5 mg - 0.5 mg) 3 ml Nebulizer once {Note: administered me1 by RT..} Route: Nebulizer; 21:00 Drug: NS 0.9% IV 1000 ml IV at 1 bolus Per protocol; 1000 mL bolus Route: IV; Rate: 1 me1 bolus; Site: left antecubital; 21:16 Drug: Ketorolac IVP 30 mg IVP once Route: IVP; Site: left antecubital; me1 21:28 Drug: Acetaminophen PO 1000 mg PO once Route: PO; me1 21:34 Drug: Oseltamivir PO 75 mg PO once Route: PO; me1 21:35 Drug: vancoMYCIN IVPB 1 grams IVPB once over 2 hrs Route: IVPB; Infused Over: 2 hrs; me1 Site: left antecubital; Medication: 20:44 VIS not applicable for this client. me1 Outcome: 22:57 ER care complete, transfer ordered by . sp4 09/30 00:17 Decision to Hospitalize by Provider. sp4 17:41 Patient left the ED. iw Signatures: Dispatcher [employer] Snehal Brady RN RN iw Alva Villalba Vanessa, RN RN vc1 Yoan Garza MD MD rt Daisy Wheeler rv1 Mike Tsai MD MD sp4 Alejandrina Bello RN RN me1 Corrections: (The following items were deleted from the chart) 09/29 21:10 19:45 BP 149 / 70; Pulse 104bpm; Resp 14bpm; Pulse Ox 88% 2 lpm Nasal Cannula; or1 or1 21:33 21:09 C-REACTIVE PROTEIN+C.LAB.BRZ drawn and [place]. [facility] [place]
--- NOTE | 2023-09-29 22:57 | EDPHYS ---
Physician Documentation [facility] Name: Jatinder Scott Age: 42 yrs Sex: Male : 1980 Arrival Date: 09/29/2023 Time: 19:38 Bed 19 Private MD: ED Physician Mike Tsai HPI: 09/29 20:18 This 42 yrs old Male presents to ER via Unassigned with complaints of Shortness of rt breath. 20:18 Patient presents to the ED with dyspnea, fever, chills, malaise, reported altered rt mental status. Patient has reportedly been sick for the past 3 days. Oxygen saturations were 86% on room air. No further history could be obtained due to slowed mentation. Symptoms are moderate in severity, no other aggravating alleviating factors.. 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 - Social history:: Smoking status: unknown Patient uses alcohol, only on a social basis. ROS: 20:18 Unable to obtain ROS due to altered mental status, rt 21:15 All other systems are negative, sp4 23:50 Constitutional: Positive fever, positive chills, positive shortness of breath sp4 Exam: 20:18 Head/Face: Normocephalic, atraumatic. Chest/axilla: Normal chest wall appearance and rt motion. Nontender with no deformity. No lesions are appreciated. Cardiovascular: Regular rate and rhythm with a normal S1 and S2. No gallops, murmurs, or rubs. Normal PMI, no JVD. No pulse deficits. Abdomen/GI: Soft, non-tender, with normal bowel sounds. No distension or tympany. No guarding or rebound. No evidence of tenderness throughout. Skin: Warm, dry with normal turgor. Normal color with no rashes, no lesions, and no evidence of cellulitis. MS/ Extremity: Pulses equal, no cyanosis. Neurovascular intact. Full, normal range of motion. 20:18 Respiratory: Diminished breath sounds diffusely, mild respiratory distress, 20:18 Neuro: Mumbling speech, slow to respond, moves all 4 extremities equally, 21:15 ECG was reviewed by the Attending Physician. Normal sinus rhythm normal EKG at the rate sp4 of 96, EKG time 2048 Vital Signs: 19:45 BP 134 / 69; Pulse 102; Resp 14; Pulse Ox 86% on R/A; Weight 149.69 kg; Height 6 ft. 4 me1 in. ; 19:45 BP 149 / 70; Pulse 104; Resp 14; Temp 101.4(O); Pulse Ox 88% on 2 lpm NC; me1 20:12 Pulse Ox 97% on 3 lpm NC; me1 21:03 BP 148 / 80; Pulse 102; Resp 20; Pulse Ox 99% on BiPAP; me1 22:00 BP 104 / 71; Pulse 91; Resp 16; Pulse Ox 98% ; vc1 23:10 BP 110 / 78; Pulse 75; Resp 18; Temp 97.6; Pulse Ox 97% on 3 lpm NC; vc1 19:45 Body Mass Index 40.17 (149.69 kg, 193.04 cm) me1 MDM: 19:42 Patient medically screened. rt 23:48 Differential Diagnosis altered mental status, sepsis, flu. Data reviewed: vital signs, sp4 nurses notes, EMS record, old medical records, lab test result(s), EKG, radiologic studies, CT scan, plain films. Consideration of Admission/Observation Patient was admitted/placed on observation. Escalation of care including admission/observation considered. Management of patient was discussed with the following: Hospitalist: Hospitalist at [facility] [place]. 23:49 ED course: CT - EXAM DESCRIPTION: CT - Chest Abdomen Pelvis W Cont - 09/29/2023 10:15 pm sp4 CLINICAL HISTORY: Chest and abdomen pain. CHEST PAIN COMPARISON: No comparisons TECHNIQUE: Approximately 100 mL nonionic IV contrast was administered to the patient. All CT scans are performed using dose optimization technique as appropriate and may include automated exposure control or mA/KV adjustment according to patient size. FINDINGS: The lungs are clear.No pleural or pericardial effusion.No intrathoracic adenopathy. The liver, spleen, pancreas, adrenal glands and kidneys are within normal limits. No bowel obstruction, free air, free fluid or abscess. Normal appendix. No pathologic lymphadenopathy in the abdomen or pelvis. Small fat containing left inguinal hernia. No worrisome osseous finding. IMPRESSION: No acute abnormality is detected.. ED course: Chest X ray - EXAM DESCRIPTION: RAD - Chest Single View - 09/29/2023 9:42 pm CLINICAL HISTORY: DYSPNEA Chest pain. COMPARISON: Chest Single View dated 05/07/2023; Chest Single View dated 08/13/2020; Chest Single View dated 04/30/2020 FINDINGS: Portable technique limits examination quality. Mildly prominent interstitial lung markings, likely chronic. The heart is mildly enlarged in size. No displaced fractures.. 09/29 19:43 Order name: Blood Culture Adult (2) rt 09/29 19:43 Order name: ABG; Complete Time: 23:47 rt 09/29 19:43 Order name: SARS RAPID rt 09/29 20:35 Order name: Alcohol Level; Complete Time: 22:37 sp4 09/29 20:35 Order name: Urine Drug Screen; Complete Time: 22:37 sp4 09/29 20:40 Order name: Comprehensive Metabolic Panel; Complete Time: 22:37 EDMS 09/29 20:40 Order name: NT PRO-BNP; Complete Time: 22:37 EDMS 09/29 20:40 Order name: Lactate w/ 2H reflex if indic.; Complete Time: 21:12 EDMS 09/29 20:40 Order name: SARS-COV-2 Antigen Rapid; Complete Time: 21:12 EDMS 09/29 20:40 Order name: CBC with Automated Diff; Complete Time: 21:12 EDMS 09/29 20:40 Order name: Protime (+INR); Complete Time: 21:12 EDMS 09/29 20:40 Order name: PTT, Activated Partial Thromb; Complete Time: 21:12 EDMS 09/29 20:40 Order name: Influenza Screen (A ; Complete Time: 21:12 EDMS 09/29 21:34 Order name: C-Reactive Protein; Complete Time: 22:37 EDMS 09/30 00:17 Order name: Urinalysis w/ reflexes; Complete Time: 09:57 EDMS 09/30 00:17 Order name: CBC with Automated Diff EDMS 09/30 00:17 Order name: CBC with Automated Diff EDMS 09/30 00:17 Order name: Comprehensive Metabolic Panel EDMS 09/30 00:17 Order name: Comprehensive Metabolic Panel EDMS 09/30 09:15 Order name: Troponin High Sensitivity; Complete Time: 09:57 EDMS 09/29 19:43 Order name: Chest Single View XRAY; Complete Time: 22:37 rt 09/29 20:35 Order name: CT Chest, Abdomen, Pelvis - W/Contrast; Complete Time: 22:37 sp4 09/30 12:23 Order name: US; Complete Time: 15:01 EDMS 09/30 14:10 Order name: CT; Complete Time: 15:01 EDMS 09/29 19:43 Order name: EKG; Complete Time: 21:08 rt 09/29 19:43 Order name: Accucheck; Complete Time: 20:46 rt 09/29 19:43 Order name: Cardiac monitoring; Complete Time: 21:07 rt 09/29 19:43 Order name: EKG - Nurse/Tech; Complete Time: 21:07 rt 09/29 19:43 Order name: IV Saline Lock - Large Bore; Complete Time: 20:45 rt 09/29 19:43 Order name: Labs collected and sent; Complete Time: 20:45 rt 09/29 19:43 Order name: O2 Per Protocol; Complete Time: 20:45 rt 09/29 19:43 Order name: O2 Sat Monitoring; Complete Time: 20:45 rt 09/29 19:43 Order name: Vital Signs; Complete Time: 20:45 rt EC:15 Rate is 96 beats/min. Rhythm is regular, Normal Sinus Rhythm. QRS Ambler is Normal. MO sp4 interval is normal. QRS interval is normal. QT interval is normal. No Q waves. T waves are Normal. No ST changes noted. Clinical impression: Normal ECG. Interpreted by me. Reviewed by me. Administered Medications: 21:00 Drug: Cefepime IVPB 2 grams IVPB at 200 ml/hr once over 30 mins; (mix in NS 100 mL) me1 Route: IVPB; Rate: 200 ml/hr; Infused Over: 30 mins; Site: left antecubital; 21:34 Follow up: Response: No adverse reaction; IV Status: Completed infusion me1 21:00 Drug: DuoNeb Nebulize (3:1) (2.5 mg - 0.5 mg) 3 ml Nebulizer once {Note: administered me1 by RT..} Route: Nebulizer; 21:00 Drug: NS 0.9% IV 1000 ml IV at 1 bolus Per protocol; 1000 mL bolus Route: IV; Rate: 1 me1 bolus; Site: left antecubital; 21:16 Drug: Ketorolac IVP 30 mg IVP once Route: IVP; Site: left antecubital; me1 21:28 Drug: Acetaminophen PO 1000 mg PO once Route: PO; me1 21:34 Drug: Oseltamivir PO 75 mg PO once Route: PO; me1 21:35 Drug: vancoMYCIN IVPB 1 grams IVPB once over 2 hrs Route: IVPB; Infused Over: 2 hrs; me1 Site: left antecubital; Disposition Summary: 09/30/23 00:17 Hospitalization Ordered Notes: Hospitalization Status: Inpatient Admission sp4 Provider: Evert Osborn sp4 Condition: Stable(09/30/23 00:17) sp4 Problem: new(09/30/23 00:17) sp4 Symptoms: have improved(09/30/23 00:17) sp4 Bed/Room Type: Standard sp4 Location: Telemetry/MedSurg (Inpatient)(09/30/23 16:00) em1 Room Assignment: 406(09/30/23 16:42) [facility] Diagnosis - Respiratory failure with hypercarbia, right lower extremity cellulitis, amphetamine sp4 abuse, cocaine abuse, benzodiazepine use, Influenza B Forms: - Medication Reconciliation Form sp4 - SBAR form sp4 - Leadership Thank You Letter sp4 Signatures: Dispatcher [employer] EDMS Raven Jordan, RN Lexx Gonzalez em1 Robert Su FNP-C [employer] EDUCATION ASSOCIATE-Cla1 Tobias Zeng RN RN ja1 Yoan Garza MD MD rt Mike Tsai MD MD sp4 Alejandrina Bello RN RN me1 Corrections: (The following items were deleted from the chart) 21: 21:08 CBC+H.LAB.BRZ ordered. EDMS EDMS 21: 21:08 COMPREHENSIVE METABOLIC PANEL+C.LAB.BRZ ordered. EDMS EDMS 21: 21:08 LACTATE+C.LAB.BRZ ordered. EDMS EDMS : 21:08 PROTIME (+INR)+COAG.LAB.BRZ ordered. EDMS EDMS : 21:08 Troponin High Sensitivity+C.LAB.BRZ ordered. EDMS EDMS : 21:08 PROBNP+C.LAB.BRZ ordered. EDMS EDMS 21: 21:08 PTT, ACTIVATED+COAG.LAB.BRZ ordered. EDMS EDMS 21:29 21:08 Influenza Screen (A \T\ B)+BA.LAB.BRZ ordered. EDMS EDMS 21:33 21:08 C-REACTIVE PROTEIN+C.LAB.BRZ ordered. EDMS EDMS 09/30 00:15 12 22:57 [facility] sp4 sp4 09/30 00:15 09/29 22:57 [facility] sp4 sp4 09/30 00:15 09/29 22:57 Higher level of care sp4 sp4 09/30 00:15 09/29 22:57 Stable sp4 sp4 09/30 00:15 09/29 22:57 new sp4 sp4 09/30 00:15 09/29 22:57 have improved sp4 sp4 09/30 00:15 09/29 22:57 Acute respiratory failure with hypercarbia, influenza B, methamphetamine sp4 abuse, cocaine abuse, benzodiazepine abuse, right lower extremity cellulitis sp4 09/30 01:47 00:17 Telemetry/MedSurg (Inpatient) sp4 kl 01:47 00:17 sp4 kl 16:00 01:47 [facility] ER HOLD kl em1 16:00 01:47 ERHOLD- kl em1 16:42 16:00 424 em1 ja1
[2023-09-30] MEDS ORDERED: ACETAMINOPHEN 500 MG TAB PO PRN (00:11)
[2023-09-30] MEDS ORDERED: ONDANSETRON 4 MG/2 ML VIAL IV PRN (00:11)
--- NOTE | 2023-09-30 00:17 | P.HP ---
Certification for Inpatient Patient admitted to: Inpatient With expected LOS: >2 Midnights Patient will require the following post-hospital care: None Practitioner: I am a practitioner with admitting privileges, knowledge of patient current condition, hospital course, and medical plan of care. Services: Services provided to patient in accordance with Admission requirements found in Title 42 Section 412.3 of the Code of Federal Regulations Patient History Date of Service: 09/30/23 Reason for admission: SOB History of Present Illness: 42 yrs old Male with past medical history of hypertension, anxiety, chronic back pain, obesity came in with shortness of breath . Patient started having upper respiratory tract symptoms 3 days ago and has been progressively worsening associated with fever chills and generalized weakness and body pain. Patient also started having shortness of breath which has been progressively worsening prompting him to come to the ER. Denies any chest pain. No sick contacts. No nausea vomiting or diarrhea. Patient also has complaining of pain in right lower extremity. No history of trauma. Patient was assessed in the ER and was found to have hypoxia with saturation of 86 and slow mentation. ABG was consistent with hypercapnic hypoxic respiratory failure and was placed on a BiPAP. And patient's mentation is improving. He is being admitted for further management Allergies No Known Allergies Allergy (Verified 12/17/11 00:33) Home medications list reviewed: Yes Home Medications: Testosterone Cypionate [Testone Cik] 200 mg IM Q5D 04/30/20 Aspirin [Aspirin EC 81 MG] 81 mg PO DAILY #30 tablet. 05/01/20 Amlodipine [Norvasc] 2.5 mg PO DAILY #30 tab 05/02/20 Azithromycin [Zithromax] 500 mg PO DAILY #4 tablet 05/02/20 - Past Medical/Surgical History Diabetic: No Past Medical History: Reviewed- Non-Contributory -: Hypertension -: Chronic back pain -: Obesity Past Surgical History: Reviewed- Non-Contributory -: right ankle -: Hernia Repair -: Abdominal - unknown - Family History Family History: Reviewed- Non-Contributory - Family History Father -: Diabetes Mother -: Cancer - Social History Smoking Status: Current some day smoker Alcohol use: Yes CD- Drugs: Yes Caffeine use: Yes Review of Systems 10-point ROS is otherwise unremarkable General: Fever, Weakness Eyes: Unremarkable ENT: Unremarkable Respiratory: Cough, Shortness of Breath, SOB with Excertion, Wheezing Cardiovascular: Orthopnea, Unremarkable Gastrointestinal: Unremarkable Genitourinary: Unremarkable Musculoskeletal: Unremarkable Integumentary: Unremarkable Neurological: Unremarkable Physical Examination - Vital Signs Temperature: 98.8 F Blood Pressure: 142/78 Pulse: 95 Respirations: 18 Pulse Ox (%): 96 - Physical Exam General: Alert, Oriented x3, Moderate distress, Obese HEENT: Atraumatic, Normocephalic Neck: Supple, No Thyromegaly, No LAD Respiratory: Diminished, Crackles/rales, Expiratory wheezes Cardiovascular: Regular rate/rhythm, Normal S1 S2, No murmurs Capillary refill: <2 Seconds Gastrointestinal: Soft and benign, W/out hepatosplenomegaly, No ascites Musculoskeletal: No clubbing, No swelling Integumentary: No rashes, Tenderness/swelling, Erythema, Warmth Neurological: Normal strength at 5/5 x4 extr, Cranial nerves 3-12 intact, Normal reflexes 2+ Lymphatics: No axilla or inguinal lymphadenopathy - Studies Laboratory Data (last 24 hrs) 09/29/23 09/29/23 09/29/23 20:21 20:21 20:21 WBC 9.10 Hgb 13.7 Hct 42.1 Plt Count 141 L PT 12.0 INR 1.09 APTT 28.5 Sodium 132 L Potassium 5.2 H BUN 10 Creatinine 1.17 Glucose 120 H Total Bilirubin 0.6 AST 43 H ALT 45 Alkaline Phosphatase 64 09/29/23 09/29/23 09/29/23 19:43 19:43 19:43 WBC Cancelled Hgb Cancelled Hct Cancelled Plt Count Cancelled PT Cancelled INR Cancelled APTT Cancelled Sodium Cancelled Potassium Cancelled BUN Cancelled Creatinine Cancelled Glucose Cancelled Total Bilirubin Cancelled AST Cancelled ALT Cancelled Alkaline Phosphatase Cancelled Microbiology Data (last 24 hrs): 09/29/23 20:21 Nasopharnyx Influenza Type A Antigen Screen - Final 09/29/23 20:21 Nasopharnyx Influenza Type B Antigen Screen - Final Assessment and Plan - Problems (Diagnosis) (1) Acute hypoxic on chronic hypercapnic respiratory failure Current Visit: Yes Status: Acute Plan: Oxygen supplementation Saturations improving ABG findings noted with hypercapnia Patient was placed on BiPAP Start from bronchodilators (2) Metabolic encephalopathy Current Visit: No Status: Acute Plan: Acute encephalopathy metabolic Patient initially presented with decreased level of consciousness Hypercapnia noted Was placed on BiPAP Mentation improving (3) Influenza B Current Visit: Yes Status: Acute Plan: We will start on Tamiflu Supportive management Pain control and antitussives (4) Cellulitis of right lower extremity Current Visit: Yes Status: Acute Plan: Started on IV antibiotics Obtain cultures Change antibiotic as per sensitivity Pain control Elevated CRP found (5) Hyperkalemia Current Visit: Yes Status: Acute Plan: We will give a dose of Kayexalate Monitor potassium levels in a.m. (6) Hyponatremia Current Visit: Yes Status: Acute Plan: Electrolytes monitor and replace accordingly (7) Polysubstance abuse Current Visit: Yes Status: Acute Plan: Urine drug screen was noted Advised substance abuse cessation Discharge Plan: Home Plan to discharge in: Greater than 2 days - Advance Directives Does patient have a Living Will: No Does patient have a Durable POA for Healthcare: No - Code Status/Comfort Care Code Status: Full Code Time Spent Managing Pts Care (In Minutes): 48
[2023-09-30] MEDS ORDERED: SOD POLYSTYREN SUL 15 GM/60 ML UCUP PO ONE (02:14)
[2023-09-30] MEDS: IPRATROPIUM BROM 0.5MG/2.5ML NEB SCH ×4 (02:15→20:00)
[2023-09-30] MEDS ORDERED: VANCOMYCIN 1 GM in NA CHLORIDE 0.9% 250 ML IVPB SCH (02:15)
[2023-09-30] MEDS: ALBUTEROL 2.5 MG/3 ML NEB SOL NEB SCH ×4 (02:15→20:00)
[2023-09-30] MEDS ORDERED: VANCOMYCIN 1.75 GM in NA CHLORIDE 0.9% 500 ML IVPB ONE (03:00)
[2023-09-30] MEDS ORDERED: VANCOMYCIN 1 GM in NA CHLORIDE 0.9% 250 ML IVPB ONE (03:00)
[2023-09-30] MEDS ORDERED: NA CHLORIDE 0.9% 250 ML ONE (03:33)
[2023-09-30] MEDS ORDERED: SOD POLYSTYREN SUL 15 GM/60 ML UCUP ONE (03:33)
[2023-09-30] MEDS ORDERED: VANCOMYCIN 1 GM/VIAL ONE ×2 (03:33→20:32)
[2023-09-30 03:47] VITALS: BMI 40.1
[2023-09-30] MEDS ORDERED: ALBUTEROL 2.5 MG/3 ML NEB SOL ONE ×2 (08:03→13:48)
[2023-09-30] MEDS ORDERED: IPRATROPIUM BROM 0.5MG/2.5ML ONE ×2 (08:03→13:48)
[2023-09-30] MEDS ORDERED: FUROSEMIDE 40 MG/4 ML VIAL IV ONE (08:30)
[2023-09-30] MEDS ORDERED: OSELTAMIVIR 75 MG CAP PO ONE (08:42)
[2023-09-30] MEDS ORDERED: CEFTRIAXONE 1000 MG/VIAL ONE (08:42)
[2023-09-30] MEDS ORDERED: FUROSEMIDE 40 MG/4 ML VIAL ONE (08:42)
[2023-09-30] MEDS ORDERED: ASPIRIN EC 81 MG TAB PO ONE (08:42)
[2023-09-30] MEDS ORDERED: AMLODIPINE 5 MG TAB ONE (08:42)
[2023-09-30] MEDS ORDERED: NA CHLORIDE 0.9% 50 ML ONE (08:43)
[2023-09-30] MEDS ORDERED: ENOXAPARIN 40 MG/0.4 ML SQ ONE (08:43)
[2023-09-30] MEDS: ASPIRIN EC 81 MG TAB PO SCH (08:49)
[2023-09-30] MEDS: CEFTRIAXONE 1,000 MG in NA CHLORIDE 0.9% 50 ML IVPB SCH (08:50)
[2023-09-30] MEDS: AMLODIPINE 2.5 MG TAB PO SCH (08:50)
[2023-09-30] MEDS: OSELTAMIVIR 75 MG CAP PO SCH ×2 (08:53→19:49)
[2023-09-30] MEDS ORDERED: ENOXAPARIN 40 MG/0.4 ML SQ SCH (09:00)
[2023-09-30 09:48] LABS: Specific Gravity 1.029 (1.005-1.030); Urine Bacteria None Seen /HPF (<20); Urine Bilirubin NEGATIVE (Negative); Urine Blood Trace (Negative); Urine Clarity Clear (Clear); Urine Color Yellow (Yellow); Urine Glucose TRACE (Negative); Urine Mucus Slight /HPF (None Seen); Urine Protein NEGATIVE (Negative); Urine Urobilinogen Normal (Normal)
[2023-09-30] MEDS: VANCOMYCIN 2 GM in NA CHLORIDE 0.9% 500 ML IVPB SCH ×2 (09:50→20:20)
--- NOTE | 2023-09-30 09:58 | P.PN ---
Date of Service: 09/30/23 Subjective: Mental status improving overnight Off BiPAP today-satting well on room air Reports feeling unwell over the course of the last 1 week Reports taking benzodiazepines last night ROS: 10 point ROS as noted above, otherwise negative Physical exam GEN: Alert, oriented, NAD HEENT: Normal conjunctiva, sclera anicteric CV: Regular rate and rhythm, 2+ pitting edema lower extremities bilaterally Pulm: Nonlabored respirations on room air ABD: Soft, nontender, nondistended MSK: No joint tenderness Integumentary: No rashes Neuro: Normal speech, normal affect Vitals reviewed Problem List Acute hypoxic/hypercapnic respiratory failure Influenza B Metabolic encephalopathy/toxic metabolic encephalopathy Quesionable cellulitis RLE Hypoxic/hypercapnic respiratory failure likely secondary to polysubstance abuse, influenza Mental status has improved today, off BiPAP. Tolerating room air currently Continue Tamiflu, on IV antibiotics currently for possible cellulitis of lower extremity Counseled on need for cessation from alcohol, other substances Continue IV abx for now, follow blood cultures NSTEMI Peripheral edema Reports lower extremity edema for about a year Denies any known history of CHF Last echocardiogram 2019 shows normal EF Obtain echo, cardiology consult Given dose of lasix IV VTE: Lovenox Code: Full Dispo: 48-72 hours Time Spent Managing Pts Care (In Minutes): 35
--- NOTE | 2023-09-30 11:14 | P.CNS ---
Date of Consult: 09/30/23 Reason for Consult: elevated troponin Requesting Physician: Bryson Pacheco Primary Care Provider: Germán Chief Complaint: SOB History of Present Illness: Mr. Tobias is a 42yo obese patient with a history of hypertension who had been feeling poorly x 1 week with cough, bodyaches, and URI type symptoms. He presented to the ED last pm confused, hypoxic, hypercapneic. He necessitated bi- pap and was admitted to medicine. His troponin returned at 224.3 and Cardiology was consulted. Allergies No Known Allergies Allergy (Verified 12/17/11 00:33) Home medications list reviewed: Yes Home Medications: Testosterone Cypionate [Testone Cik] 200 mg IM Q5D 04/30/20 Aspirin [Aspirin EC 81 MG] 81 mg PO DAILY #30 tablet. 05/01/20 Amlodipine [Norvasc] 2.5 mg PO DAILY #30 tab 05/02/20 Azithromycin [Zithromax] 500 mg PO DAILY #4 tablet 05/02/20 - Past Medical/Surgical History Diabetic: No -: Hypertension -: Chronic back pain -: Obesity -: right ankle -: Hernia Repair -: Abdominal - unknown - Family History Father Medical History: Hypertension, Diabetes, Cancer Mother Medical History: Cancer - Social History Smoking Status: Smoker current status UNK (polysubstance abuse) Alcohol use: Yes CD- Drugs: Yes Caffeine use: Yes Place of Residence: Home (with Mom and his two children) Review of Systems General: As per HPI Eyes: Unremarkable ENT: Unremarkable Respiratory: Cough, Shortness of Breath Cardiovascular: Paroxysmal Noc. Dyspnea, Edema Gastrointestinal: Unremarkable Genitourinary: Unremarkable Neurological: Unremarkable Lymphatics: Unremarkable Physical Examination Temp Pulse Resp BP Pulse Ox 97.8 F 73 20 136/61 100 09/30/23 08:00 09/30/23 08:50 09/30/23 08:00 09/30/23 08:50 09/30/23 08:00 General: Alert, In no apparent distress, Oriented x3, Obese HEENT: Atraumatic, Normocephalic, PERRLA Neck: Supple, 2+ carotid pulse no bruit Respiratory: Clear to auscultation bilaterally Cardiovascular: Other (right left greater than left), Edema Capillary refill: <2 Seconds Gastrointestinal: Normal bowel sounds, Soft and benign Musculoskeletal: No clubbing Integumentary: Erythema, Warmth, Other (right lower ext) Neurological: Normal speech, Normal tone Lymphatics: No axilla or inguinal lymphadenopathy External genitalia: Deferred Rectal: Deferred Laboratory Data (last 24 hrs) 09/29/23 09/29/23 09/29/23 20:21 20:21 20:21 WBC 9.10 Hgb 13.7 Hct 42.1 Plt Count 141 L PT 12.0 INR 1.09 APTT 28.5 Sodium 132 L Potassium 5.2 H BUN 10 Creatinine 1.17 Glucose 120 H Total Bilirubin 0.6 AST 43 H ALT 45 Alkaline Phosphatase 64 09/29/23 09/29/23 09/29/23 19:43 19:43 19:43 WBC Cancelled Hgb Cancelled Hct Cancelled Plt Count Cancelled PT Cancelled INR Cancelled APTT Cancelled Sodium Cancelled Potassium Cancelled BUN Cancelled Creatinine Cancelled Glucose Cancelled Total Bilirubin Cancelled AST Cancelled ALT Cancelled Alkaline Phosphatase Cancelled - Problems (1) Elevated troponin Current Visit: Yes Status: Acute Plan: Trend troponin levels Echo, daily aspirin 81mg, given lovenox in ED will trend troponins and if continued elevation will keep NPO post MN, and start a heparin drip for possible cath in am Right lower ext more edematous than left, Pt had CT with contrast of Chest, abdomen, pelvis but not timed to rule out PE Right lower ext venous US (2) Hypertension Current Visit: Yes Status: Acute Plan: Take amlodipine at home will talk to medicine about switching to metoprolol while here. Pt is influenza positive and receiving neb treatments so HR may otherwise trend high Qualifiers: Hypertension type: primary hypertension Qualified Code(s): I10 - Essential (primary) hypertension Conclusions/Impression: 42 yo obese hypertensive patient with polysubstance abuse, influenza, probable sleep apnea, and elevated troponin Critical Care: No
[2023-09-30] MEDS ORDERED: INFLUENZA VACCINE (for 6+ mo) 0.5 ML DOSE IMVAC ONE (12:00)
--- NOTE | 2023-09-30 12:22 | RAD REPORT ---
EXAM DESCRIPTION: [facility] 12:02 pm CLINICAL HISTORY: Right leg swelling. COMPARISON: None. FINDINGS: Echogenic material consistent with acute thrombus is present within the right popliteal an d right posterior tibial veins. There is little blood flow. The veins are mostly noncompressible Right common femoral, superficial femoral, and greater saphenous, popliteal and right posterior tibia l veins are compressible and demonstrate augmentation. Doppler demonstrates good flow. Grayscale, color and spectral analysis performed on all vessels IMPRESSION: Acute thrombus right popliteal and right posterior tibial veins
--- NOTE | 2023-09-30 12:49 | P.PN ---
Date of Service: 09/30/23 Right lower ext US shows + acute thrombus to right popliteal and right posterior tibialis. Will give 500ml NS bolus and re-CT for PE given s/s. Heparin PE/DVT protocol ordered.
[2023-09-30] MEDS ORDERED: HEPARIN/D5W 25,000 UNIT/500 ML BAG IV PRN ×2 (13:00→20:00)
[2023-09-30] MEDS ORDERED: NA CHLORIDE 0.9% 500 ML IV ONE (13:07)
--- NOTE | 2023-09-30 14:10 | RAD REPORT ---
EXAM DESCRIPTION: CT - Chest For Pe Angio - 09/30/2023 1:25 pm CLINICAL HISTORY: acute DVT, dyspnea, elevated trop COMPARISON: Chest Abd Pelvis Wo Con dated 08/13/2020 TECHNIQUE: Thin axial CT images of the chest were obtained following administration of 100 mL Isovue 370 IV contrast. Multiplanar reconstructions, and maximum intensity projection reconstructions were generated and reviewed. Exam utilizes a protocol for optimal evaluation of pulmonary arterial tree. All CT scans are performed using dose optimization technique as appropriate and may include automated exposure control or mA/KV adjustment according to patient size. FINDINGS: Pulmonary arteries are normal. No emboli or other suspicious finding. No acute or signific ant aorta findings. Medial right lower lobe confluent sub solid and ground-glass nodularity, see axial image 41/105 among others. No other suspicious mass or infiltrate in the lung parenchyma. No pleural thickening or pleu ral effusion. No pneumothorax. No abnormal mediastinal or hilar masses or lymphadenopathy seen. No chest wall mass or abnormal axill iary lymphadenopathy. IMPRESSION: No evidence of acute central pulmonary emboli. Medial right lower lobe confluent sub solid and ground-glass nodularity, may reflect early pneumoniti s or aspiration. Please correlate clinically.
[2023-09-30] MEDS ORDERED: VANCOMYCIN 2 GM in NA CHLORIDE 0.9% 500 ML IVPB SCH (15:00)
[2023-09-30] MEDS ORDERED: NA CHLORIDE 0.9% 500 ML ONE ×2 (17:33→20:32)
[2023-09-30 18:34] LABS: Hematocrit 38.5 % (39.6-49.0); MCV 95.3 fL (80-100); MPV 7.1 fL (7.6-11.3); Platelets 131 thou/uL (152-406); RBC Red Blood Cell Count 4.03 M/uL (4.33-5.43)
[2023-09-30 18:52] LABS: Albumin 2.7 g/dL (3.4-5.0); Bilirubin Total 0.4 mg/dL (0.2-1.0); Potassium 3.5 mEq/L (3.5-5.1); Protein, Total 6.4 g/dL (6.4-8.2)
[2023-09-30] MEDS: HYDROCODONE/APAP 5/325 MG TAB PO PRN (19:49)
[2023-10-01 01:09] LABS: Absolute Lymphocytes (CBC) 1.4 K/uL (0.7-4.9); Hematocrit 38.5 % (39.6-49.0); Lymphocytes % 32.7 % (15.3-44.8); MCV 95.1 fL (80-100); MPV 7.2 fL (7.6-11.3); Platelets 122 thou/uL (152-406); RBC Red Blood Cell Count 4.05 M/uL (4.33-5.43)
[2023-10-01] MEDS: IPRATROPIUM BROM 0.5MG/2.5ML NEB SCH ×3 (01:22→13:24)
[2023-10-01] MEDS: ALBUTEROL 2.5 MG/3 ML NEB SOL NEB SCH ×3 (01:22→13:24)
[2023-10-01 01:31] LABS: Albumin 2.5 g/dL (3.4-5.0); Bilirubin Total 0.3 mg/dL (0.2-1.0); Potassium 3.7 mEq/L (3.5-5.1); Protein, Total 5.9 g/dL (6.4-8.2)
[2023-10-01] MEDS: HYDROCODONE/APAP 5/325 MG TAB PO PRN (06:46)
--- NOTE | 2023-10-01 08:25 | P.PN ---
Subjective Date of Service: 10/01/23 Primary Care Provider: Germán Chief Complaint: SOB Subjective: No new changes, Improving Review of Systems 10-point ROS is otherwise unremarkable Respiratory: As per HPI Cardiovascular: Other (denies CP) Physical Examination - Vital Signs Temperature: 98.4 F Blood Pressure: 139/79 Pulse: 73 Respirations: 20 Pulse Ox (%): 98 - Physical Exam General: Oriented x3 HEENT: Atraumatic, Normocephalic Neck: Supple, 2+ carotid pulse no bruit Respiratory: Crackles/rales Cardiovascular: No edema, Normal pulses Capillary refill: <2 Seconds Gastrointestinal: Normal bowel sounds, Soft and benign Musculoskeletal: No clubbing, No swelling Integumentary: No rashes Neurological: Normal speech, Normal tone Lymphatics: No axilla or inguinal lymphadenopathy External genitalia: Deferred Assessment And Plan - Current Problems (Diagnosis) (1) Elevated troponin Current Visit: Yes Status: Acute Plan: Trend troponin levels Echo, daily aspirin 81mg, given lovenox in ED will trend troponins and if continued elevation will keep NPO post MN, and start a heparin drip for possible cath in am Right lower ext more edematous than left, Pt had CT with contrast of Chest, abdomen, pelvis but not timed to rule out PE Right lower ext venous US 10/01/23 - Troponins negative, Pulmonary Embolus negative, Right lower ext DVT +,so patient continues on Heparin drip, medicine to follow (2) Hypertension Current Visit: Yes Status: Acute Plan: Take amlodipine at home will talk to medicine about switching to metoprolol while here. Pt is influenza positive and receiving neb treatments so HR may otherwise trend high Qualifiers: Hypertension type: primary hypertension Qualified Code(s): I10 - Essential (primary) hypertension
[2023-10-01] MEDS: VANCOMYCIN 2 GM in NA CHLORIDE 0.9% 500 ML IVPB SCH (09:00)
[2023-10-01] MEDS: AMLODIPINE 2.5 MG TAB PO SCH (09:23)
[2023-10-01] MEDS: ASPIRIN EC 81 MG TAB PO SCH (09:23)
[2023-10-01] MEDS: OSELTAMIVIR 75 MG CAP PO SCH (09:23)
[2023-10-01] MEDS: CEFTRIAXONE 1,000 MG in NA CHLORIDE 0.9% 50 ML IVPB SCH (09:24)
[2023-10-01] MEDS ORDERED: APIXABAN 5 MG TABLET PO SCH ×2 (10:00→21:00)
[2023-10-01] MEDS ORDERED: AMOX/K CLAV 875 MG TAB PO SCH (10:00)
--- NOTE | 2023-10-01 10:24 | P.PN ---
Date of Service: 10/01/23 Subjective: Alert, oriented x4 Off BiPAP today-satting well on room air Reports feeling unwell over the course of the last 1 week ROS: 10 point ROS as noted above, otherwise negative Physical exam GEN: Alert, oriented, NAD HEENT: Normal conjunctiva, sclera anicteric CV: Regular rate and rhythm, 2+ pitting edema lower extremities bilaterally Pulm: Nonlabored respirations on room air ABD: Soft, nontender, nondistended MSK: No joint tenderness Integumentary: No rashes Neuro: Normal speech, normal affect Vitals reviewed Problem List Acute hypoxic/hypercapnic respiratory failure Influenza B Metabolic encephalopathy/toxic metabolic encephalopathy Hypoxic/hypercapnic respiratory failure likely secondary to polysubstance abuse, influenza Mental status has improved today, off BiPAP. Tolerating room air currently Continue Tamiflu, CTA chest shows poss. 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
[2023-10-01 11:01] VITALS: O2SAT 97
[2023-10-01 12:48] VITALS: BP 137/71; TEMP 97.8
--- NOTE | 2023-10-01 15:21 | P.DS ---
Admission Date: 09/30/23 Discharge Date: 10/01/23 Primary Care Provider: Germán Disposition: ROUTINE DISCHARGE Discharge Condition: GOOD Reason for Admission: SOB Consultations: Cardiology-Dr. Renee Brief History of Present Illness: 42 yrs old Male with past medical history of hypertension, anxiety, chronic back pain, obesity came in with shortness of breath . Patient started having upper respiratory tract symptoms 3 days ago and has been progressively worsening associated with fever chills and generalized weakness and body pain. Patient also started having shortness of breath which has been progressively worsening prompting him to come to the ER. Denies any chest pain. No sick contacts. No nausea vomiting or diarrhea. Patient also has complaining of pain in right lower extremity. No history of trauma. Patient was assessed in the ER and was found to have hypoxia with saturation of 86 and slow mentation. ABG was consistent with hypercapnic hypoxic respiratory failure and was placed on a BiPAP. And patient's mentation is improving. He is being admitted for further management Hospital Course: Problem list Acute hypoxic/hypercapnic respiratory failure Influenza B Pneumonitis vs aspiration pneumonia Metabolic encephalopathy/toxic metabolic encephalopathy Acute right popliteal DVT NSTEMI Patient was admitted to the hospital for hypercapnic respiratory failure, influenza B, swelling of the right lower extremity. He was found to have a right popliteal acute DVT, CT of the chest showed possible early pneumonitis versus aspiration. He did not require BiPAP or supplemental oxygen after his first night in the hospital. Respiratory failure likely secondary to use of opiates/benzodiazepines in addition to his acute illness. No pulmonary embolism identified on CT. he has been on room air for the last 24 hours, feels back at his baseline. Swelling to lower extremities has improved. director of tax services provided information on discount program for Eliquis. Prescription sent for Eliquis, Augmentin, Tamiflu. Patient need to establish/follow-up with PCP within 1 to 2 weeks. Vital Signs/Physical Exam: Temp Pulse Resp BP Pulse Ox 97.8 F 57 19 137/71 97 10/01/23 12:00 10/01/23 12:00 10/01/23 12:00 10/01/23 12:00 10/01/23 12:00 General: Alert, In no apparent distress, Oriented x3 HEENT: Atraumatic, PERRLA, EOMI Neck: Supple, JVD not distended Respiratory: Clear to auscultation bilaterally, Normal air movement Cardiovascular: Regular rate/rhythm, Normal S1 S2 Gastrointestinal: Normal bowel sounds Musculoskeletal: No tenderness Integumentary: No rashes Neurological: Normal speech Laboratory Data at Discharge: WBC 4.30 thou/uL (4.3-10.9) 10/01/23 00:50 Hgb 12.9 g/dL (13.6-17.9) L 10/01/23 00:50 Hct 38.5 % (39.6-49.0) L 10/01/23 00:50 Plt Count 122 thou/uL (152-406) L 10/01/23 00:50 PT 12.0 SECONDS (9.5-12.5) 09/29/23 20:21 INR 1.09 09/29/23 20:21 APTT 50.4 SECONDS (24.3-36.9) H 10/01/23 06:55 Sodium 138 mEq/L (136-145) 10/01/23 00:50 Potassium 3.7 mEq/L (3.5-5.1) 10/01/23 00:50 BUN 11 mg/dL (7-18) 10/01/23 00:50 Creatinine 0.86 mg/dL (0.70-1.30) 10/01/23 00:50 Glucose 103 mg/dL (74-106) 10/01/23 00:50 Total Bilirubin 0.3 mg/dL (0.2-1.0) 10/01/23 00:50 AST 21 U/L (15-37) 10/01/23 00:50 ALT 32 U/L (16-61) 10/01/23 00:50 Alkaline Phosphatase 50 U/L (45-117) 10/01/23 00:50 Home Medications: Testosterone Cypionate [Testone Cik] 200 mg IM Q5D 04/30/20 Aspirin [Aspirin EC 81 MG] 81 mg PO DAILY #30 tablet.dr 05/01/20 Amox/Clavulanate [Augmentin 875-125 Tab] 875 mg PO BID 6 Days #12 tab 10/01/23 Apixaban [Eliquis] See Rx Instructions .ROUTE .COMPLEX #1 packet 10/01/23 Oseltamivir [Tamiflu] 75 mg PO BID 3 Days #6 cap 12/08/23 New Medications: Amox/Clavulanate [Augmentin 875-125 Tab] 875 mg PO BID 6 Days #12 tab Apixaban [Eliquis] See Rx Instructions .ROUTE .COMPLEX #1 packet Oseltamivir [Tamiflu] 75 mg PO BID 3 Days #6 cap Physician Discharge Instructions: Patient was admitted to the hospital for hypercapnic respiratory failure, influenza B, swelling of the right lower extremity. He was found to have a right popliteal acute DVT, CT of the chest showed possible early pneumonitis versus aspiration. He did not require BiPAP or supplemental oxygen after his first night in the hospital. Respiratory failure likely secondary to use of opiates/benzodiazepines in addition to his acute illness. No pulmonary embolism identified on CT. he has been on room air for the last 24 hours, feels back at his baseline. Swelling to lower extremities has improved. director of tax services provided information on discount program for Eliquis. Prescription sent for Eliquis, Augmentin, Tamiflu. Patient need to establish/follow-up with PCP within 1 to 2 weeks. Diet: AHA Activity: Ad maritza Followup: NONE,NONE [Primary Care Provider] - 1 Week Time spent managing pt's care (in minutes): 30
--- NOTE | 2023-10-04 08:49 | ECHO ---
HEIGHT: 6 ft 4 in WEIGHT: 330 lb 0 oz DATE OF STUDY: 09/30/[address]: Robert Su NP 2-DIMENSIONAL: YES M.MODE: YES DOPPLER: YES COLOR FLOW: YES TDS: PORTABLE: YES DEFINITY: BUBBLE STUDY: DIAGNOSIS: ELEVATED TROPONIN, PITTING EDEMA CARDIAC HISTORY: CATHERIZATION: NO SURGERY: NO PROSTHETIC VALVE: NO PACEMAKER: NO MEASUREMENTS (cm) DIASTOLIC (NORMALS) SYSTOLIC (NORMALS) IVSd 1.4 (0.6-1.2) LA Diam 3.3 (1.9-4.0) LVEF 54% LVIDd 4.7 (3.5-5.7) LVIDs 3.4 (2.0-3.5) %FS 28% LVPWd 1.4 (0.6-1.2) Ao Diam 3.2 (2.0-3.7) 2 DIMENSIONAL ASSESSMENT: RIGHT ATRIUM: NORMAL LEFT ATRIUM: NORMAL RIGHT VENTRICLE: NORMAL LEFT VENTRICLE: LEFT VENTRICULAR HYPERTROPHY TRICUSPID VALVE: NORMAL MITRAL VALVE: NORMAL PULMONIC VALVE: NORMAL AORTIC VALVE: NORMAL PERICARDIAL EFFUSION: NONE AORTIC ROOT: NORMAL LEFT VENTRICULAR WALL MOTION: NORMAL DOPPLER/COLOR FLOW: SEE BELOW COMMENTS: 1. NORMAL LEFT VENTRICULAR EJECTION FRACTION 55-60% 2. NORMAL WALL MOTION 3. NORMAL DIASTOLIC FUNCTION 4. MILD CONCENTRIC LEFT VENTRICULAR HYPERTROPHY TECHNOLOGIST: CHANCE MINA
--- NOTE | 2023-10-05 14:05 | EKG ---
Test Date: 2023-09-29 Test Time: 20:49:13 [employer]: MEASUREMENT RESULTS: Intervals: Rate: 96 FL: 138 QRSD: 90 QT: 330 QTc: 416 [place]: P: 53 FL: 138 QRS: 27 T: 43 INTERPRETIVE STATEMENTS: Normal sinus rhythm Normal ECG Compared to ECG 05/07/2023 15:46:03 Sinus bradycardia no longer present Sinus arrhythmia no longer present Electronically Signed On 10-05-23 13:46:[address] ENGINEERING TEACHER by Romel Renee
[2023-10-08] MEDS ORDERED: APIXABAN 5 MG TABLET PO SCH (09:00)
== END 2023-10-01 17:39 | disposition home or self-care (01) | DRG 177 ==
LOC: ER 19:38 → ERHOLD 09-30 00:11 → 4TH 09-30 16:32
PROVIDERS: ADMIT Family Medicine; ATTEND Hospitalist
PROC: 5A09357 Assistance with Respiratory Ventilation, Less than 24 Consecutive Hours, Continuous Positive Airway Pressure (ICD-10-PCS; principal; 2023-09-29)
DX: J69.0 Pneumonitis due to inhalation of food and vomit (principal); G92.8 Other toxic encephalopathy; J96.21 Acute and chronic respiratory failure with hypoxia; I21.4 Non-ST elevation (NSTEMI) myocardial infarction; J96.22 Acute and chronic respiratory failure with hypercapnia; Z68.41 Body mass index [BMI] 40.0-44.9, adult; E87.1 Hypo-osmolality and hyponatremia; I82.431 Acute embolism and thrombosis of right popliteal vein; I82.441 Acute embolism and thrombosis of right tibial vein; J10.08 Influenza due to other identified influenza virus with other specified pneumonia; E66.9 Obesity, unspecified; I10 Essential (primary) hypertension; E87.5 Hyperkalemia; F14.10 Cocaine abuse, uncomplicated; F19.10 Other psychoactive substance abuse, uncomplicated; G89.29 Other chronic pain; M54.9 Dorsalgia, unspecified; F17.200 Nicotine dependence, unspecified, uncomplicated; T42.4X5A Adverse effect of benzodiazepines, initial encounter; Z11.52 Encounter for screening for COVID-19; Z79.82 Long term (current) use of aspirin; Z71.41 Alcohol abuse counseling and surveillance of alcoholic; Z79.899 Other long term (current) drug therapy; Y90.0 Blood alcohol level of less than 20 mg/100 ml
CPT/HCPCS: 36415; 36600; 71045; 71260; 71275; 74177; 80053; 80202; 80307; 81001; 82077; 82805; 83605; 83880; 84484; 85025; 85027; 85610; 85730; 86140; 87040; 87804; 87811; 93005; 93306; 93971; 94640; 94660; 94760; 96365; 96375; 99285; J0692; J0696; J1644; J1650; J1940; J7030; J7040; J7050; J7613; J7644; Q9967

== ENCOUNTER → 2023-11-22 | Emergency (ER) | payer SELFPAY ==
[~2023-11-22] MED LIST: ENOXAPARIN 80 MG/0.8 ML SQ ONE; FUROSEMIDE 40 MG/4 ML VIAL ONE
[2023-11-23 01:44] LABS: Protime INR 1.01
[2023-11-23 01:46] LABS: Absolute Lymphocytes (CBC) 1.9 K/uL (0.7-4.9); Hematocrit 44.3 % (39.6-49.0); MCV 94.7 fL (80-100); MPV 7.2 fL (7.6-11.3); Platelets 213 thou/uL (152-406); RBC Red Blood Cell Count 4.68 M/uL (4.33-5.43)
[2023-11-23 01:48] LABS: ALT/SGPT 56 U/L (16-61); AST/SGOT 27 U/L (15-37); Albumin 3.1 g/dL (3.4-5.0); Alkaline Phosphatase 66 U/L (45-117); BUN Blood Urea Nitrogen 6 mg/dL (7-18); Bicarbonate 30 mEq/L (21-32); Bilirubin Total 0.2 mg/dL (0.2-1.0); Glomerular Filtration Rate 109 ml/min (=/>90); Glucose Level 104 mg/dL (74-106); Magnesium 1.9 mg/dL (1.6-2.4); NT PRO-BNP 107 pg/mL (<125); Potassium 4.1 mEq/L (3.5-5.1); Protein, Total 6.7 g/dL (6.4-8.2); Sodium Level 135 mEq/L (136-145); Troponin High Sensitivity 10.4 pg/mL (<58.9)
[2023-11-23 01:55] LABS: Bilirubin Direct < 0.1 mg/dL (0-0.2); Bilirubin Indirect, Calculated ND mg/dL (0.2-0.8)
--- NOTE | 2023-11-23 07:00 | ER ---
Nurse's Notes [facility] Name: Jatinder Scott Age: 42 yrs Sex: Male : 1980 Arrival Date: 11/22/2023 Time: 23:47 Bed 4 Private MD: Diagnosis: Edema, unspecified;Right popliteal vein DVT, bilateral lower extremity edema with pitting , lateral scrotal edema, generalized edema. Presentation: 11/22 23:57 Chief complaint: Patient states: Pt c/o edema to scrotum since yesterday. Pt also c/o tl4 bilateral lower leg edema x months. Pt states he feels like he has blood clots in his feet again. Pt is prescribed eliquis but has not taken it for 5 days. Coronavirus screen: Vaccine status: Patient reports being unvaccinated. Ebola Screen: Patient negative for fever greater than or equal to 101.5 degrees Fahrenheit, and additional compatible Ebola Virus Disease symptoms Patient denies exposure to infectious person. Patient denies travel to an Ebola-affected area in the 21 days before illness onset. No symptoms or risks identified at this time. Initial Sepsis Screen: Does the patient meet any 2 criteria? No. Patient's initial sepsis screen is negative. Does the patient have a suspected source of infection? No. Patient's initial sepsis screen is negative. Risk Assessment: Do you want to hurt yourself or someone else? Patient reports no desire to harm self or others. Onset of symptoms was November 21, 2023. 23:57 Method Of Arrival: Ambulatory tl4 23:57 Acuity: JAYLEEN 3 tl4 Triage Assessment: 11/23 00:01 General: Appears uncomfortable, Behavior is calm, cooperative. Pain: Complains of pain tl4 in scrotum and right leg. EENT: No deficits noted. No signs and/or symptoms were reported regarding the EENT system. Neuro: No deficits noted. Cardiovascular: Denies chest pain, diaphoresis, lightheadedness, palpitations, syncope. Respiratory: No deficits noted. Denies cough, shortness of breath. GI: No deficits noted. No signs and/or symptoms were reported involving the gastrointestinal system. : No deficits noted. No signs and/or symptoms were reported regarding the genitourinary system. 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 - Social history:: Smoking status: Patient reports use of chewing tobacco. - Family history:: not pertinent. Screenin:17 [facility] ED Fall Risk Assessment (Adult) History of falling in the last 3 months, jw7 including since admission No falls in past 3 months (0 pts) Score/Fall Risk Level 0 - 2 = Low Risk Oriented to surroundings, Maintained a safe environment, Educated pt \T\ family on fall prevention, incl call for assistance when getting out of bed. Abuse screen: Denies threats or abuse. Denies injuries from another. Nutritional screening: No deficits noted. Tuberculosis screening: No symptoms or risk factors identified. Assessment: 00:15 General: See Triage Assessment . jw7 01:30 Reassessment: Patient appears in no apparent distress at this time. No changes from 7 previously documented assessment. Patient and/or family updated on plan of care and expected duration. Pain level reassessed. Patient is alert, oriented x 3, equal unlabored respirations, skin warm/dry/pink. 02:25 Reassessment: Patient appears in no apparent distress at this time. No changes from jw7 previously documented assessment. Patient and/or family updated on plan of care and expected duration. Pain level reassessed. Patient is alert, oriented x 3, equal unlabored respirations, skin warm/dry/pink. 03:30 Reassessment: Patient appears in no apparent distress at this time. No changes from jw7 previously documented assessment. Patient and/or family updated on plan of care and expected duration. Pain level reassessed. Patient is alert, oriented x 3, equal unlabored respirations, skin warm/dry/pink. 04:45 Reassessment: Patient appears in no apparent distress at this time. Patient and/or jw7 family updated on plan of care and expected duration. Pain level reassessed. Patient is alert, oriented x 3, equal unlabored respirations, skin warm/dry/pink. 05:59 Reassessment: Patient appears in no apparent distress at this time. No changes from jw7 previously documented assessment. Patient and/or family updated on plan of care and expected duration. Pain level reassessed. Patient is alert, oriented x 3, equal unlabored respirations, skin warm/dry/pink. Vital Signs: 11/22 23:57 BP 132 / 81; Pulse 89; Resp 18; Temp 98.1; Pulse Ox 97% on R/A; Weight 149.69 kg; tl4 Height 6 ft. 4 in. ; Pain 7/10; 11/23 00:30 BP 125 / 80; Pulse 75; Resp 16 S; Pulse Ox 99% on R/A; jw7 01:30 BP 135 / 82; Pulse 77; Resp 15 S; Pulse Ox 100% on R/A; jw7 02:30 BP 122 / 73; Pulse 78; Resp 15 S; Pulse Ox 100% on R/A; jw7 03:30 BP 124 / 64; Pulse 76; Resp 16 S; Pulse Ox 100% on R/A; jw7 04:30 BP 122 / 74; Pulse 76; Resp 15 S; Pulse Ox 100% on R/A; jw7 06:03 BP 123 / 53; Pulse 60; Resp 16 S; Pulse Ox 100% on R/A; jw7 07:23 BP 126 / 60; Pulse 72; Resp 18; Pulse Ox 100% on R/A; Pain 4/10; ld1 11/22 23:57 Body Mass Index 40.17 (149.69 kg, 193.04 cm) tl4 11/22 23:57 Pain Scale: Adult tl4 07:23 Pain Scale: Adult ld1 ED Course: 11/22 23:52 Patient arrived in ED. tl4 11/23 00:00 Triage completed. tl4 00:02 Denys Hunter PA is PHCP. cp 00:02 Mkie Tsai MD is Attending Physician. cp 00:02 Arm band placed on right wrist. tl4 00:46 XRAY Chest (1 view) In Process Unspecified. EDMS 01:13 Inserted saline lock: 20 gauge in right antecubital area, using aseptic technique. mc5 Blood collected. 01:17 Patient has correct armband on for positive identification. Placed in gown. Bed in low jw7 position. Call light in reach. 01:44 EKG done, by ED staff, reviewed by Denys DIOP. jw7 02:53 US Scrotum Testicles In Process Unspecified. EDMS 02:53 US Extremity Venous W Compression Tuan In Process Unspecified. EDMS 06:59 Prezas, Randolph, DO is Referral Physician. sp4 07:22 No provider procedures requiring assistance completed. IV discontinued, intact, ld1 bleeding controlled, No redness/swelling at site. Administered Medications: 03:30 Drug: Furosemide IVP 40 mg IVP once; give over 2 minutes Route: IVP; Site: right jw7 antecubital; 06:56 Follow up: Response: No adverse reaction jw7 05:25 Drug: Enoxaparin Sub-Q 150 mg Sub-Q once Route: Sub-Q; Site: abdomen; jw7 06:56 Follow up: Response: No adverse reaction jw7 Medication: 07:23 VIS not applicable for this client. ld1 Outcome: 06:59 Discharge ordered by . sp4 07:22 Discharged to home ambulatory, ld1 07:22 Condition: stable 07:22 Discharge instructions given to patient, Instructed on discharge instructions, follow up and referral plans. medication usage, Demonstrated understanding of instructions, follow-up care, medications, Prescriptions given X 3, 07:23 Patient left the ED. ld1 Signatures: Dispatcher [employer] EDDC Denys Hunter PA PA cp Sims, Lauren, RN RN ld1 Martha Frausto RN RN jw7 Mike Tsai MD MD sp4 Angelic Amin 5 Norberto Contreras 4
--- NOTE | 2023-11-23 07:00 | EDPHYS ---
Physician Documentation [facility] Name: Jatinder Scott Age: 42 yrs Sex: Male : 1980 Arrival Date: 11/22/2023 Time: 23:47 Bed 4 Private MD: ED Physician Mike Tsai HPI: 11/23 00:35 This 42 yrs old Male presents to ER via Ambulatory with complaints of Edema. cp 00:35 The patient presents with pain, that is acute, swelling, tenderness. The complaints cp affect the right leg and left leg. Context: the patient can fully bear weight, the patient is able to ambulate, with moderate difficulty, patient reports history of DVT. Onset: The symptoms/episode began/occurred yesterday, and became worse today. 06:55 Patient was managed here on 09/30/2023 and was discharged. Patient was managed for sp4 influenza B, respiratory failure, pneumonitis, metabolic encephalopathy, right popliteal DVT, and NSTEMI. Patient was discharged on Eliquis p.o. but states he cannot afford it.. 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 - Social history:: Smoking status: Patient reports use of chewing tobacco. - Family history:: not pertinent. ROS: 00:40 Constitutional: Negative for fever, poor PO intake, cp 00:40 Cardiovascular: Positive for edema, Negative for chest pain, palpitations, cp 00:40 Respiratory: Negative for cough, wheezing, 00:40 Abdomen/GI: Negative for abdominal pain, 06:52 Constitutional: Negative for fever, chills, and weight loss, bilateral lower extremity sp4 edema, positive scrotal edema Exam: 00:45 Constitutional: The patient appears in no acute distress, alert, awake, cp non-diaphoretic, non-toxic, well developed, well nourished, obese, uncomfortable, 00:45 Head/Face: Normocephalic, atraumatic. cp 01:38 ECG was reviewed by the Attending Physician. cp 06:52 Constitutional: This is a well developed, well nourished patient who is awake, alert, sp4 and in no acute distress. Eyes: Pupils equal round and reactive to light, extra-ocular motions intact. Lids and lashes normal. Conjunctiva and sclera are not injected. Cornea within normal limits. Periorbital areas with no swelling, redness, or edema. ENT: Nares patent. No nasal discharge, no septal abnormalities noted. Tympanic membranes are normal and external auditory canals are clear. Oropharynx with no redness, swelling, or masses, exudates, or evidence of obstruction, uvula midline. Mucous membranes moist. Neck: Trachea midline, no thyromegaly or masses palpated, and no cervical lymphadenopathy. Supple, full range of motion without nuchal rigidity, or vertebral point tenderness. Chest/axilla: Normal chest wall appearance and motion. Nontender with no deformity. No lesions are appreciated. Cardiovascular: Regular rate and rhythm with a normal S1 and S2. No gallops, murmurs, or rubs. Normal PMI, no JVD. No pulse deficits. Respiratory: Lungs have equal breath sounds bilaterally, clear to auscultation and percussion. No rales, rhonchi or wheezes noted. No increased work of breathing, no retractions or nasal flaring. Abdomen/GI: Soft, non-tender, with normal bowel sounds. No distension or tympany. No guarding or rebound. No evidence of tenderness throughout. Back: No spinal tenderness. No costovertebral tenderness. Male : Normal genitalia with no discharge or lesions. Mild to moderate scrotal edema without signs resolved infectious cellulitis Skin: Warm, dry with normal turgor. Normal color with no rashes, no lesions, and no evidence of cellulitis. MS/ Extremity: Pulses equal, no cyanosis. Neurovascular intact. Full, normal range of motion. Neuro: Awake and alert, GCS 15, oriented to person, place, time, and situation. Cranial nerves II-XII grossly intact. Motor strength 5/5 in all extremities. Sensory grossly intact. Psych: Awake, alert, with orientation to person, place and time. Behavior, mood, and affect are within normal limits Vital Signs: 11/22 23:57 BP 132 / 81; Pulse 89; Resp 18; Temp 98.1; Pulse Ox 97% on R/A; Weight 149.69 kg; tl4 Height 6 ft. 4 in. ; Pain 7/10; 11/23 00:30 BP 125 / 80; Pulse 75; Resp 16 S; Pulse Ox 99% on R/A; jw7 01:30 BP 135 / 82; Pulse 77; Resp 15 S; Pulse Ox 100% on R/A; jw7 02:30 BP 122 / 73; Pulse 78; Resp 15 S; Pulse Ox 100% on R/A; jw7 03:30 BP 124 / 64; Pulse 76; Resp 16 S; Pulse Ox 100% on R/A; jw7 04:30 BP 122 / 74; Pulse 76; Resp 15 S; Pulse Ox 100% on R/A; jw7 06:03 BP 123 / 53; Pulse 60; Resp 16 S; Pulse Ox 100% on R/A; jw7 07:23 BP 126 / 60; Pulse 72; Resp 18; Pulse Ox 100% on R/A; Pain 10; ld1 11/22 23:57 Body Mass Index 40.17 (149.69 kg, 193.04 cm) tl4 11/22 23:57 Pain Scale: Adult tl4 07:23 Pain Scale: Adult ld1 MDM: 00:04 Patient medically screened. cp 04:27 Data reviewed: vital signs, nurses notes, lab test result(s), radiologic studies, sp4 ultrasound. ED course: CLINICAL HISTORY: edema COMPARISON: None. TECHNIQUE: XR CHEST 1 VIEW 11/23/2023 12:29 AM RIVER RAT FINDINGS: The heart is mildly enlarged. Lungs are clear without consolidation, atelectasis, mass or edema. There is no pleural effusion. There is no pneumothorax. There are no acute osseous findings. IMPRESSION: Clear lungs. . 04:54 ED course: . sp4 06:31 ED course: TECHNIQUE: Mcintosh-scale, color, and spectral Doppler images were obtained of sp4 the testes and scrotum. COMPARISON: None FINDINGS: Right testicle: Measures 3.1 x 2.5 x 2.7 cm. Testicular echogenicity is normal with no focal lesion. Testicular vascular flow is normal. Right epididymis: Thickened/ heterogeneous. Measures 2.8 x 1.4 x 1.4 cm. Hydrocele present. Left testicle: Measures 3.1 x 2.5 x 2.3 cm. Testicular echogenicity is normal with no focal lesion. Testicular vascular flow is normal. Left epididymis: Thickened/heterogeneous. Hydrocele present. Diffuse bilateral scrotal wall thickening and edema. IMPRESSION: 1. Preserved bilateral testicular vascular flow on Doppler. 2. Bilateral hydroceles. 3. Diffuse bilateral scrotal wall thickening and edema. 4. Nonspecific thickening and heterogeneous appearance of the bilateral epididymis. Underlying epididymitis cannot be excluded.. ED course: CLINICAL HISTORY: 42 years Male; Pain;Swelling TECHNIQUE: Spectral analysis and color/grayscale sonographic images of both legs were obtained utilizing a high-frequency linear array transducer supplemented with color Doppler, compression and augmentation techniques. COMPARISON: None. FINDINGS: Right leg veins: Common femoral: normal Greater saphenous: normal Superficial femoral: normal Popliteal: Noncompressible with echogenic material present. Diminished blood flow noted. Calf Veins: normal Left leg veins: Common femoral: normal Greater saphenous: normal Superficial femoral: normal Popliteal: normal Calf Veins: normal IMPRESSION: 1. Nonocclusive deep venous thrombosis in the right popliteal vein. 2. No sonographic evidence for left lower extremity deep venous thrombosis. . 06:51 Differential Diagnosis altered mental status, sepsis, flu. Consideration of sp4 Admission/Observation Escalation of care including admission/observation considered. 06:54 ED course: Patient's edema should be managed with Lasix p.o. 40 mg daily. Will advise sp4 propping up legs on some pillows when the resting. Will advise [id number] compression socks. Additionally will recommend low impact exercises such as walking without running. . ED course: Scrotal edema has improved after IV Lasix. Patient still has right lower extremity popliteal DVT. Patient states he cannot afford his Eliquis. . 06:55 ED course: Instead of Eliquis patient will be given a coupon for Xarelto and prescribe sp4 Xarelto 15 mg p.o. twice daily for 21 days and then 50 mg once a day for the duration.. 11/23 00:29 Order name: Basic Metabolic Panel; Complete Time: 01:56 cp 11/23 01:56 Interpretation: Normal except: NA 135; BUN 6. cp 11/23 00:29 Order name: CBC with Diff; Complete Time: 01:56 cp 11/23 01:56 Interpretation: Normal except: MPV 7.2. cp 11/23 00:29 Order name: LFT's; Complete Time: 01:56 cp 11/23 01:56 Interpretation: Normal except: ALB 3.1; GLOB 3.6; A/G 0.9. cp 11/23 00:29 Order name: Magnesium; Complete Time: 01:56 cp 11/23 01:59 Interpretation: Reviewed. cp 11/23 00:29 Order name: NT PRO-BNP; Complete Time: 01:56 cp 11/23 01:58 Interpretation: Reviewed. cp 11/23 00:29 Order name: PT-INR; Complete Time: 01:56 cp 11/23 01:59 Interpretation: Reviewed. cp 11/23 00:29 Order name: Troponin HS; Complete Time: 01:56 cp 11/23 01:59 Interpretation: Reviewed. cp 11/23 00:29 Order name: XRAY Chest (1 view) cp 11/23 01:45 Order name: US Scrotum Testicles cp 11/23 01:45 Order name: US Extremity Venous W Compression Tuan cp 11/23 00:29 Order name: EKG; Complete Time: 00:29 cp 11/23 00:29 Order name: Cardiac monitoring; Complete Time: 01:16 cp 11/23 00:29 Order name: EKG - Nurse/Tech; Complete Time: 01:44 cp 11/23 00:29 Order name: IV Saline Lock; Complete Time: 01:16 cp 11/23 00:29 Order name: Labs collected and sent; Complete Time: 01:16 cp 11/23 00:29 Order name: O2 Per Protocol; Complete Time: 01:16 cp 11/23 00:29 Order name: O2 Sat Monitoring; Complete Time: 01:16 cp EC:38 Rate is 78 beats/min. Rhythm is regular. MD interval is normal. QRS interval is normal. cp QT interval is normal. T waves are Inverted in lead aVR. Interpreted by me. Reviewed by me. Administered Medications: 03:30 Drug: Furosemide IVP 40 mg IVP once; give over 2 minutes Route: IVP; Site: right jw7 antecubital; 06:56 Follow up: Response: No adverse reaction jw7 05:25 Drug: Enoxaparin Sub-Q 150 mg Sub-Q once Route: Sub-Q; Site: abdomen; jw7 06:56 Follow up: Response: No adverse reaction jw7 Disposition: 04:54 Co-signature as Attending Physician, Mike Tsai MD I agree with the assessment sp4 and plan of care. I reviewed the patient's care provided by Advanced Practice Provider \T\ agree w/ the diagnosis \T\ care plan. I personally saw the pt \T\ performed a substantive portion of the visit, incldng all aspects of the (History/Exam/Medical Decision Making). Disposition Summary: 11/23/23 06:59 Discharge Ordered Notes: Location: Home sp4 Problem: new sp4 Symptoms: have improved sp4 Condition: Stable sp4 Diagnosis - Edema, unspecified sp4 - Right popliteal vein DVT, bilateral lower extremity edema with pitting , lateral sp4 scrotal edema, generalized edema. Followup: sp4 - With: Randolph Harmon DO - When: 7 - 10 days - Reason: Recheck today's complaints Discharge Instructions: - Discharge Summary Sheet sp4 - Deep Vein Thrombosis sp4 - Edema, [id number] sp4 Forms: - Patient Portal Instructions sp4 Prescriptions: - rivaroxaban 15 mg Oral tablet - take 1 tablet ORAL route every 24 hours Take daily; 60 tablet; Refills: 0, sp4 Product Selection Permitted - Lasix 40 mg Oral tablet - take 1 tablet ORAL route once daily for 30 days take daily; 30 tablet; Refills: sp4 0, Product Selection Permitted - Xarelto 15 mg Oral tablet - take 1 tablet ORAL route 2 times per day Take twice daily for 21 days; 42 sp4 tablet; Refills: 0, Product Selection Permitted Signatures: Dispatcher [employer] EDKS Denys Hunter PA PA cp Waits, Jodi RN RN jw7 Mike Tsai MD MD sp4 [facility]
[2023-11-23 11:38] VITALS: TEMP 98.1
[2023-11-23 11:54] VITALS: BP 126/60; O2SAT 100
--- NOTE | 2023-11-23 15:43 | RAD REPORT ---
EXAM DESCRIPTION: RAD - Chest Single View - 11/23/2023 12:45 am CLINICAL HISTORY: Edema COMPARISON: None. TECHNIQUE: XR CHEST 1 VIEW 11/23/2023 12:29 AM VAT PACKER FINDINGS: The heart is mildly enlarged. Lungs are clear without consolidation, atelectasis, mass or edema. There is no pleural effusion. There is no pneumothorax. There are no acute osseous findings. IMPRESSION: Clear lungs. Electronically signed by: Floyd Pritchard MD 11/23/2023 02:18 AM VAT PACKER Due to temporary technical issues with the PACS/Fluency reporting system, reports are being signed by the in house radiologists without review as a courtesy to insure prompt reporting. The interpreting radiologist is fully responsible for the content of the report.
--- NOTE | 2023-11-23 15:45 | RAD REPORT ---
EXAM DESCRIPTION: US - Extrem Venous W Compress Tuan - 11/23/2023 2:51 am ADDENDUM #1 Dr. Vázquez discussed findings with Dr. Mike Tsai at 6:14am RELOCATION COORDINATOR, 11/23/2023. Electronically signed by: Elizabeth Vázquez MD 11/23/2023 06:27 AM RELOCATION COORDINATOR End of Addendum EXAM DESCRIPTION: Extrem Venous W Compress Tuan RadLex: US EXTREMITY VEINS BILATERAL CLINICAL HISTORY: 42 years Male; Pain;Swelling TECHNIQUE: Spectral analysis and color/grayscale sonographic images of both legs were obtained utili zing a high-frequency linear array transducer supplemented with color Doppler, compression and augmen tation techniques. COMPARISON: None. FINDINGS: Right leg veins: Common femoral: normal Greater saphenous: normal Superficial femoral: normal Popliteal: Noncompressible with echogenic material present. Diminished blood flow noted. Calf Veins: normal Left leg veins: Common femoral: normal Greater saphenous: normal Superficial femoral: normal Popliteal: normal Calf Veins: normal IMPRESSION: 1. Nonocclusive deep venous thrombosis in the right popliteal vein. 2. No sonographic evidence for left lower extremity deep venous thrombosis. Electronically signed by: Elizabeth Vázquez MD 11/23/2023 06:10 AM RELOCATION COORDINATOR Due to temporary technical issues with the PACS/Fluency reporting system, reports are being signed by the in house radiologists without review as a courtesy to insure prompt reporting. The interpreting radiologist is fully responsible for the content of the report.
--- NOTE | 2023-11-23 15:46 | RAD REPORT ---
EXAM DESCRIPTION: US - Scrotum Testicles - 11/23/2023 2:51 am CLINICAL HISTORY: 42 years Male; SWELLING TECHNIQUE: Mcintosh-scale, color, and spectral Doppler images were obtained of the testes and scrotum. COMPARISON: None FINDINGS: Right testicle: Measures 3.1 x 2.5 x 2.7 cm. Testicular echogenicity is normal with no foc al lesion. Testicular vascular flow is normal. Right epididymis: Thickened/ heterogeneous. Measures 2.8 x 1.4 x 1.4 cm. Hydrocele present. Left testicle: Measures 3.1 x 2.5 x 2.3 cm. Testicular echogenicity is normal with no focal lesion . Testicular vascular flow is normal. Left epididymis: Thickened/heterogeneous. Hydrocele present. Diffuse bilateral scrotal wall thickening and edema. IMPRESSION: 1. Preserved bilateral testicular vascular flow on Doppler. 2. Bilateral hydroceles. 3. Diffuse bilateral scrotal wall thickening and edema. 4. Nonspecific thickening and heterogeneous appearance of the bilateral epididymis. Underlying epid idymitis cannot be excluded. Electronically signed by: Elizabeth Vázquez MD 11/23/2023 06:26 AM MASTERCAM PROGRAMMER Due to temporary technical issues with the PACS/Fluency reporting system, reports are being signed by the in house radiologists without review as a courtesy to insure prompt reporting. The interpreting radiologist is fully responsible for the content of the report.
== END ==
LOC: ER 23:47
DX: I82.431 Acute embolism and thrombosis of right popliteal vein (principal); N50.89 Other specified disorders of the male genital organs
CPT/HCPCS: 71045; 76870; 93005; 93970